=== PATIENT | female | born 1960 | race Caucasian/White ===

== ENCOUNTER 2016-10-07 11:55 | Inpatient (IN) ==
[2016-10-07] MEDS ORDERED: Ipratropium/Albuterol Neb 3 ML IH ONE (12:03)
[2016-10-07] MEDS ORDERED: methylPREDNISolone 125 MG/2 ML VIAL IVP ONE (12:03)
--- NOTE | 2016-10-07 12:07 | Emergency Department Note ---
Disposition Clinical Impression: COPD exacerbation Disposition: Admitted As Inpatient Condition: Fair Referrals: Rachel Velez [employer] [Primary Care Provider] - Forms: ED Satisfaction Letter Time of Disposition: 13:35 SOB HPI - General Chief Complaint: ED Shortness of Breath/Dyspnea Stated Complaint: PEÑA Time Seen by Provider: 10/07/16 12:03 Source: family Mode of arrival: wheelchair Limitations: altered mental status Nursing Notes Reviewed: Yes Vital Signs Reviewed: Yes - History of Present Illness 56-year-old female with a history COPD smokes 2 packs of cigarettes a day comes in with increasing shortness of breath and altered mental status. Family states they were on her way to a doctor's appointment in [place] and stopped here due to the increased respiratory difficulty. Patient has been intubated in the past. On arrival initially patient was minimally responsive but with blood draws IV sticks patient was more awake was placed on BiPAP. Pt Subjective Complaint: shortness of breath Onset (ago): day(s) Context: recent illness Severity: moderate, severe Consistency/Duration: constant Improves with: nothing Worsens with: nothing Known history of: COPD Associated symptoms: Reports: cough, polyuria Treatment prior to arrival: none Cough present: Yes - Related Data Home Medications Medication Instructions Recorded Confirmed Albuterol Sulfate [Albuterol 1 puff IH Q4HR PRN 10/22/15 08/05/16 Inhaler] Alprazolam [Xanax 1 MG Tablet] 1 mg PO QID 10/22/15 08/05/16 Tiotropium [Spiriva] 18 mcg IH DAILY 10/22/15 08/05/16 Carisoprodol [Soma] 350 mg PO 1-2XD PRN 10/29/15 08/05/16 HYDROcodone/Acet 10/325 mg [[place] 1 each PO Q6H PRN 10/29/15 08/05/16 10-325 mg] Meloxicam [Mobic] 15 mg PO DAILY PRN 10/29/15 08/05/16 Montelukast [Singulair] 10 mg PO DAILY 10/29/15 08/05/16 TraZODone 50 mg PO HS PRN 10/29/15 08/05/16 Previous Rx's Medication Instructions Recorded Albuterol Neb [Proventil Neb] 3 ml IH Q4HR #0 11/06/15 Levofloxacin [Levaquin] 500 mg PO DAILY #5 tablet 11/06/15 GuaiFENesin ER [Mucinex] 1,200 mg PO BID #20 tbbp.12hr 08/05/16 Levofloxacin [Levaquin] 500 mg PO DAILY #10 tablet 08/05/16 PredniSONE [Prednisone] 60 mg PO DAILY 5 Days 08/05/16 Allergies Allergy/AdvReac Type Severity Reaction Status Date / Time naproxen AdvReac Nausea Verified 08/05/16 14:23 Constitutional: Denies: fever, chills, weakness, weight change Eyes: Denies: eye pain, eye discharge, vision change ENT ED: Denies: ear pain, throat pain, dental pain, hearing loss, epistaxis, congestion, dysphagia Cardiovascular: Denies: chest pain, palpitations, dyspnea on exertion, edema, syncope Respiratory: Reports: cough, dyspnea, wheezes. Denies: hemoptysis, stridor Gastrointestinal: Denies: abdominal pain, nausea, vomiting, diarrhea, constipation, hematemesis, melena, hematochezia Genitourinary: Denies: dysuria, frequency, hematuria, discharge Musculoskeletal: Denies: back pain, neck pain, arthralgia, myalgia Integumentary: Denies: rash, abrasion, lesions Neurological: Denies: headache, weakness, numbness, paresthesias, confusion, abnormal gait, vertigo Psychiatric: Denies: anxiety, depression, suicidal thoughts, homicidal thoughts , auditory hallucinations, visual hallucinations Endocrine: Denies: fatigue Hematological/Lymphatic: Denies: easy bleeding, easy bruising Allergic/Immunologic: Denies: facial swelling, urticaria Past Medical History - Past Medical History Medical history: Reports: COPD Surgical history: Reports: non-contributory, other (Tonsillectomy, cervical cancer, breast biopsy 2) Psychiatric history: Reports: anxiety, depression - Social History Smoking Status: Current every day smoker Smokeless Tobacco Status: No Alcohol use: Reports: none Drug use: Reports: none Physical Exam - General Limitations: no limitations General appearance: anxious, in distress (Moderate) - Head Head exam: atraumatic, normocephalic, normal inspection - Eye Eye exam: Present: normal appearance, PERRL, EOMI - ENT ENT exam: normal exam, normal oropharynx, mucous membranes moist - Neck Neck exam: Present: normal inspection, full ROM, trachea midline - Chest Chest inspection: Present: normal inspection, symmetric chest wall rise - Respiratory Respiratory exam: Present: normal lung sounds bilaterally - Cardiovascular Cardiovascular exam: Present: regular rate, normal rhythm, normal heart sounds - Abdominal Exam Abdominal exam: Present: soft, Non-Tender. Absent: tenderness, distention, guarding, rebound, rigidity - Extremities Exam Extremities exam: Present: normal inspection, full ROM. Absent: tenderness, pedal edema - Expanded Lower Extremity Exam Neurovascular/Tendon exam: Absent: motor deficit, sensory deficit, tendon deficit Gait: not tested/not observed - Back Exam Back exam: Present: normal inspection, full ROM. Absent: tenderness - Neurological Exam Neurological exam: Present: other (Somnolent but does arouse fairly easily.) - Psychiatric Psychiatric exam: Present: normal affect, normal mood - Skin Skin exam: Present: warm, dry, intact, normal color Course - Reevaluation(s) Reevaluation #1: A 56-year-old female with a history of COPD comes in pretty obtunded with difficulty breathing. Was placed on BiPAP initially and had significant improvement rather quickly. Blood gas shows a normal pH and good oxygenation with a slightly elevated CO2. Patient was able to tolerate the BiPAP with improvement. Time: 13:34 - Consultations Consultation #1: Test with , admit. Dr Woody indicates that he would make a decision on the antibiotics. Time: 13:34 Vital Signs Temperature 98.2 F 10/07/16 11:56 Pulse Rate 112 10/07/16 11:56 Respiratory Rate 36 10/07/16 11:56 Blood Pressure 125/89 10/07/16 11:56 O2 Sat by Pulse Oximetry 100 10/07/16 11:56 Temperature 98.2 F 10/07/16 11:56 Pulse Rate 112 10/07/16 11:56 Respiratory Rate 36 10/07/16 12:10 Blood Pressure 125/89 10/07/16 12:10 O2 Sat by Pulse Oximetry 100 10/07/16 12:10 Shortness of Breath/Dyspnea - Lab Data Lab results reviewed: Yes I reviewed the patient's lab results. Result diagrams: 10/07/16 12:05 10/07/16 12:05 Lab Results 10/07/16 10/07/16 10/07/16 Range/Units 12:05 12:05 12:05 WBC 8.2 (4.3-11.1) K/mcL RBC 4.81 (3.82-4.97) M/mcL Hgb 14.9 (11.5-15.4) g/dL Hct 45.8 H (35.3-44.9) % MCV 95.2 (83.0-100.0) fL MCH 31.0 (28.0-33.3) pg MCHC 32.5 (31.6-35.5) g/dL RDW 14.6 H (11.5-14.5) % Plt Count 357 (140-400) K/mcL MPV 9.4 (9.4-12.4) fL Immature Gran % 0.2 (0-4) % Seg Neutrophils % 65.2 % Lymphocytes % 20.1 % Monocytes % 13.7 % Eosinophils % 0.4 % Basophils % 0.4 % Neutrophils # 5.3 (1.6-8.9) K/mcL Lymphocytes # 1.6 (0.6-4.6) K/mcL Monocytes # 1.1 (0.0-1.3) K/mcL Eosinophils # 0.0 (0.0-0.6) K/mcL Basophils # 0.0 (0.0-0.2) K/mcL ABG pH (7.32-7.45) pH Units ABG pCO2 (35-45) mmHg ABG pO2 (85-104) mmHg ABG HCO3 (21-27) mEQ/L ABG Total CO2 (20-26) mEq/L ABG O2 Saturation (95-98) % ABG Base Excess (-2.0 to 3.0) mEq/L Blood Gas Modality Inspired O2 % Sodium 138 (136-145) mEq/L Potassium 4.1 (3.5-4.5) mEq/L Chloride 98 (98-109) mEq/L Carbon Dioxide 31 H (19-29) mEq/L BUN 11 (7-20) mg/dL Creatinine 0.69 (0.57-1.11) mg/dL Est GFR ( Amer) > 60 (> 60) Est GFR (Non-Af Amer) > 60 (> 60) BUN/Creatinine Ratio 16 (6-26) Glucose 117 H (70-99) mg/dL Calculated Osmolality 286 (280-300) Lactic Acid 1.1 (0.5-2.2) mmol/L Calcium 10.2 (8.6-10.8) mg/dL Troponin I (0-0.03) ng/mL B-Natriuretic Peptide (0-100) pg/mL 10/07/16 10/07/16 10/07/16 Range/Units 12:05 12:05 12:17 WBC (4.3-11.1) K/mcL RBC (3.82-4.97) M/mcL Hgb (11.5-15.4) g/dL Hct (35.3-44.9) % MCV (83.0-100.0) fL MCH (28.0-33.3) pg MCHC (31.6-35.5) g/dL RDW (11.5-14.5) % Plt Count (140-400) K/mcL MPV (9.4-12.4) fL Immature Gran % (0-4) % Seg Neutrophils % % Lymphocytes % % Monocytes % % Eosinophils % % Basophils % % Neutrophils # (1.6-8.9) K/mcL Lymphocytes # (0.6-4.6) K/mcL Monocytes # (0.0-1.3) K/mcL Eosinophils # (0.0-0.6) K/mcL Basophils # (0.0-0.2) K/mcL ABG pH 7.33 (7.32-7.45) pH Units ABG pCO2 60 H (35-45) mmHg ABG pO2 207 H (85-104) mmHg ABG HCO3 31.6 H (21-27) mEQ/L ABG Total CO2 33.4 H (20-26) mEq/L ABG O2 Saturation 100 H (95-98) % ABG Base Excess 3.7 H (-2.0 to 3.0) mEq/L Blood Gas Modality [place] Inspired O2 100 % Sodium (136-145) mEq/L Potassium (3.5-4.5) mEq/L Chloride (98-109) mEq/L Carbon Dioxide (19-29) mEq/L BUN (7-20) mg/dL Creatinine (0.57-1.11) mg/dL Est GFR ( Amer) (> 60) Est GFR (Non-Af Amer) (> 60) BUN/Creatinine Ratio (6-26) Glucose (70-99) mg/dL Calculated Osmolality (280-300) Lactic Acid (0.5-2.2) mmol/L Calcium (8.6-10.8) mg/dL Troponin I 0.00 (0-0.03) ng/mL B-Natriuretic Peptide < 10 (0-100) pg/mL - Radiology Data Radiology results reviewed: Yes I reviewed the patient's radiology results. Chest X-Ray 10/07/16 12:03 IMPRESSION: No acute cardiopulmonary process. Findings consistent with COPD. D/ / 10/07/2016 13:23:08 Beto Seymour MD / [email or web address] Interpreting Provider: Beto Seymour MD - EKG Data EKG attestation: Yes I reviewed and interpreted this EKG. EKG shows normal: Reports: sinus rhythm Rate: Reports: tachycardia Rhythm: Reports: PVC's Interpretation: Reports: no acute changes
[2016-10-07 12:18] LABS: Basophils % 0.4 %; Eosinophils % 0.4 %; Hematocrit 45.8 % (35.3-44.9); Hemoglobin 14.9 g/dL (11.5-15.4); Immature Granulocytes % 0.2 % (0-4); Lymphocytes # 1.6 K/mcL (0.6-4.6); Lymphocytes % 20.1 %; Mean Corpuscular HGB Conc 32.5 g/dL (31.6-35.5); Mean Corpuscular Volume 95.2 fL (83.0-100.0); Mean Platelet Volume 9.4 fL (9.4-12.4); Monocytes # 1.1 K/mcL (0.0-1.3); Monocytes % 13.7 %; Neutrophils # 5.3 K/mcL (1.6-8.9); Platelet Count 357 K/mcL (140-400); Red Blood Count 4.81 M/mcL (3.82-4.97); Red Cell Distribution Width 14.6 % (11.5-14.5); Segmented Neutrophils % 65.2 %
[2016-10-07 12:27] LABS: ABG Base Excess 3.7 mEq/L (-2.0 to 3.0); ABG HCO3 31.6 mEQ/L (21-27); ABG PCO2 60 mmHg (35-45); ABG PH 7.33 pH Units (7.32-7.45); ABG TCO2 33.4 mEq/L (20-26)
[2016-10-07] MEDS ORDERED: *HR* Rocuronium Bromide 50 MG/5 ML VIAL IVC ONE (12:27)
[2016-10-07] MEDS ORDERED: *HR* Etomidate 20 MG/10 ML AMPUL IVP ONE (12:27)
[2016-10-07 12:28] LABS: ABG PO2 207 mmHg (85-104)
[2016-10-07 12:29] LABS: ABG Oxygen Saturation 100 % (95-98); Blood Gas FiO2 100 %
[2016-10-07 12:30] LABS: BUN/Creatinine Ratio 16 (6-26); Blood Urea Nitrogen 11 mg/dL (7-20); Calcium 10.2 mg/dL (8.6-10.8); Carbon Dioxide 31 mEq/L (19-29); Chloride 98 mEq/L (98-109); Glucose 117 mg/dL (70-99); Osmolality,Calculated 286 (280-300); Potassium 4.1 mEq/L (3.5-4.5); Sodium 138 mEq/L (136-145); eGFR For African Americans > 60 (> 60); eGFR For Non-African Americans > 60 (> 60)
[2016-10-07] MEDS ORDERED: Naloxone 0.4 MG/ML INJ IVP PRN (14:31)
[2016-10-07] MEDS ORDERED: traZODone 50 MG TABLET PO PRN (14:35)
--- NOTE | 2016-10-07 14:43 | Internal Med History&Physical ---
Date of Encounter: 10/09/16 Time of Encounter: 14:37 Assessment and Plan (1) COPD exacerbation Current visit: Yes Status: Acute COPD exacerbation: -Admitted as inpatient. -Intranasal oxygen: 2 L/m: To keep saturation above 88% -Blood culture. -IV levofloxacin 750 mg every 24 hours. -IV Solu-Medrol 40 mg every 8 hours. -Inhaled DuoNeb every 4 hours. -DVT prophylaxis -GI prophylaxis -Smoking cessation discussed at length. -We will send respiratory panel (2) Severe protein-calorie malnutrition Current visit: Yes Status: Chronic May need help from dietitian evaluation (3) Tobacco use disorder Current visit: Yes Status: Chronic Not willing to quit smoking (4) Anxiety and depression Current visit: Yes Status: Chronic On Xanax (5) DVT prophylaxis Current visit: Yes Status: Acute Heparin Medical decision making: This patient is a [id number] risk of respiratory failure in spite of being on appropriate treatment. Internal Medicine - H&P: HPI Chief complaint: SOB Admitted From: Emergency Dept Plans for Post Hospital Care: Home History of present illness: PCP: [facility]. Brief past medical History: Severe COPD, Protein william malnutrition, Smoker, HPI: The patient was complaining of persistent cough along with shortness of breath for past 4 days. It was noted that her symptoms got progressively worse in the last 48 hours. Patient is complaining of yellowish-green expectoration and past 24 hours. Patient also claims that she had a spike of fever at home. I examined this patient in the emergency room. Patient's son was at bedside. Patient denies chest pain, dizziness, abdominal pain or diarrhea. Course in the emergency room: When patient arrived in the emergency room she was tachypneic and was gasping for air. Patient received IV steroids along with initial BiPAP treatment. Patient declined intubation. Patient responded well to this treatment. Reason for admission: COPD exacerbation. Family history: Noncontributory Past Med Surg Social Fam HX - Past Medical History Medical history: COPD Psychiatric history: anxiety, depression - Past Surgical History Surgical History: non-contributory, other (Tonsillectomy, cervical cancer, breast biopsy 2) - Social History Smoking Status: Current every day smoker Smokeless Tobacco Status: No Alcohol use: none Drug use: none - Family History Mother Living Status: Age at : 58 Cause of : COPD Hx Family Respiratory Disorders: Yes Father Living Status: Age at : 62 Cause of : complications from surgery Hx Family Cardiac Disorders: Yes (heart valve surgery) Hx Family Respiratory Disorders: Yes Internal Medicine - H&P: Meds Albuterol Sulfate [Albuterol Inhaler] 1 puff IH Q4HR PRN 10/22/15 [History] Alprazolam [Xanax 1 MG Tablet] 1 mg PO QID 10/22/15 [History] Tiotropium [Spiriva] 18 mcg IH DAILY 10/22/15 [History] Carisoprodol [Soma] 350 mg PO 1-2XD PRN 10/29/15 [History] HYDROcodone/Acet 10/325 mg [[place] 10-325 mg] 1 each PO Q6H PRN 10/29/15 [History ] Meloxicam [Mobic] 15 mg PO DAILY PRN 10/29/15 [History] Montelukast [Singulair] 10 mg PO DAILY 10/29/15 [History] TraZODone 50 mg PO HS PRN 10/29/15 [History] Albuterol Neb [Proventil Neb] 3 ml IH Q4HR #0 11/06/15 [Rx] Oxygen 2 l NS CONT 10/07/16 [History] Allergies ibuprofen Adverse Reaction (Verified 10/07/16 14:02) Gastrointestinal Upset naproxen Adverse Reaction (Verified 10/07/16 14:02) Nausea All Systems PM: A 10-system review of systems was performed and is negative for pertinent findings except as documented above in the HPI. - Constitutional Constitutional: no chills, no fever(s), no night sweats - EENT Eyes: no change in vision, no discharge, no pain, no photophobia Ears: no ear discharge, no ear pain, no tinnitus Nose, mouth and throat: no dysphagia, no nasal discharge, no neck pain, no sore throat - Cardiovascular Cardiovascular ROS IM: no chest pain, no diaphoresis, no dyspnea, no lightheadedness, no palpitations, no syncope - Respiratory Respiratory: dyspnea, wheezing, no cough, no excessive phlegm production - Gastrointestinal Gastrointestinal: no abdominal pain, no diarrhea, no hematemesis, no hematochezia, no melena, no nausea, no vomiting - Genitourinary Genitourinary: no change in urinary stream, no dysuria, no flank pain, no hematuria - Musculoskeletal Musculoskeletal ROS IM: no numbness, no tingling - Integumentary Integumentary IM: no rash, no unusual bruising - Neurological Neurological ROS: no confusion, no convulsions, no focal weakness, no numbness, no tingling, no tremor(s) - Hematologic/Lymphatic Hematologic/Lymphatic: no easy bruising - Constitutional Vitals: Temp Pulse Resp BP Pulse Ox 98.2 F 112 36 125/89 100 10/07/16 11:56 10/07/16 11:56 10/07/16 12:10 10/07/16 12:10 10/07/16 12:10 General appearance: Present: cachectic, A&O X 3, pleasant, answers questions appropriately - Head Head exam: Present: atraumatic, normocephalic - Eye Eye exam: Present: PERRL, conjuntiva pink, sclera anicteric Pupils: Present: PERRL - Neck Neck exam general surgery: Present: supple, trachea midline. Absent: lymphadenopathy - Respiratory Respiratory exam: Present: CTAB. Absent: accessory muscle use, rales, rhonchi, wheezes - Cardiovascular Cardiovascular exam: Present: RRR, +S1, +S2. Absent: diastolic murmur, gallop, rubs, systolic murmur - GI/Abdominal GI/Abdominal exam: Present: normal bowel sounds, soft, no peritoneal signs. Absent: distended, tenderness - Extremities Exam Extremities exam: Present: warm, radial pulses palpable and symetrical. Absent : calf tenderness, cyanotic, pedal edema - Neurological Exam Neurological exam: Present: CN II-XII intact, oriented X3, no focal deficits. Absent: pronater drift, facial droop, speech deficit - Skin Skin exam: Present: dry, intact Internal Med - H&P Results - Labs CBC & Chem 7: 10/08/16 03:38 10/08/16 03:38 Labs: Lab discussed with the emergency room physician.
[2016-10-07] MEDS: Ipratropium/Albuterol Neb 3 ML IH PRN ×3 (16:17→23:29)
[2016-10-07] MEDS: ALPRAZolam 1 MG TABLET PO SCH (17:26)
[2016-10-07] MEDS: MethylPREDNISolone 40 MG/ML VIAL IVP SCH (17:36)
[2016-10-07] MEDS: 0.9 % Sodium Chloride 1,000 ML IVC SCH (17:39)
[2016-10-07] MEDS: Levofloxacin 750 MG/150 ML 750 MG/150 ML BAG IVPB SCH (17:42)
[2016-10-07 18:07] LABS: Bilirubin,Urine Negative (Negative); Blood,Urine Negative (Negative); Clarity,Urine Cloudy (Clear); Color,Urine Yellow (Yellow); Glucose,Urine (UA) Normal (Normal); Ketones,Urine 15 mg/dL (Negative); Leukocyte Esterase,Urine Negative (Negative); Nitrite,Urine Negative (Negative); PH,Urine 5.5 pH Units (5.0-8.0); Protein,Urine Negative (Neg-Trace); Specific Gravity,Urine 1.025 (1.010-1.025); Urobilinogen,Urine Normal (Normal)
[2016-10-07 18:09] LABS: Bacteria,Urine None Seen per hpf (None-Few); Hyaline Casts,Urine None Seen per lpf (None-Few); RBC,Urine 0-3 per hpf (0-3); Squamous Epithelial Cell,Urine Many per lpf (None-Few); WBC,Urine 0-3 per hpf (0-3)
[2016-10-07] MEDS: *HR* Morphine 2 MG/ML SYRINGE IVP PRN (22:00)
[2016-10-08] MEDS ORDERED: ALPRAZolam 1 MG TABLET PO STA (00:40)
[2016-10-08] MEDS: MethylPREDNISolone 40 MG/ML VIAL IVP SCH ×3 (01:34→16:34)
[2016-10-08] MEDS: ALPRAZolam 1 MG TABLET PO SCH ×5 (01:36→21:59)
[2016-10-08 03:22] LABS: Adenovirus Not Detected (Not Detect); Coronavirus 229E Not Detected (Not Detect); Coronavirus HKU1 Not Detected (Not Detect); Coronavirus NL63 Not Detected (Not Detect); Human Metapneumovirus Not Detected (Not Detect); Human Rhinovirus/Enterovirus Not Detected (Not Detect); Influenza A Subtype 2009 H1 Not Detected (Not Detect); Influenza A Untypeable Not Detected (Not Detect); Influenza B Not Detected (Not Detect)
[2016-10-08 03:23] LABS: Bordetella Pertussis Not Detected (Not Detect); Chlamydophila pneumoniae Not Detected (Not Detect); Mycoplasma pneumoniae Not Detected (Not Detect); Parainfluenza Virus 1 Not Detected (Not Detect); Parainfluenza Virus 2 Not Detected (Not Detect); Parainfluenza Virus 3 Not Detected (Not Detect); Parainfluenza Virus 4 Not Detected (Not Detect); Respiratory Syncytial Virus Not Detected (Not Detect)
[2016-10-08 03:41] LABS: Coronavirus OC43 ***DETECTED*** (Not Detect)
[2016-10-08] MEDS: Ipratropium/Albuterol Neb 3 ML IH PRN ×2 (04:09→07:47)
[2016-10-08 04:23] LABS: Basophils % 0.2 %; Hemoglobin 13.7 g/dL (11.5-15.4); Immature Granulocytes % 0.3 % (0-4); Lymphocytes # 0.7 K/mcL (0.6-4.6); Lymphocytes % 11.5 %; Mean Corpuscular HGB Conc 32.6 g/dL (31.6-35.5); Mean Corpuscular Hemoglobin 30.8 pg (28.0-33.3); Mean Corpuscular Volume 94.4 fL (83.0-100.0); Mean Platelet Volume 9.5 fL (9.4-12.4); Monocytes # 0.3 K/mcL (0.0-1.3); Monocytes % 4.6 %; Neutrophils # 5.3 K/mcL (1.6-8.9); Platelet Count 322 K/mcL (140-400); Red Blood Count 4.45 M/mcL (3.82-4.97); Red Cell Distribution Width 14.3 % (11.5-14.5); Segmented Neutrophils % 83.4 %
[2016-10-08 04:43] LABS: Alanine Aminotransferase 18 Units/L (0-55); Albumin 3.4 g/dL (3.5-5.0); Albumin/Globulin Ratio 0.8 (1.1-2.2); Alkaline Phosphatase 93 Units/L (38-126); Aspartate Amino Transferase 22 Units/L (5-34); BUN/Creatinine Ratio 21 (6-26); Bilirubin,Total 0.3 mg/dL (0.2-1.2); Blood Urea Nitrogen 14 mg/dL (7-20); Calcium 9.6 mg/dL (8.6-10.8); Carbon Dioxide 24 mEq/L (19-29); Chloride 102 mEq/L (98-109); Chol/HDL Ratio 2.5 (0-4.9); Cholesterol 170 mg/dL (< 200); Globulin 4.1 g/dL (2.4-3.5); Glucose 109 mg/dL (70-99); HDL Cholesterol 67 mg/dL (40-59); LDL Cholesterol,Calculated 91 mg/dL (0-99); Osmolality,Calculated 289 (280-300); Phosphorous 3.8 mg/dL (2.3-4.7); Potassium 4.8 mEq/L (3.5-4.5); Sodium 139 mEq/L (136-145); Total Protein 7.5 g/dL (6.0-8.3); Triglycerides 58 mg/dL (< 150); eGFR For African Americans > 60 (> 60); eGFR For Non-African Americans > 60 (> 60)
[2016-10-08] MEDS: Levofloxacin 750 MG/150 ML 750 MG/150 ML BAG IVPB SCH (08:16)
--- NOTE | 2016-10-08 09:48 | Electrocardiograph Report ---
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
--- NOTE | 2016-10-08 10:51 | Internal Med Progress Note ---
Date of Encounter: 10/08/16 Time of Encounter: 10:49 - Assessment and plan (1) Acute exacerbation of chronic obstructive airways disease Current Visit: Yes Status: Acute Assessment and plan: continue scheduled bronchodilators and IV steroids, Singulair; empiric antibiotic therapy; no e/o infiltrates on chest XRay; continue supplemental O2 as needed, noted to be on home O2; Will consult Pulmonology for further recommendations; Patient refuses intubation but wishes to have CPR and resuscitation; palliative care consult for DPOA and living will paperwork and code status discussion; (2) Acute on chronic respiratory failure with hypoxia Current Visit: Yes Status: Acute Assessment and plan: due to COPD exacerbation; plan as above; (3) GERD (gastroesophageal reflux disease) Current Visit: Yes Status: Chronic Qualifiers: Esophagitis presence: esophagitis presence not specified Qualified Code(s) : K21.9 - Gastro-esophageal reflux disease without esophagitis (4) Severe protein-calorie malnutrition Current Visit: Yes Status: Chronic (5) Tobacco use disorder Current Visit: Yes Status: Chronic (6) Anxiety and depression Current Visit: Yes Status: Chronic Assessment and plan: patient noted to have problems with chronic anxiety disorder and panic attacks and had side-effects from several anxiolytics used as outpatient; continue home dose of Xanax and start PRN IV Ativan for longer lasting effects; needs outpatient Psychiatry f/up; - Subjective Interval history: Feels better but reports some shortness of breath and productive cough with brownish sputum; intermittent left and right sided chest pains from coughing; also has panic attacks; - Constitutional Vitals: Temp Pulse Resp BP Pulse Ox 98.2 F 85 20 112/76 96 10/08/16 03:53 10/08/16 07:00 10/08/16 07:47 10/08/16 07:00 10/08/16 07:47 General appearance: Present: cachectic, A&O X 3, answers questions appropriately - Respiratory Respiratory exam: Present: rhonchi (B/L diffuse rhonchi and end-expiratory wheezing), wheezes. Absent: accessory muscle use, rales - GI/Abdominal GI/Abdominal exam: Present: normal bowel sounds, soft, no peritoneal signs. Absent: distended, tenderness - Extremities Exam Extremities exam: Present: full ROM, warm, radial pulses palpable and symetrical. Absent: calf tenderness, cyanotic, pedal edema - Neurological Exam Neurological exam: Present: CN II-XII intact, oriented X3, no focal deficits. Absent: pronater drift, facial droop, speech deficit - Skin Skin exam: Present: dry, intact Internal Medicine: Result - Labs CBC & Chem 7: 10/08/16 03:38 10/08/16 03:38 Labs: Short CBC 10/08/16 Range/Units 03:38 WBC 6.4 (4.3-11.1) K/mcL Hgb 13.7 (11.5-15.4) g/dL Hct 42.0 (35.3-44.9) % Plt Count 322 (140-400) K/mcL Neutrophils # 5.3 (1.6-8.9) K/mcL BMP 10/08/16 03:38 Sodium 139 Potassium 4.8 H Chloride 102 Carbon Dioxide 24 BUN 14 Creatinine 0.68 Glucose 109 H Calcium 9.6 Cardiac Enzymes 10/07/16 10/07/16 10/08/16 Range/Units 14:46 22:43 03:38 Troponin I 0.00 0.01 0.00 (0-0.03) ng/mL Liver Function 10/08/16 Range/Units 03:38 Total Bilirubin 0.3 (0.2-1.2) mg/dL AST 22 (5-34) Units/L ALT 18 (0-55) Units/L Alkaline Phosphatase 93 (38-126) Units/L Albumin 3.4 L (3.5-5.0) g/dL Urine 10/07/16 Range/Units 18:00 Urine Color Yellow (Yellow) Urine Clarity Cloudy A (Clear) Urine pH 5.5 (5.0-8.0) pH Units Ur Specific [place] 1.025 (1.010-1.025) Urine Protein Negative (Neg-Trace) mg/dL Urine Glucose (UA) Normal (Normal) mg/dL - ABG Interpretation ABG results: ABG ABG pH 7.33 pH Units (7.32-7.45) 10/07/16 12:17 ABG pCO2 60 mmHg (35-45) H 10/07/16 12:17 ABG pO2 207 mmHg (85-104) H 10/07/16 12:17 ABG O2 Saturation 100 % (95-98) H 10/07/16 12:17 Consult Discharge Plan - Plan Referrals: Rachel Velez CNP [Primary Care Provider] - 10/15/16 10:00 am
[2016-10-08] MEDS: Ipratropium/Albuterol Neb 3 ML IH SCH ×4 (11:52→23:32)
[2016-10-08] MEDS ORDERED: Albuterol 2.5 MG/3 ML NEBULIZER IH SCH (12:00)
[2016-10-08] MEDS ORDERED: Albuterol 2.5 MG/3 ML NEBULIZER IH PRN (12:03)
[2016-10-08] MEDS: *HR* Morphine 2 MG/ML SYRINGE IVP PRN (16:32)
--- NOTE | 2016-10-08 16:49 | Pulmonology Consult Note ---
Date of Encounter: 10/08/16 Time of Encounter: 16:20 Assessment and Plan (1) Acute on chronic respiratory failure with hypoxia Current Visit: Yes Status: Acute Wean off FIO2 to keep SPO2 arund 90% and treatment of copd exacerbation (2) COPD exacerbation Current Visit: Yes Status: Acute She is on appropriate treatment with antibiotic and bronchodilators. I will increase her systemic steroid and she need to quit smoking. (3) Tobacco use disorder Current Visit: Yes Status: Chronic Advised her to quit smoking. History of Present Illness Consult date: 10/08/16 Requesting physician: Alissa Ramos Reason for consult: COPD Chief complaint: Dyspnea History of present illness: Pleasant 56-year-old female with severe COPD we will continue to smoke tobacco presented to the hospital having symptoms consistent with COPD exacerbation. Patient has been having more productive cough with brown sputum and no hemoptysis with left-sided chest pain as well as wheezing and more shortness of breath. She was treated as outpatient with antibiotics without success. Then she feeling better now since she is being admitted and treated as inpatient. She is on home oxygen 2 L/m and she had multiple exacerbation. I have tried hard working with her to quit smoking as outpatient, unfortunately due to hair and anxiety it has been very challenging for her to quit smoking. Past Med Surg Social Fam HX - Past Medical History Medical history: COPD Psychiatric history: anxiety, depression - Past Surgical History Surgical History: non-contributory, other (Tonsillectomy, cervical cancer, breast biopsy 2) - Social History Smoking Status: Current every day smoker Packs per day: 1/4 Smokeless Tobacco Status: No Alcohol use: none Drug use: none - Family History Mother Living Status: Age at : 58 Cause of : COPD Hx Family Respiratory Disorders: Yes Father Living Status: Age at : 62 Cause of : complications from surgery Hx Family Cardiac Disorders: Yes (heart valve surgery) Hx Family Respiratory Disorders: Yes Medications and Allergies Albuterol Sulfate [Albuterol Inhaler] 1 puff IH Q4HR PRN 10/22/15 [History] Alprazolam [Xanax 1 MG Tablet] 1 mg PO QID 10/22/15 [History] Tiotropium [Spiriva] 18 mcg IH DAILY 10/22/15 [History] Carisoprodol [Soma] 350 mg PO 1-2XD PRN 10/29/15 [History] HYDROcodone/Acet 10/325 mg [[place] 10-325 mg] 1 each PO Q6H PRN 10/29/15 [History ] Meloxicam [Mobic] 15 mg PO DAILY PRN 10/29/15 [History] Montelukast [Singulair] 10 mg PO DAILY 10/29/15 [History] TraZODone 50 mg PO HS PRN 10/29/15 [History] Albuterol Neb [Proventil Neb] 3 ml IH Q4HR #0 11/06/15 [Rx] Oxygen 2 l NS CONT 10/07/16 [History] Allergies ibuprofen Adverse Reaction (Verified 10/07/16 14:02) Gastrointestinal Upset naproxen Adverse Reaction (Verified 10/07/16 14:02) Nausea All Systems: A 10-system review of systems was performed and is negative for pertinent findings except as documented above in the HPI. Physical Examination Vital Signs: Vital Signs, Last 4 Hours Temp Pulse Resp BP Pulse Ox 10/08/16 15:00 97.5 F L 104 20 101/67 93 L General appearance: no acute distress Eyes: nonicteric ENT: oropharynx moist Mallampati (class): 1 Neck: supple, no lymphadenopathy Effort: mildly labored Inspection: hyperextended Auscultation: bilateral: rhonchi Percussion: bilateral: not dull Cardiovascular: regular rate and rhythm Gastrointestinal: normoactive bowel sounds Extremities: no cyanosis normal mental status, non-focal exam anxious Results - Laboratory Findings CBC and BMP: 10/08/16 03:38 10/08/16 03:38 ABG ABG pH 7.33 pH Units (7.32-7.45) 10/07/16 12:17 ABG pCO2 60 mmHg (35-45) H 10/07/16 12:17 ABG pO2 207 mmHg (85-104) H 10/07/16 12:17 ABG O2 Saturation 100 % (95-98) H 10/07/16 12:17 Abnormal lab findings: Abnormal lab results ABG pCO2 60 mmHg (35-45) H 10/07/16 12:17 ABG pO2 207 mmHg (85-104) H 10/07/16 12:17 ABG HCO3 31.6 mEQ/L (21-27) H 10/07/16 12:17 ABG Total CO2 33.4 mEq/L (20-26) H 10/07/16 12:17 ABG O2 Saturation 100 % (95-98) H 10/07/16 12:17 ABG Base Excess 3.7 mEq/L (-2.0 to 3.0) H 10/07/16 12:17 Potassium 4.8 mEq/L (3.5-4.5) H 10/08/16 03:38 Glucose 109 mg/dL (70-99) H 10/08/16 03:38 Albumin 3.4 g/dL (3.5-5.0) L 10/08/16 03:38 Globulin 4.1 g/dL (2.4-3.5) H 10/08/16 03:38 Albumin/Globulin Ratio 0.8 (1.1-2.2) L 10/08/16 03:38 HDL Cholesterol 67 mg/dL (40-59) H 10/08/16 03:38 Urine Clarity Cloudy (Clear) A 10/07/16 18:00 Urine Ketones 15 mg/dL (Negative) H 10/07/16 18:00 Ur Squamous Epith Cells Many per lpf (None-Few) H 10/07/16 18:00 Coronavirus OC43 (PCR) DETECTED (Not Detect) A 10/08/16 01:59 - Diagnostic Findings Chest x-ray: report reviewed, image reviewed - Clinical Findings Intake & Output: Intake & Output 10/08/16 10/08/16 10/08/16 07:59 15:59 23:59 Intake Total 240 / 240 Output Total 400 / 400 Balance -400 / -400 240 / 240 Weight 40.4 kg Consult Discharge Plan - Plan Referrals: Rachel Velez, SEASONING MIXER [Primary Care Provider] - 10/15/16 10:00 am
[2016-10-08] MEDS: Acetylcysteine 10% 2 ML INHSOL IH SCH ×2 (16:55→19:55)
[2016-10-08] MEDS: *HR* Heparin 5,000 UNIT/ML VIAL SQ SCH (17:25)
[2016-10-08] MEDS: 0.9 % Sodium Chloride 1,000 ML IVC SCH ×2 (19:25→19:34)
[2016-10-09] MEDS ORDERED: methylPREDNISolone 125 MG/2 ML VIAL IVP SCH
[2016-10-09] MEDS: Acetylcysteine 10% 2 ML INHSOL IH SCH ×4 (04:12→20:54)
[2016-10-09] MEDS: Ipratropium/Albuterol Neb 3 ML IH SCH ×5 (04:12→20:53)
[2016-10-09] MEDS: *HR* Heparin 5,000 UNIT/ML VIAL SQ SCH ×3 (06:19→20:34)
[2016-10-09] MEDS: MethylPREDNISolone 40 MG/ML VIAL IVP SCH ×2 (08:03)
[2016-10-09] MEDS: ALPRAZolam 1 MG TABLET PO SCH ×4 (08:36→20:35)
[2016-10-09] MEDS: Levofloxacin 500 MG/100 ML 500 MG/100 ML BAG IVPB SCH (08:38)
[2016-10-09] MEDS: 0.9 % Sodium Chloride 1,000 ML IVC SCH (10:12)
--- NOTE | 2016-10-09 12:43 | Palliative - Consult Note ---
Date of Encounter: 10/09/16 Time of Encounter: 11:00 - Assessment and Plan (1) Dyspnea Current Visit: Yes Status: Acute Assessment and plan: Supplemental oxygen at 2-3 L per nasal cannula. Nebulizers per pulmonology/ hospitalist. Qualifiers: Dyspnea type: shortness of breath Qualified Code(s): R06.02 - Shortness of breath (2) Anxiety and depression Current Visit: Yes Status: Chronic Assessment and plan: Continue with Xanax QID as scheduled. field services director following for discharge needs. Packaging Design Engineer support will be provided. (3) Severe protein-calorie malnutrition Current Visit: Yes Status: Chronic Assessment and plan: Dietitian following. (4) Goals of care, counseling/discussion Current Visit: Yes Status: Acute Assessment and plan: field services director following for discharge needs. Discussed goals of care with Ms. Sharma regarding discharge planning and code status. She wanted more information regarding mechanical ventilation. Discussed patient's prior experience with mechanical ventilation as well as her father's experience with long term acute care registered nurse mechanical ventilation (4 months). During the conversation, Ms. Sharma 's anxiety level began to elevate, so the discussion was put on pause. Will follow up for additional questions/concerns when her daughter can be present in the room. Palliative-CN HPI - Data of Consult Patient: new to practice Consult date: 10/09/16 Requesting Physician: Alissa Ramos MD Primary Care Provider: Rachel Velez CNP - Consult Narrative Palliative Care/Comfort Measures: Palliative care Reason for consult: Goals of care History of present illness: Ms. Sharma is a 56 year old female presenting to [facility] with complaints of difficulty breathing and altered mental status. Symptoms started approximately 4 days prior to admission. While in the emergency department, Ms. Sharma was placed on BiPAP therapy in the ED after declining intubation. She was admitted for further work-up and treatment. A respiratory panel was positive for coronavirus. She is being treated for an acute exacerbation of COPD, acute on chronic respiratory failure. Ms. Sharma also suffers from chronic anxiety. Ms. Sharma has a history of chronic pain due to a work related injury. She follows with Dr. Morales out of [place]. OARRS report reviewed and appropriate. Ms. Sharma is mostly sedentary. Her anxiety contributes to this lifestyle. She expressed concerns with her spirituality as she is no longer able to attend tenriism services due to her difficulty breathing. Ms. Sharma is not able to drive and relies on her family/friends/and support system for care needed outside of the home (phamacy trips, doctors appointments, grocery store) . CC: Alissa Ramos MD Past Med Surg Social Fam HX - Past Medical History Source: patient, old records reviewed Medical history: COPD, other (chronic back pain) Psychiatric history: anxiety, depression - Past Surgical History Surgical History: other (Tonsillectomy, cervical cancer, breast biopsy 2) - Social History Smoking Status: Current every day smoker Packs per day: 1/2 Smokeless Tobacco Status: No Alcohol use: none Drug use: none Current living situation: Home, With Family Activity Level: Mostly sedentary - Family History Mother Living Status: Age at : 58 Cause of : COPD Hx Family Respiratory Disorders: Yes Father Living Status: Age at : 62 Cause of : complications from surgery Hx Family Cardiac Disorders: Yes (heart valve surgery) Hx Family Respiratory Disorders: Yes Medications and Allergies Albuterol Sulfate [Albuterol Inhaler] 1 puff IH Q4HR PRN 10/22/15 [History] Alprazolam [Xanax 1 MG Tablet] 1 mg PO QID 10/22/15 [History] Tiotropium [Spiriva] 18 mcg IH DAILY 10/22/15 [History] Carisoprodol [Soma] 350 mg PO 1-2XD PRN 10/29/15 [History] HYDROcodone/Acet 10/325 mg [[place] 10-325 mg] 1 each PO Q6H PRN 10/29/15 [History ] Meloxicam [Mobic] 15 mg PO DAILY PRN 10/29/15 [History] Montelukast [Singulair] 10 mg PO DAILY 10/29/15 [History] TraZODone 50 mg PO HS PRN 10/29/15 [History] Albuterol Neb [Proventil Neb] 3 ml IH Q4HR #0 11/06/15 [Rx] Oxygen 2 l NS CONT 10/07/16 [History] Allergies ibuprofen Adverse Reaction (Verified 10/07/16 14:02) Gastrointestinal Upset naproxen Adverse Reaction (Verified 10/07/16 14:02) Nausea - Constitutional Constitutional ROS PAL: decreased appetite, fever(s), weight loss - EENT Eyes: no change in vision Ears: no decreased hearing Ears, nose, mouth, throat: no sinus pain, no dry mouth, no dysphagia, no hoarseness, no mouth pain, no sore throat - Cardiovascular Cardiovascular ROS: dyspnea on exertion, no chest pain, no chest pain with activity, no irregular heart rhythm, no pedal edema - Respiratory Respiratory: cough, dyspnea, dyspnea on exertion, wheezing, chest congestion, excessive phlegm production, no hemoptysis - Gastrointestinal Gastrointestinal: no abdominal pain, no constipation, no diarrhea, no nausea, no vomiting - Genitourinary Palliative ROS female: no difficulty voiding - Musculoskeletal Musculoskeletal ROS IM: muscle weakness - Integumentary ROS Integumentary: no sores, no wounds - Neurological Neurological ROS: weakness (global), no confusion, no lack of coordination, no numbness - Psychiatric Psychiatric general PM: anxiety, depression, difficulty concentrating Palliative Care-Exam - Constitutional Vitals: Temp Pulse Resp BP Pulse Ox 98.0 F 94 17 134/81 90 L 10/09/16 11:42 10/09/16 11:42 10/09/16 11:42 10/09/16 11:42 10/09/16 11:42 General appearance: Present: cooperative, mild distress (tearful), thin - Head Head Exam: Present: atraumatic - Eye Eye exam: Present: EOMI Pupils: Present: PERRL - ENT ENT exam: Present: mucous membranes moist - Expanded ENT Exam Teeth exam: Present: edentulous (dentures intact) - Respiratory Respiratory exam: Present: prolonged expiratory phase, rhonchi, wheezes, tachypnea - Cardiovascular Cardiovascular exam: Present: RRR. Absent: bradycardia, tachycardia - GI/Abdominal Exam GI/Abdominal exam: Present: normal bowel sounds, soft. Absent: tenderness - Rectal Rectal exam: Present: deferred - Neurological Exam Neurological exam: Present: alert, oriented X3, strengths equal and symetr throughout - Psychiatric Psychiatric exam: Present: anxious Additional comments: tearful - Skin Skin exam: Present: dry, warm Internal Medicine - CN: Reslt - Labs CBC & Chem 7: 10/08/16 03:38 10/08/16 03:38 - ABG Interpretation ABG results: ABG ABG pH 7.33 pH Units (7.32-7.45) 02/28/17 12:17 ABG pCO2 60 mmHg (35-45) H 10/07/16 12:17 ABG pO2 207 mmHg (85-104) H 10/07/16 12:17 ABG O2 Saturation 100 % (95-98) H 10/07/16 12:17 Consult Discharge Plan - Plan Referrals: Rachel Velez CNP [Primary Care Provider] - 10/15/16 10:00 am Palliative Quality Palliative Quality: Screen for Code Status: Yes, Screen for Goals of Care: Yes, Screen for Pain: Yes, If Pain Regimen Started, Initiate Bowel Regimen: NA, Screen for Nausea/Vomitting: Yes
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
[2016-10-09] MEDS: methylPREDNISolone 125 MG/2 ML VIAL IVP SCH ×2 (15:37→23:18)
[2016-10-09] MEDS: *HR* Morphine 2 MG/ML SYRINGE IVP PRN ×2 (15:38→20:35)
--- NOTE | 2016-10-09 17:01 | Pulmonology Progress Note ---
Date of Encounter: 10/09/16 Time of Encounter: 13:00 Assessment and Plan (1) Acute on chronic respiratory failure with hypoxia Current Visit: Yes Status: Acute patient is feeling better on current treatment. (2) COPD exacerbation Current Visit: Yes Status: Acute Continue current treatment. (3) Tobacco use disorder Current Visit: Yes Status: Chronic Advised patient to quit smoking Subjective Principal diagnosis: COPD exacerbation Interval history: Patient is feeling better now and she still have problems with thick sputum. Objective PUL Vital signs: Last Vital Signs Temp 98.1 F 10/09/16 16:14 Pulse 93 10/09/16 16:14 Resp 12 10/09/16 16:14 BP 107/61 10/09/16 16:14 Pulse Ox 94 L 10/09/16 16:14 General appearance: no acute distress ENT: oropharynx moist Effort: normal Auscultation: bilateral: diminished breath sounds Percussion: bilateral: not dull Cardiovascular: regular rate and rhythm Gastrointestinal: normoactive bowel sounds Extremities: no cyanosis normal mental status, non-focal exam anxious Results - Laboratory Findings CBC and BMP: 10/08/16 03:38 10/08/16 03:38 ABG ABG pH 7.33 pH Units (7.32-7.45) 10/07/16 12:17 ABG pCO2 60 mmHg (35-45) H 10/07/16 12:17 ABG pO2 207 mmHg (85-104) H 10/07/16 12:17 ABG O2 Saturation 100 % (95-98) H 10/07/16 12:17 Abnormal lab findings: Abnormal lab results ABG pCO2 60 mmHg (35-45) H 10/07/16 12:17 ABG pO2 207 mmHg (85-104) H 10/07/16 12:17 ABG HCO3 31.6 mEQ/L (21-27) H 10/07/16 12:17 ABG Total CO2 33.4 mEq/L (20-26) H 10/07/16 12:17 ABG O2 Saturation 100 % (95-98) H 10/07/16 12:17 ABG Base Excess 3.7 mEq/L (-2.0 to 3.0) H 10/07/16 12:17 Potassium 4.8 mEq/L (3.5-4.5) H 10/08/16 03:38 Glucose 109 mg/dL (70-99) H 10/08/16 03:38 POC Glucose 124 (58-89) H 10/08/16 20:19 Albumin 3.4 g/dL (3.5-5.0) L 10/08/16 03:38 Globulin 4.1 g/dL (2.4-3.5) H 10/08/16 03:38 Albumin/Globulin Ratio 0.8 (1.1-2.2) L 10/08/16 03:38 HDL Cholesterol 67 mg/dL (40-59) H 10/08/16 03:38 Urine Clarity Cloudy (Clear) A 10/07/16 18:00 Urine Ketones 15 mg/dL (Negative) H 10/07/16 18:00 Ur Squamous Epith Cells Many per lpf (None-Few) H 10/07/16 18:00 Coronavirus OC43 (PCR) DETECTED (Not Detect) A 10/08/16 01:59 - Clinical Findings Intake & Output: Intake & Output 10/09/16 10/09/16 10/09/16 07:59 15:59 23:59 Intake Total 0 / 0 1720 / 1720 Balance 0 / 0 1720 / 1720 Weight 41.4 kg Consult Discharge Plan - Plan Referrals: Rachel Velez, MATERIALS SUPERVISOR [Primary Care Provider] - 10/15/16 10:00 am
[2016-10-10] MEDS: Ipratropium/Albuterol Neb 3 ML IH SCH ×6 (00:11→19:55)
[2016-10-10] MEDS: *HR* LORazepam 2 MG/ML VIAL IVP PRN (02:26)
[2016-10-10] MEDS: Acetylcysteine 10% 2 ML INHSOL IH SCH (04:50)
[2016-10-10] MEDS: *HR* Heparin 5,000 UNIT/ML VIAL SQ SCH ×2 (06:16→18:54)
[2016-10-10] MEDS: methylPREDNISolone 125 MG/2 ML VIAL IVP SCH ×2 (08:15→16:27)
[2016-10-10] MEDS: Levofloxacin 500 MG/100 ML 500 MG/100 ML BAG IVPB SCH (08:16)
[2016-10-10] MEDS: ALPRAZolam 1 MG TABLET PO SCH ×4 (08:16→21:22)
--- NOTE | 2016-10-10 09:35 | Pulmonology Progress Note ---
Date of Encounter: 10/10/16 Time of Encounter: 08:05 Assessment and Plan (1) Acute on chronic respiratory failure with hypoxia Current Visit: Yes Status: Acute patient is feeling better on current treatment. 3/3 Patient breathing is about the same and suspect she is close to her baseline (2) COPD exacerbation Current Visit: Yes Status: Acute Continue current treatment. 3/3 Stop Mucomyst inhalation cause some COPD patient's current paradoxically react and may worsen dyspnea. Otherwise continue current treatment. (3) Tobacco use disorder Current Visit: Yes Status: Chronic Advised patient to quit smoking Subjective Principal diagnosis: COPD exacerbation Interval history: Patient is feeling better now and she still have problems with thick sputum. 3/3 Patient feels she has paradoxical reaction to Mucomyst and her shortness of breath was worsened Objective PUL Vital signs: Last Vital Signs Temp 97.8 F 10/10/16 00:08 Pulse 81 10/10/16 06:00 Resp 16 10/10/16 06:00 BP 127/89 10/10/16 06:00 Pulse Ox 96 10/10/16 08:55 General appearance: appears uncomfortable Eyes: nonicteric Mallampati (class): 1 Neck: supple Effort: mildly labored Auscultation: bilateral: diminished breath sounds Percussion: bilateral: not dull Cardiovascular: regular rate and rhythm Gastrointestinal: normoactive bowel sounds Extremities: no cyanosis normal mental status, non-focal exam depressed Results - Laboratory Findings CBC and BMP: 10/08/16 03:38 10/08/16 03:38 ABG ABG pH 7.33 pH Units (7.32-7.45) 10/07/16 12: ABG pCO2 60 mmHg (35-45) H 10/07/16 12:17 ABG pO2 207 mmHg (85-104) H 10/07/16 12:17 ABG O2 Saturation 100 % (95-98) H 10/07/16 12:17 Abnormal lab findings: Abnormal lab results ABG pCO2 60 mmHg (35-45) H 10/07/16 12:17 ABG pO2 207 mmHg (85-104) H 10/07/16 12:17 ABG HCO3 31.6 mEQ/L (21-27) H 10/07/16 12:17 ABG Total CO2 33.4 mEq/L (20-26) H 10/07/16 12:17 ABG O2 Saturation 100 % (95-98) H 10/07/16 12:17 ABG Base Excess 3.7 mEq/L (-2.0 to 3.0) H 10/07/16 12:17 Potassium 4.8 mEq/L (3.5-4.5) H 10/08/16 03:38 Glucose 109 mg/dL (70-99) H 10/08/16 03:38 POC Glucose 159 (58-89) H 10/10/16 00:28 Albumin 3.4 g/dL (3.5-5.0) L 10/08/16 03:38 Globulin 4.1 g/dL (2.4-3.5) H 10/08/16 03:38 Albumin/Globulin Ratio 0.8 (1.1-2.2) L 10/08/16 03:38 HDL Cholesterol 67 mg/dL (40-59) H 10/08/16 03:38 Urine Clarity Cloudy (Clear) A 10/07/16 18:00 Urine Ketones 15 mg/dL (Negative) H 10/07/16 18:00 Ur Squamous Epith Cells Many per lpf (None-Few) H 10/07/16 18:00 Coronavirus OC43 (PCR) DETECTED (Not Detect) A 10/08/16 01:59 - Clinical Findings Intake & Output: Intake & Output 10/09/16 10/10/16 10/10/16 23:59 07:59 15:59 Intake Total 540 / 540 200 / 200 Output Total 800 / 800 500 / 500 Balance -260 / -260 200 / 200 -500 / -500 Weight 41.4 kg Consult Discharge Plan - Plan Referrals: Rachel Velez, PROCESS ASSISTANT [Primary Care Provider] - 10/15/16 10:00 am
[2016-10-10] MEDS ORDERED: Carisoprodol 350 MG TABLET PO PRN (11:53)
[2016-10-10] MEDS ORDERED: Temazepam 15 MG CAPSULE PO PRN (11:53)
[2016-10-10] MEDS: *HR* HYDROcodone/Acet 10/325 mg TABLET PO PRN (16:27)
--- NOTE | 2016-10-10 17:21 | Internal Med Progress Note ---
Date of Encounter: 10/10/16 Time of Encounter: 12:30 - Assessment and plan (1) Acute exacerbation of chronic obstructive airways disease Status: Acute Assessment and plan: continues to have persistent anxiety, dyspnea at rest and minimal exertion. Pulmonology on board. Continue IV steroids, bronchodilators, Spiriva and supplemental O2. Will consider BiPAP as needed; palliative care team on board. Continue supportive care. (2) Acute on chronic respiratory failure with hypoxia Status: Acute (3) GERD (gastroesophageal reflux disease) Status: Chronic Qualifiers: Esophagitis presence: esophagitis presence not specified Qualified Code(s) : K21.9 - Gastro-esophageal reflux disease without esophagitis (4) Severe protein-calorie malnutrition Status: Chronic (5) Tobacco use disorder Status: Chronic (6) Anxiety and depression Status: Chronic - Subjective Interval history: Continues to be extremely anxious and short of breath, even with minimal activity. Agreeable to using BiPAP intermittently if needed, after much discussion. Also noted to require high flow oxygen intermittently due to panic attacks and anxiety. Reports some cough but overall feels slightly better. - Constitutional Vitals: Temp Pulse Resp BP Pulse Ox 97.8 F 100 20 121/90 94 L 10/10/16 16:20 10/10/16 15:00 10/10/16 16:11 10/10/16 15:00 10/10/16 16:11 General appearance: Present: cachectic, mild distress, A&O X 3 (very anxious), pleasant, answers questions appropriately - Respiratory Respiratory exam: Present: CTAB, wheezes (Bilateral diffuse expiratory wheezing) . Absent: accessory muscle use, rales, rhonchi - Cardiovascular Cardiovascular exam: Present: RRR, +S1, +S2, tachycardia. Absent: diastolic murmur, gallop, rubs, systolic murmur - GI/Abdominal GI/Abdominal exam: Present: normal bowel sounds, soft, no peritoneal signs. Absent: distended, tenderness - Neurological Exam Neurological exam: Present: CN II-XII intact, oriented X3, no focal deficits. Absent: pronater drift, facial droop, speech deficit Internal Medicine: Result - Labs CBC & Chem 7: 10/11/16 05:30 10/11/16 05:30 - ABG Interpretation ABG results: ABG ABG pH 7.33 pH Units (7.32-7.45) 10/07/16 12:17 ABG pCO2 60 mmHg (35-45) H 10/07/16 12:17 ABG pO2 207 mmHg (85-104) H 10/07/16 12:17 ABG O2 Saturation 100 % (95-98) H 10/07/16 12:17 Consult Discharge Plan - Plan Instructions: Prednisone (By mouth), Omeprazole (By mouth), Malnutrition (DC), Malnutrition (GEN), Chronic Obstructive Pulmonary Disease (DC), Chronic Obstructive Pulmonary Disease (GEN), Dyspnea (GEN) Additional Instructions: F/up with [facility] in 2-3 weeks Referrals: Justyna Richmond MD [Partnered Physician] - (this appointment has been request they will call you at home with appoinment) Rachel Velez CNP [Primary Care Provider] - 10/15/16 10:00 am Prescriptions: Omeprazole 20 mg PO DAILY #30 tablet. PredniSONE 40 mg PO DAILY #14 tablet
[2016-10-11] MEDS: Ipratropium/Albuterol Neb 3 ML IH SCH ×7 (00:13→23:55)
[2016-10-11] MEDS: methylPREDNISolone 125 MG/2 ML VIAL IVP SCH ×2 (00:28→08:18)
[2016-10-11] MEDS: *HR* HYDROcodone/Acet 10/325 mg TABLET PO PRN (04:13)
[2016-10-11 05:59] LABS: Basophils % 0.1 %; Hematocrit 37.2 % (35.3-44.9); Hemoglobin 12.4 g/dL (11.5-15.4); Immature Granulocytes % 0.4 % (0-4); Lymphocytes # 0.3 K/mcL (0.6-4.6); Lymphocytes % 4.9 %; Mean Corpuscular HGB Conc 33.3 g/dL (31.6-35.5); Mean Corpuscular Hemoglobin 31.7 pg (28.0-33.3); Mean Corpuscular Volume 95.1 fL (83.0-100.0); Mean Platelet Volume 10.1 fL (9.4-12.4); Monocytes # 0.2 K/mcL (0.0-1.3); Monocytes % 2.8 %; Neutrophils # 6.3 K/mcL (1.6-8.9); Platelet Count 266 K/mcL (140-400); Red Blood Count 3.91 M/mcL (3.82-4.97); Red Cell Distribution Width 14.6 % (11.5-14.5); Segmented Neutrophils % 91.8 %
[2016-10-11 06:11] LABS: BUN/Creatinine Ratio 31 (6-26); Blood Urea Nitrogen 19 mg/dL (7-20); Calcium 9.2 mg/dL (8.6-10.8); Carbon Dioxide 33 mEq/L (19-29); Chloride 99 mEq/L (98-109); Glucose 121 mg/dL (70-99); Osmolality,Calculated 294 (280-300); Potassium 4.3 mEq/L (3.5-4.5); Sodium 140 mEq/L (136-145); eGFR For African Americans > 60 (> 60); eGFR For Non-African Americans > 60 (> 60)
[2016-10-11] MEDS: *HR* Heparin 5,000 UNIT/ML VIAL SQ SCH ×2 (06:55→17:08)
[2016-10-11] MEDS: ALPRAZolam 1 MG TABLET PO SCH ×4 (08:18→21:35)
[2016-10-11] MEDS: Levofloxacin 500 MG/100 ML 500 MG/100 ML BAG IVPB SCH (08:19)
--- NOTE | 2016-10-11 09:34 | Palliative Progress Note ---
Date of Encounter: 10/11/16 Time of Encounter: 09:20 - Assessment and plan (1) Dyspnea Current Visit: Yes Status: Acute Assessment and plan: Much improved per the patient continue current medications plan per hospitalist team. Qualifiers: Dyspnea type: shortness of breath Qualified Code(s): R06.02 - Shortness of breath (2) Goals of care, counseling/discussion Current Visit: Yes Status: Acute Assessment and plan: Very long discussion with patient she does continue to be a full code but she is actively considering DNR status is Will follow up with her tomorrow. If the patient does go home prior to seeing her tomorrow and the patient will discuss this further with her family. (3) Anxiety and depression Current Visit: Yes Status: Chronic Assessment and plan: The patient states that she is much less anxious now than she was. Continue current medications plan per hospitalist team. (4) Acute exacerbation of chronic obstructive airways disease Current Visit: Yes Status: Acute Assessment and plan: Patient appears to be improving plan per hospitalist team continue present meds. - Time Spent With Patient Total time spent is greater than 50% in coordination of care (as documented) at patient's floor/unit and/or counseling patient: - Subjective Interval history: The patient is feeling better. It is able to carry on a conversation although she does appear somewhat short of breath. 8 steps feels like it wants to come up still feels like she still a lot of phlegm on the left-hand side. - Constitutional Vitals: Abnormal lab results RDW 14.6 % (11.5-14.5) H 10/11/16 05:30 Lymphocytes # 0.3 K/mcL (0.6-4.6) L 10/11/16 05:30 ABG pCO2 60 mmHg (35-45) H 10/07/16 12:17 ABG pO2 207 mmHg (85-104) H 10/07/16 12:17 ABG HCO3 31.6 mEQ/L (21-27) H 10/07/16 12:17 ABG Total CO2 33.4 mEq/L (20-26) H 10/07/16 12:17 ABG O2 Saturation 100 % (95-98) H 10/07/16 12:17 ABG Base Excess 3.7 mEq/L (-2.0 to 3.0) H 10/07/16 12:17 Carbon Dioxide 33 mEq/L (19-29) H 10/11/16 05:30 BUN/Creatinine Ratio 31 (6-26) H 10/11/16 05:30 Glucose 121 mg/dL (70-99) H 10/11/16 05:30 POC Glucose 116 (58-89) H 10/11/16 00:16 Albumin 3.4 g/dL (3.5-5.0) L 10/08/16 03:38 Globulin 4.1 g/dL (2.4-3.5) H 10/08/16 03:38 Albumin/Globulin Ratio 0.8 (1.1-2.2) L 10/08/16 03:38 HDL Cholesterol 67 mg/dL (40-59) H 10/08/16 03:38 Urine Clarity Cloudy (Clear) A 10/07/16 18:00 Urine Ketones 15 mg/dL (Negative) H 10/07/16 18:00 Ur Squamous Epith Cells Many per lpf (None-Few) H 10/07/16 18:00 Coronavirus OC43 (PCR) DETECTED (Not Detect) A 10/08/16 01:59 General appearance: Present: no acute distress - Head Head exam: Present: atraumatic, normal inspection - Eye Eye exam: Present: normal appearance - ENT ENT exam: Present: mucous membranes moist - Respiratory Respiratory exam: Present: decreased breath sounds, prolonged expiratory phase, rhonchi, wheezes - Cardiovascular Cardiovascular exam: Present: RRR - GI/Abdominal GI/Abdominal exam: Present: normal bowel sounds, soft. Absent: tenderness - Extremities Exam Extremities exam: Present: normal inspection. Absent: pedal edema, tenderness - Neurological Exam Neurological exam: Present: alert, oriented X3 - Psychiatric Psychiatric exam: Present: normal affect, normal mood. Absent: agitated, anxious - Skin Skin exam: Present: dry, warm Palliative Quality Palliative Quality: Screen for Code Status: Yes, Screen for Goals of Care: Yes, Screen for Pain: Yes, If Pain Regimen Started, Initiate Bowel Regimen: NA, Screen for Nausea/Vomitting: Yes - Labs CBC & Chem 7: 10/11/16 05:30 10/11/16 05:30 Labs: Laboratory Results - last 24 hr 10/10/16 10/10/16 10/10/16 06:07 11:23 17:11 WBC RBC Hgb Hct MCV MCH MCHC RDW Plt Count MPV Immature Gran % Seg Neutrophils % Lymphocytes % Monocytes % Eosinophils % Basophils % Neutrophils # Lymphocytes # Monocytes # Eosinophils # Basophils # Sodium Potassium Chloride Carbon Dioxide BUN Creatinine Est GFR ( Amer) Est GFR (Non-Af Amer) BUN/Creatinine Ratio Glucose POC Glucose 118 H 132 H 100 H Calculated Osmolality Calcium 10/11/16 10/11/16 10/11/16 00:16 05:30 05:30 WBC 6.9 RBC 3.91 Hgb 12.4 Hct 37.2 MCV 95.1 MCH 31.7 MCHC 33.3 RDW 14.6 H Plt Count 266 MPV 10.1 Immature Gran % 0.4 Seg Neutrophils % 91.8 Lymphocytes % 4.9 Monocytes % 2.8 Eosinophils % 0.0 Basophils % 0.1 Neutrophils # 6.3 Lymphocytes # 0.3 L Monocytes # 0.2 Eosinophils # 0.0 Basophils # 0.0 Sodium 140 Potassium 4.3 Chloride 99 Carbon Dioxide 33 H BUN 19 Creatinine 0.62 Est GFR ( Amer) > 60 Est GFR (Non-Af Amer) > 60 BUN/Creatinine Ratio 31 H Glucose 121 H POC Glucose 116 H Calculated Osmolality 294 Calcium 9.2 - ABG Interpretation ABG results: ABG ABG pH 7.33 pH Units (7.32-7.45) 10/07/16 12:17 ABG pCO2 60 mmHg (35-45) H 10/07/16 12:17 ABG pO2 207 mmHg (85-104) H 10/07/16 12:17 ABG O2 Saturation 100 % (95-98) H 10/07/16 12:17 Consult Discharge Plan - Plan Referrals: Rachel Velez [employer] [Primary Care Provider] - 10/15/16 10:00 am
--- NOTE | 2016-10-11 09:46 | Pulmonology Progress Note ---
Date of Encounter: 10/11/16 Time of Encounter: 08:50 Assessment and Plan (1) Acute on chronic respiratory failure with hypoxia Current Visit: Yes Status: Acute patient is feeling better on current treatment. 3/3 Patient breathing is about the same and suspect she is close to her baseline 3/4 patient is very close to her baseline (2) COPD exacerbation Current Visit: Yes Status: Acute Continue current treatment. 3/3 Stop Mucomyst inhalation cause some COPD patient's current paradoxically react and may worsen dyspnea. Otherwise continue current treatment. 3/4 I agree with palliative care. Unfortunately with her anxiety and socioeconomic situation, it becomes very difficult to treat her condition. Discussed with primary team. Her IV steroid can be change to oral prednisone and then to to wean off. Please call for any questions. (3) Tobacco use disorder Current Visit: Yes Status: Chronic Advised patient to quit smoking Subjective Principal diagnosis: COPD exacerbation Interval history: Patient is feeling better now and she still have problems with thick sputum. 3/3 Patient feels she has paradoxical reaction to Mucomyst and her shortness of breath was worsened 3/4 she denies any discomfort and her dyspnea at baseline. Objective PUL Vital signs: Last Vital Signs Temp 98.3 F 10/11/16 06:44 Pulse 80 10/11/16 07:37 Resp 16 10/11/16 07:48 BP 124/88 10/11/16 07:48 Pulse Ox 96 10/11/16 07:48 General appearance: no acute distress Eyes: nonicteric Neck: supple Effort: normal Auscultation: bilateral: diminished breath sounds Percussion: bilateral: not dull Cardiovascular: regular rate and rhythm Gastrointestinal: normoactive bowel sounds Extremities: no cyanosis normal mental status, non-focal exam mood appropriate Results - Laboratory Findings CBC and BMP: 10/11/16 05:30 10/11/16 05:30 ABG ABG pH 7.33 pH Units (7.32-7.45) 10/07/16 12:17 ABG pCO2 60 mmHg (35-45) H 10/07/16 12: ABG pO2 207 mmHg (85-104) H 10/07/16 12:17 ABG O2 Saturation 100 % (95-98) H 10/07/16 12:17 Abnormal lab findings: Abnormal lab results RDW 14.6 % (11.5-14.5) H 10/11/16 05:30 Lymphocytes # 0.3 K/mcL (0.6-4.6) L 10/11/16 05:30 ABG pCO2 60 mmHg (35-45) H 10/07/16 12:17 ABG pO2 207 mmHg (85-104) H 10/07/16 12:17 ABG HCO3 31.6 mEQ/L (21-27) H 10/07/16 12:17 ABG Total CO2 33.4 mEq/L (20-26) H 10/07/16 12:17 ABG O2 Saturation 100 % (95-98) H 10/07/16 12:17 ABG Base Excess 3.7 mEq/L (-2.0 to 3.0) H 10/07/16 12:17 Carbon Dioxide 33 mEq/L (19-29) H 10/11/16 05:30 BUN/Creatinine Ratio 31 (6-26) H 10/11/16 05:30 Glucose 121 mg/dL (70-99) H 10/11/16 05:30 POC Glucose 116 (58-89) H 10/11/16 00:16 Albumin 3.4 g/dL (3.5-5.0) L 10/08/16 03:38 Globulin 4.1 g/dL (2.4-3.5) H 10/08/16 03:38 Albumin/Globulin Ratio 0.8 (1.1-2.2) L 10/08/16 03:38 HDL Cholesterol 67 mg/dL (40-59) H 10/08/16 03:38 Urine Clarity Cloudy (Clear) A 10/07/16 18:00 Urine Ketones 15 mg/dL (Negative) H 10/07/16 18:00 Ur Squamous Epith Cells Many per lpf (None-Few) H 10/07/16 18:00 Coronavirus OC43 (PCR) DETECTED (Not Detect) A 10/08/16 01:59 - Clinical Findings Intake & Output: Intake & Output 10/10/16 10/11/16 10/11/16 23:59 07:59 15:59 Intake Total 100 / 100 Output Total 150 / 150 300 / 300 Balance -150 / -150 -300 / -300 100 / 100 Weight 44.5 kg Consult Discharge Plan - Plan Referrals: Rachel Velez, POLITICAL SCIENCE CHAIR [Primary Care Provider] - 10/15/16 10:00 am
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
[2016-10-11] MEDS: *HR* Morphine 2 MG/ML SYRINGE IVP PRN (21:35)
[2016-10-12] MEDS: Ipratropium/Albuterol Neb 3 ML IH SCH ×6 (03:50→23:18)
[2016-10-12] MEDS: *HR* Heparin 5,000 UNIT/ML VIAL SQ SCH ×2 (06:18→17:45)
[2016-10-12] MEDS: *HR* HYDROcodone/Acet 10/325 mg TABLET PO PRN ×2 (06:21→20:12)
[2016-10-12] MEDS ORDERED: Nitroglycerin 0.4 MG TAB.SUBL SL ONE (07:09)
--- NOTE | 2016-10-12 08:43 | Palliative Progress Note ---
Date of Encounter: 10/12/16 Time of Encounter: 08:00 - Assessment and plan (1) Dyspnea Current Visit: Yes Status: Acute Assessment and plan: Much improved per the patient continue current medications plan per hospitalist team. Episode of chest discomfort this morning sounds in all 4 like esophageal spasm. Did resolve with nitroglycerin EKG was reported as being normal. Qualifiers: Dyspnea type: shortness of breath Qualified Code(s): R06.02 - Shortness of breath (2) Goals of care, counseling/discussion Current Visit: Yes Status: Acute Assessment and plan: Very long discussion with patient she does continue to be a full code but she is actively considering DNR status is Will follow up with her tomorrow. If the patient does go home prior to seeing her tomorrow and the patient will discuss this further with her family. Very long discussion with family. Patient really does not wish to be intubated , however she is conflicted about being a full code or not. I have told the family and provided them with a DNR form that with regard to CODE STATUS intubation the family can advocate for her but she will need to be "all in or all out on the CODE STATUS. He is resuscitated she will require intubation. When he discuss this further. Given the fact the patient had an anxiety attack status post her bout of chest discomfort this morning I do not feel wakening her to have this discussion is appropriate at this time we will continue to follow up tomorrow. (3) Anxiety and depression Current Visit: Yes Status: Chronic Assessment and plan: The patient states that she is much less anxious now than she was. Continue current medications plan per hospitalist team. (4) Acute exacerbation of chronic obstructive airways disease Current Visit: Yes Status: Acute Assessment and plan: Patient appears to be improving plan per hospitalist team continue present meds. I agree with pulmonary that this patient is an extremely poor subacute for admission. I think that she should be DNR CCA DNI. I have advocated this with the family as well as the patient. Will discuss further. Jada agrees completely with a DO NOT INTUBATE part, they are not sure about the resuscitation aspect. I have told them however if the patient's heart does stop she will be placed on a ventilator. - Time Spent With Patient Total time spent is greater than 50% in coordination of care (as documented) at patient's floor/unit and/or counseling patient: - Subjective Interval history: The patient had an episode of chest discomfort this morning that felt like pressure in her chest and was making it difficult for her to breathe. After getting medications this has calmed down she is currently sleeping and breathing easily. - Constitutional Vitals: Abnormal lab results RDW 14.6 % (11.5-14.5) H 10/11/16 05:30 Lymphocytes # 0.3 K/mcL (0.6-4.6) L 10/11/16 05:30 ABG pCO2 60 mmHg (35-45) H 10/07/16 12:17 ABG pO2 207 mmHg (85-104) H 10/07/16 12:17 ABG HCO3 31.6 mEQ/L (21-27) H 10/07/16 12:17 ABG Total CO2 33.4 mEq/L (20-26) H 10/07/16 12:17 ABG O2 Saturation 100 % (95-98) H 10/07/16 12:17 ABG Base Excess 3.7 mEq/L (-2.0 to 3.0) H 10/07/16 12:17 Carbon Dioxide 33 mEq/L (19-29) H 10/11/16 05:30 BUN/Creatinine Ratio 31 (6-26) H 10/11/16 05:30 Glucose 121 mg/dL (70-99) H 10/11/16 05:30 POC Glucose 115 (58-89) H 10/12/16 05:23 Albumin 3.4 g/dL (3.5-5.0) L 10/08/16 03:38 Globulin 4.1 g/dL (2.4-3.5) H 10/08/16 03:38 Albumin/Globulin Ratio 0.8 (1.1-2.2) L 10/08/16 03:38 HDL Cholesterol 67 mg/dL (40-59) H 10/08/16 03:38 Urine Clarity Cloudy (Clear) A 10/07/16 18:00 Urine Ketones 15 mg/dL (Negative) H 10/07/16 18:00 Ur Squamous Epith Cells Many per lpf (None-Few) H 10/07/16 18:00 Coronavirus OC43 (PCR) DETECTED (Not Detect) A 10/08/16 01:59 General appearance: Present: no acute distress - Head Head exam: Present: atraumatic, normal inspection - Eye Eye exam: Present: normal appearance - Respiratory Respiratory exam: Present: decreased breath sounds, prolonged expiratory phase, wheezes (But generally somewhat clearer than yesterday. With fewer wheezes) - Cardiovascular Cardiovascular exam: Present: RRR - GI/Abdominal GI/Abdominal exam: Present: normal bowel sounds, soft. Absent: tenderness - Extremities Exam Extremities exam: Present: normal inspection. Absent: pedal edema, tenderness - Neurological Exam Neurological exam: Present: altered (Sleeping currently. I did not awaken her. History comes from family that was present.) - Skin Skin exam: Present: dry, warm Palliative Quality Palliative Quality: Screen for Code Status: Yes, Screen for Goals of Care: Yes, Screen for Pain: Yes, If Pain Regimen Started, Initiate Bowel Regimen: NA, Screen for Nausea/Vomitting: Yes - Labs CBC & Chem 7: 10/11/16 05:30 10/11/16 05:30 Labs: Laboratory Results - last 24 hr 10/11/16 10/11/16 10/11/16 06:46 11:13 18:05 POC Glucose 120 H 167 H 101 H 10/11/16 10/12/16 23:18 05:23 POC Glucose 104 H 115 H - ABG Interpretation ABG results: ABG ABG pH 7.33 pH Units (7.32-7.45) 10/07/16 12:17 ABG pCO2 60 mmHg (35-45) H 10/07/16 12:17 ABG pO2 207 mmHg (85-104) H 10/07/16 12:17 ABG O2 Saturation 100 % (95-98) H 10/07/16 12:17 Consult Discharge Plan - Plan Referrals: Rachel Velez CNP [Primary Care Provider] - 10/15/16 10:00 am
[2016-10-12] MEDS: ALPRAZolam 1 MG TABLET PO SCH ×4 (08:48→20:12)
[2016-10-12] MEDS: predniSONE 20 MG TABLET PO SCH (08:49)
--- NOTE | 2016-10-12 10:35 | Pulmonology Progress Note ---
Date of Encounter: 10/12/16 Time of Encounter: 09:40 Assessment and Plan (1) Acute on chronic respiratory failure with hypoxia Current Visit: Yes Status: Resolved patient is feeling better on current treatment. 3/3 Patient breathing is about the same and suspect she is close to her baseline 3/4 patient is very close to her baseline 3/5 patient is doing better today and documented bedside thinking patient doing better and she is responding to the current treatment (2) COPD exacerbation Current Visit: Yes Status: Acute Continue current treatment. 3/3 Stop Mucomyst inhalation cause some COPD patient's current paradoxically react and may worsen dyspnea. Otherwise continue current treatment. 3/4 I agree with palliative care. Unfortunately with her anxiety and socioeconomic situation, it becomes very difficult to treat her condition. Discussed with primary team. Her IV steroid can be change to oral prednisone and then to to wean off. Please call for any questions. 3/5 no additional recommendations. Continue bronchodilators (3) Tobacco use disorder Current Visit: Yes Status: Chronic Advised patient to quit smoking Subjective Principal diagnosis: COPD exacerbation Interval history: Patient is feeling better now and she still have problems with thick sputum. 3/3 Patient feels she has paradoxical reaction to Mucomyst and her shortness of breath was worsened 3/4 she denies any discomfort and her dyspnea at baseline. 3/5 patient is feeling her breathing is slowly getting better Objective PUL Vital signs: Last Vital Signs Temp 98.2 F 10/12/16 07:32 Pulse 91 10/12/16 07:32 Resp 19 10/12/16 10:20 BP 119/88 10/12/16 07:32 Pulse Ox 98 10/12/16 10:20 General appearance: no acute distress ENT: oropharynx moist Neck: supple, no lymphadenopathy Effort: normal Auscultation: left: clear, bilateral: diminished breath sounds Percussion: bilateral: not dull Cardiovascular: regular rate and rhythm Gastrointestinal: normoactive bowel sounds Extremities: no cyanosis normal mental status, non-focal exam mood appropriate Results - Laboratory Findings CBC and BMP: 10/11/16 05:30 10/11/16 05:30 ABG ABG pH 7.33 pH Units (7.32-7.45) 10/07/16 12:17 ABG pCO2 60 mmHg (35-45) H 10/07/16 12: ABG pO2 207 mmHg (85-104) H 10/07/16 12:17 ABG O2 Saturation 100 % (95-98) H 10/07/16 12:17 Abnormal lab findings: Abnormal lab results RDW 14.6 % (11.5-14.5) H 10/11/16 05:30 Lymphocytes # 0.3 K/mcL (0.6-4.6) L 10/11/16 05:30 ABG pCO2 60 mmHg (35-45) H 10/07/16 12:17 ABG pO2 207 mmHg (85-104) H 10/07/16 12:17 ABG HCO3 31.6 mEQ/L (21-27) H 10/07/16 12:17 ABG Total CO2 33.4 mEq/L (20-26) H 10/07/16 12:17 ABG O2 Saturation 100 % (95-98) H 10/07/16 12:17 ABG Base Excess 3.7 mEq/L (-2.0 to 3.0) H 10/07/16 12:17 Carbon Dioxide 33 mEq/L (19-29) H 10/11/16 05:30 BUN/Creatinine Ratio 31 (6-26) H 10/11/16 05:30 Glucose 121 mg/dL (70-99) H 10/11/16 05:30 POC Glucose 115 (58-89) H 10/12/16 05:23 Albumin 3.4 g/dL (3.5-5.0) L 10/08/16 03:38 Globulin 4.1 g/dL (2.4-3.5) H 10/08/16 03:38 Albumin/Globulin Ratio 0.8 (1.1-2.2) L 10/08/16 03:38 HDL Cholesterol 67 mg/dL (40-59) H 10/08/16 03:38 Urine Clarity Cloudy (Clear) A 10/07/16 18:00 Urine Ketones 15 mg/dL (Negative) H 10/07/16 18:00 Ur Squamous Epith Cells Many per lpf (None-Few) H 10/07/16 18:00 Coronavirus OC43 (PCR) DETECTED (Not Detect) A 10/08/16 01:59 - Clinical Findings Intake & Output: Intake & Output 10/11/16 10/12/16 10/12/16 23:59 07:59 15:59 Intake Total 500 / 500 240 / 240 Output Total 150 / 150 Balance 350 / 350 240 / 240 Weight 46.7 kg Consult Discharge Plan - Plan Referrals: Rachel Velez CNP [Primary Care Provider] - 10/15/16 10:00 am
[2016-10-13] MEDS: *HR* LORazepam 2 MG/ML VIAL IVP PRN (03:47)
[2016-10-13] MEDS: *HR* HYDROcodone/Acet 10/325 mg TABLET PO PRN (03:49)
[2016-10-13] MEDS: Ipratropium/Albuterol Neb 3 ML IH SCH ×5 (04:17→19:48)
[2016-10-13] MEDS: *HR* Heparin 5,000 UNIT/ML VIAL SQ SCH (05:13)
--- NOTE | 2016-10-13 07:57 | Pulmonology Progress Note ---
Date of Encounter: 10/13/16 Time of Encounter: 07:57 Assessment and Plan (1) Acute exacerbation of chronic obstructive airways disease Current Visit: Yes Status: Acute cont enteral steroids taper over two weeks at day of discharge cont BDs per home regimen smoking cessation (2) Goals of care, counseling/discussion Current Visit: Yes Status: Acute End stage COPD complicated by anxiety palliative care consulted. DNR/DNI appropirate code status per respiratory standpoint (3) Tobacco use disorder Current Visit: Yes Status: Chronic counselled on cessation (4) Acute on chronic respiratory failure with hypoxia Current Visit: Yes Status: Resolved wean Fio2 to base line 2L to keep Spo2 >88-92% (5) URI (upper respiratory infection) Current Visit: No Status: Acute s/t Coronavirus. Would stop abx Qualifiers: URI type: unspecified viral URI Qualified Code(s): J06.9 - Acute upper respiratory infection, unspecified; B97.89 - Other viral agents as the cause of diseases classified elsewhere Subjective Principal diagnosis: COPD exacerbation Interval history: weaned Fio2 to 3L. Patient still very anxious Seen by palliative care overall fairly poor insight into illness severity/ prognosis. Objective PUL Vital signs: Last Vital Signs Temp 97.9 F 10/13/16 05:47 Pulse 87 10/13/16 05:47 Resp 17 10/13/16 05:47 BP 118/76 10/13/16 05:47 Pulse Ox 96 10/13/16 05:47 General appearance: no acute distress Eyes: nonicteric Neck: no lymphadenopathy Effort: mildly labored Auscultation: bilateral: diminished breath sounds, wheezes (prolonged expiratory phase with faint wheeze ) Cardiovascular: regular rate and rhythm Extremities: no edema normal mental status anxious Results - Laboratory Findings CBC and BMP: 10/11/16 05:30 10/11/16 05:30 ABG ABG pH 7.33 pH Units (7.32-7.45) 10/07/16 12:17 ABG pCO2 60 mmHg (35-45) H 10/07/16 12:17 ABG pO2 207 mmHg (85-104) H 10/07/16 12:17 ABG O2 Saturation 100 % (95-98) H 10/07/16 12:17 Abnormal lab findings: Abnormal lab results RDW 14.6 % (11.5-14.5) H 10/11/16 05:30 Lymphocytes # 0.3 K/mcL (0.6-4.6) L 10/11/16 05:30 ABG pCO2 60 mmHg (35-45) H 10/07/16 12:17 ABG pO2 207 mmHg (85-104) H 10/07/16 12:17 ABG HCO3 31.6 mEQ/L (21-27) H 10/07/16 12:17 ABG Total CO2 33.4 mEq/L (20-26) H 10/07/16 12:17 ABG O2 Saturation 100 % (95-98) H 10/07/16 12:17 ABG Base Excess 3.7 mEq/L (-2.0 to 3.0) H 10/07/16 12:17 Carbon Dioxide 33 mEq/L (19-29) H 10/11/16 05:30 BUN/Creatinine Ratio 31 (6-26) H 10/11/16 05:30 Glucose 121 mg/dL (70-99) H 10/11/16 05:30 POC Glucose 127 (58-89) H 10/12/16 23:38 Albumin 3.4 g/dL (3.5-5.0) L 10/08/16 03:38 Globulin 4.1 g/dL (2.4-3.5) H 10/08/16 03:38 Albumin/Globulin Ratio 0.8 (1.1-2.2) L 10/08/16 03:38 HDL Cholesterol 67 mg/dL (40-59) H 10/08/16 03:38 Urine Clarity Cloudy (Clear) A 10/07/16 18:00 Urine Ketones 15 mg/dL (Negative) H 10/07/16 18:00 Ur Squamous Epith Cells Many per lpf (None-Few) H 10/07/16 18:00 Coronavirus OC43 (PCR) DETECTED (Not Detect) A 10/08/16 01:59 - Clinical Findings Intake & Output: Intake & Output 10/12/16 10/12/16 10/13/16 15:59 23:59 07:59 Intake Total 240 / 240 200 / 200 Output Total 275 / 275 550 / 550 Balance -35 / -35 -350 / -350 Weight 46 kg Consult Discharge Plan - Plan Referrals: Rachel Velez, [employer] [Primary Care Provider] - 10/15/16 10:00 am
[2016-10-13] MEDS: ALPRAZolam 1 MG TABLET PO SCH ×3 (08:41→17:12)
[2016-10-13] MEDS: predniSONE 20 MG TABLET PO SCH (08:41)
--- NOTE | 2016-10-13 09:37 | Palliative Progress Note ---
Date of Encounter: 10/13/16 Time of Encounter: 08:35 - Assessment and plan (1) Dyspnea Current Visit: Yes Status: Acute Assessment and plan: Getting breathing treatment currently. Patient does admit overall she feels somewhat better Qualifiers: Dyspnea type: shortness of breath Qualified Code(s): R06.02 - Shortness of breath (2) Goals of care, counseling/discussion Current Visit: Yes Status: Acute Assessment and plan: Very long discussion with patient she does continue to be a full code but she is actively considering DNR status is Will follow up with her tomorrow. If the patient does go home prior to seeing her tomorrow and the patient will discuss this further with her family. Very long discussion with family. Patient really does not wish to be intubated , however she is conflicted about being a full code or not. I have told the family and provided them with a DNR form that with regard to CODE STATUS intubation the family can advocate for her but she will need to be "all in or all out on the CODE STATUS. He is resuscitated she will require intubation. When he discuss this further. Given the fact the patient had an anxiety attack status post her bout of chest discomfort this morning I do not feel wakening her to have this discussion is appropriate at this time we will continue to follow up tomorrow. The patient requests I return a bit later to discuss this further. We will do so. (3) Anxiety and depression Current Visit: Yes Status: Chronic Assessment and plan: The patient states that she is much less anxious now than she was. Continue current medications plan per hospitalist team. (4) Acute exacerbation of chronic obstructive airways disease Current Visit: Yes Status: Acute Assessment and plan: Patient appears to be improving plan per hospitalist team continue present meds. I agree with pulmonary that this patient is an extremely poor subacute for admission. I think that she should be DNR CCA DNI. I have advocated this with the family as well as the patient. Will discuss further. Jada agrees completely with a DO NOT INTUBATE part, they are not sure about the resuscitation aspect. I have told them however if the patient's heart does stop she will be placed on a ventilator. Overall the patient feels like she is probably improving. Discussed CODE STATUS with her further today. - Time Spent With Patient Total time spent is greater than 50% in coordination of care (as documented) at patient's floor/unit and/or counseling patient: - Subjective Interval history: The patient is getting breathing treatment at this time. No specific complaint of except feeling the need for the breathing treatment. He has no questions at this time . - Constitutional Vitals: Abnormal lab results RDW 14.6 % (11.5-14.5) H 10/11/16 05:30 Lymphocytes # 0.3 K/mcL (0.6-4.6) L 10/11/16 05:30 ABG pCO2 60 mmHg (35-45) H 10/07/16 12:17 ABG pO2 207 mmHg (85-104) H 10/07/16 12:17 ABG HCO3 31.6 mEQ/L (21-27) H 10/07/16 12:17 ABG Total CO2 33.4 mEq/L (20-26) H 10/07/16 12:17 ABG O2 Saturation 100 % (95-98) H 10/07/16 12:17 ABG Base Excess 3.7 mEq/L (-2.0 to 3.0) H 10/07/16 12:17 Carbon Dioxide 33 mEq/L (19-29) H 10/11/16 05:30 BUN/Creatinine Ratio 31 (6-26) H 10/11/16 05:30 Glucose 121 mg/dL (70-99) H 10/11/16 05:30 POC Glucose 127 (58-89) H 10/12/16 23:38 Albumin 3.4 g/dL (3.5-5.0) L 10/08/16 03:38 Globulin 4.1 g/dL (2.4-3.5) H 10/08/16 03:38 Albumin/Globulin Ratio 0.8 (1.1-2.2) L 10/08/16 03:38 HDL Cholesterol 67 mg/dL (40-59) H 10/08/16 03:38 Urine Clarity Cloudy (Clear) A 10/07/16 18:00 Urine Ketones 15 mg/dL (Negative) H 10/07/16 18:00 Ur Squamous Epith Cells Many per lpf (None-Few) H 10/07/16 18:00 Coronavirus OC43 (PCR) DETECTED (Not Detect) A 10/08/16 01:59 General appearance: Present: no acute distress - Head Head exam: Present: atraumatic, normal inspection - Eye Eye exam: Present: normal appearance - ENT ENT exam: Present: mucous membranes moist - Respiratory Respiratory exam: Present: decreased breath sounds, prolonged expiratory phase, wheezes - Cardiovascular Cardiovascular exam: Present: RRR - GI/Abdominal GI/Abdominal exam: Present: normal bowel sounds, soft. Absent: tenderness - Extremities Exam Extremities exam: Present: normal inspection. Absent: pedal edema, tenderness - Neurological Exam Neurological exam: Present: alert, oriented X3 - Psychiatric Psychiatric exam: Present: normal affect, normal mood. Absent: agitated, anxious - Skin Skin exam: Present: dry, warm Palliative Quality Palliative Quality: Screen for Code Status: Yes, Screen for Goals of Care: Yes, Screen for Pain: Yes, If Pain Regimen Started, Initiate Bowel Regimen: NA, Screen for Nausea/Vomitting: Yes - Labs CBC & Chem 7: 10/11/16 05:30 10/11/16 05:30 Labs: Laboratory Results - last 24 hr 10/12/16 10/12/16 11:53 23:38 POC Glucose 135 H 127 H - ABG Interpretation ABG results: ABG ABG pH 7.33 pH Units (7.32-7.45) 10/07/16 12:17 ABG pCO2 60 mmHg (35-45) H 10/07/16 12:17 ABG pO2 207 mmHg (85-104) H 10/07/16 12:17 ABG O2 Saturation 100 % (95-98) H 10/07/16 12:17 Consult Discharge Plan - Plan Referrals: Rachel Velez CNP [Primary Care Provider] - 10/15/16 10:00 am
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
[2016-10-13 16:05] VITALS: BP 107/76
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
--- NOTE | 2016-10-13 17:37 | Physician Discharge Referral ---
Home Health/Hosp Referral Info Transfer to: Home Health Attending Provider: Alissa Ramos Provider in Charge Post Discharge: PCP - Diagnosis (1) Acute exacerbation of chronic obstructive airways disease Priority: Primary Status: Acute (2) Acute on chronic respiratory failure with hypoxia Priority: Primary Status: Resolved (3) GERD (gastroesophageal reflux disease) Priority: Secondary Status: Chronic (4) Severe protein-calorie malnutrition Priority: Secondary Status: Chronic (5) Tobacco use disorder Priority: Secondary Status: Chronic (6) Anxiety and depression Priority: Secondary Status: Chronic - Respiratory Orders Oxygen / L per min (3L/min) Smoking Cessation: Smoking cessation has been advised. For more information, call the [place] Tobacco Quit Line at 7-875-TOBI-NOW. - Diet/Nutrition Diet/Nutrition Orders: Cardiac - Activity Activity Orders: Ambulate - Services Needed Following services are medically necessary services: Nursing, Physical Therapy, Occupational Therapy - Transfer Medications Prescriptions: Omeprazole 20 mg PO DAILY #30 tablet. PredniSONE 40 mg PO DAILY #14 tablet Home Medications: Albuterol Sulfate [Albuterol Inhaler] 1 puff IH Q4HR PRN 10/22/15 [History] Tiotropium [Spiriva] 18 mcg IH DAILY 10/22/15 [History] Carisoprodol [Soma] 350 mg PO 1-2XD PRN 10/29/15 [History] Meloxicam [Mobic] 15 mg PO DAILY PRN 10/29/15 [History] Montelukast [Singulair] 10 mg PO DAILY 10/29/15 [History] TraZODone 50 mg PO HS PRN 10/29/15 [History] Albuterol Neb [Proventil Neb] 3 ml IH Q4HR #0 11/06/15 [Rx] Alprazolam [Xanax 1 MG Tablet] 1 mg PO QID #20 10/13/16 [Rx] HYDROcodone/Acet 10/325 mg [[place] 10-325 mg] 1 each PO Q6H PRN #20 10/13/16 [Rx ] Omeprazole 20 mg PO DAILY #30 tablet. 10/13/16 [Rx] Oxygen 3 l NS CONT #0 10/13/16 [Rx] PredniSONE 40 mg PO DAILY #14 tablet 10/13/16 [Rx] Allergies/Adverse Reactions: Allergies ibuprofen Adverse Reaction (Verified 10/07/16 14:02) Gastrointestinal Upset naproxen Adverse Reaction (Verified 10/07/16 14:02) Nausea Certification: Further, I certify that my clinical findings support that this patient is homebound (i.e. absences from home require considerable and taxing effort and are for medical reasons or adventist services or infrequently or short duration when for other reasons) because: Homebound Reason: Patient requires assistance of a person or device to safely leave home, Leaving home requires considerable and taxing effort due to condition, Severity of cardiac or pulmonary status limits activity tolerance Attestation: My signature below is to certify that this patient is under my care and that I, or nurse practitioner, or a physician's commercial escrow assistant working with me, has a face-to -face encounter with this patient.
== END 2016-10-13 19:10 | disposition home health service (06) | DRG 140 ==
LOC: 2NENU 11:55 → EMEROO 11:55 → 2NENU 14:59
PROVIDERS: ADMIT Internal Medicine; ATTEND Internal Medicine

== ENCOUNTER 2016-12-10 14:47 | Inpatient (IN) ==
[2016-12-10] MEDS ORDERED: methylPREDNISolone 125 MG/2 ML VIAL IVP ONE (14:54)
[2016-12-10] MEDS ORDERED: Ipratropium/Albuterol Neb 3 ML IH ONE (14:54)
[2016-12-10] MEDS ORDERED: Ipratropium/Albuterol Neb 3 ML ONE (14:56)
--- NOTE | 2016-12-10 14:57 | Emergency Department Note ---
Disposition Clinical Impression: Acute exacerbation of chronic obstructive airways disease Left lower lobe pneumonia Qualifiers: Pneumonia type: due to unspecified organism Qualified Code(s): J18.1 - Lobar pneumonia, unspecified organism Disposition: Admitted As Inpatient Condition: Fair Referrals: Rachel Velez CNP [Primary Care Provider] - Forms: ED Satisfaction Letter Time of Disposition: 15:41 SOB HPI - General Chief Complaint: ED Shortness of Breath/Dyspnea Stated Complaint: PEÑA Time Seen by Provider: 12/10/16 14:54 Source: patient Mode of arrival: wheelchair Limitations: no limitations Nursing Notes Reviewed: Yes Vital Signs Reviewed: Yes - History of Present Illness 56-year-old COPD or comes with increasing shortness of breath. Patient is oxygen dependent and is wheezing diffusely on arrival. 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 illness Severity: moderate, severe Consistency/Duration: constant Improves with: nothing Worsens with: exertion Known history of: COPD Associated symptoms: Reports: wheezing Treatment prior to arrival: none Cough present: Yes Cough Description: Involuntary Cough Frequency: Intermittent - Related Data Home Medications Medication Instructions Recorded Confirmed Albuterol Sulfate [Albuterol 1 puff IH Q4HR PRN 10/22/15 12/10/16 Inhaler] Tiotropium [Spiriva] 18 mcg IH DAILY 10/22/15 12/10/16 Carisoprodol [Soma] 350 mg PO 1-2XD PRN 10/29/15 12/10/16 Meloxicam [Mobic] 15 mg PO DAILY PRN 10/29/15 12/10/16 Montelukast [Singulair] 10 mg PO DAILY 10/29/15 12/10/16 TraZODone 50 mg PO HS PRN 10/29/15 12/10/16 Budesonide Neb [Pulmicort Neb] 2 ml IH Q4H 12/10/16 12/10/16 Fluticasone Propionate [Flovent 220 mcg IH DAILY 12/10/16 12/10/16 Hfa] Lactose-Reduced Food [Boost] 237 ml PO TID 12/10/16 12/10/16 Previous Rx's Medication Instructions Recorded Albuterol Neb [Proventil Neb] 3 ml IH Q4HR #0 11/06/15 Alprazolam [Xanax 1 MG Tablet] 1 mg PO QID #20 10/13/16 HYDROcodone/Acet 10/325 mg [[place] 1 each PO Q6H PRN #20 10/13/16 10-325 mg] Omeprazole 20 mg PO DAILY #30 tablet. 10/13/16 Oxygen 3 l NS CONT #0 10/13/16 Allergies Allergy/AdvReac Type Severity Reaction Status Date / Time ketorolac [From Toradol] Allergy Hallucinati Verified 12/10/16 16:29 ng ibuprofen AdvReac Gastrointestinal Verified 12/10/16 16:29 Upset naproxen AdvReac Nausea Verified 12/10/16 16:29 All systems ED: reviewed and negative except as stated. Constitutional: Denies: fever, chills, weakness, weight change Eyes: Denies: eye pain, eye discharge, vision change ENT ED: Denies: ear pain, throat pain, dental pain, hearing loss, epistaxis, congestion, dysphagia Cardiovascular: Denies: chest pain, palpitations, dyspnea on exertion, edema, syncope Respiratory: Reports: cough, dyspnea, wheezes. Denies: hemoptysis, stridor Gastrointestinal: Denies: abdominal pain, nausea, vomiting, diarrhea, constipation, hematemesis, melena, hematochezia Genitourinary: Denies: dysuria, frequency, hematuria, discharge Musculoskeletal: Denies: back pain, neck pain, arthralgia, myalgia Integumentary: Denies: rash, abrasion, lesions Neurological: Denies: headache, weakness, numbness, paresthesias, confusion, abnormal gait, vertigo Psychiatric: Denies: anxiety, depression, suicidal thoughts, homicidal thoughts , auditory hallucinations, visual hallucinations Endocrine: Denies: fatigue Hematological/Lymphatic: Denies: easy bleeding, easy bruising Allergic/Immunologic: Denies: facial swelling, urticaria Past Medical History - Past Medical History Medical history: Reports: COPD, other (chronic back pain) Surgical history: Reports: other (Tonsillectomy, cervical cancer, breast biopsy 2) Psychiatric history: Reports: anxiety, depression - Social History Smoking Status: Current every day smoker Smokeless Tobacco Status: No Alcohol use: Reports: none Drug use: Reports: none Physical Exam - General Limitations: no limitations General appearance: alert, in distress (Moderate) - Head Head exam: atraumatic, normocephalic, normal inspection - Eye Eye exam: Present: normal appearance, PERRL, EOMI - ENT ENT exam: normal exam, normal oropharynx, mucous membranes moist - Neck Neck exam: Present: normal inspection, full ROM, trachea midline - Chest Chest inspection: Present: normal inspection, symmetric chest wall rise - Respiratory Respiratory exam: Present: wheezes, accessory muscle use, prolonged expiratory phase - Cardiovascular Cardiovascular exam: Present: regular rate, normal rhythm, normal heart sounds - Abdominal Exam Abdominal exam: Present: soft, Non-Tender. Absent: tenderness, distention, guarding, rebound, rigidity - Extremities Exam Extremities exam: Present: normal inspection, full ROM. Absent: tenderness, pedal edema - Expanded Lower Extremity Exam Neurovascular/Tendon exam: Absent: motor deficit, sensory deficit, tendon deficit Gait: not tested/not observed - Back Exam Back exam: Present: normal inspection, full ROM. Absent: tenderness - Neurological Exam Neurological exam: Present: alert, oriented X3 - Psychiatric Psychiatric exam: Present: normal affect, normal mood - Skin Skin exam: Present: warm, dry, intact, normal color Course - Reevaluation(s) Reevaluation #1: 56-year-old COPD or comes in with increasing shortness of breath and cough. On arrival patient has diffuse wheezes. Workup included chest x-ray which appears to show a left lower lobe pneumonia patient was given breathing treatments, steroids, antibiotics and will require admission. Time: 16:05 - Consultations Consultation #1: Discussed with Dr. Wiggins, it. Time: 16:36 Vital Signs Temperature 98.6 F 12/10/16 14:53 Pulse Rate 115 12/10/16 14:53 Respiratory Rate 28 12/10/16 14:53 Blood Pressure 101/77 12/10/16 14:53 O2 Sat by Pulse Oximetry 83 12/10/16 14:53 Temperature 98.6 F 12/10/16 14:53 Pulse Rate 104 12/10/16 16:15 Respiratory Rate 22 12/10/16 16:15 Blood Pressure 106/69 12/10/16 16:15 O2 Sat by Pulse Oximetry 92 12/10/16 16:15 Oxygen Delivery Oxygen Delivery Nasal Cannula Shortness of Breath/Dyspnea - Lab Data Lab results reviewed: Yes I reviewed the patient's lab results. Result diagrams: 12/10/16 15:15 12/10/16 15:15 Lab Results 12/10/16 12/10/16 12/10/16 Range/Units 15:05 15:15 15:15 WBC 17.5 H (4.3-11.1) K/mcL RBC 4.09 (3.82-4.97) M/mcL Hgb 12.5 (11.5-15.4) g/dL Hct 39.0 (35.3-44.9) % MCV 95.4 (83.0-100.0) fL MCH 30.6 (28.0-33.3) pg MCHC 32.1 (31.6-35.5) g/dL RDW 14.5 (11.5-14.5) % Plt Count 391 (140-400) K/mcL MPV 9.7 (9.4-12.4) fL Immature Gran % 0.5 (0-4) % Seg Neutrophils % 80.8 % Lymphocytes % 10.5 % Monocytes % 7.8 % Eosinophils % 0.2 % Basophils % 0.2 % Neutrophils # 14.1 H (1.6-8.9) K/mcL Lymphocytes # 1.8 (0.6-4.6) K/mcL Monocytes # 1.4 H (0.0-1.3) K/mcL Eosinophils # 0.0 (0.0-0.6) K/mcL Basophils # 0.0 (0.0-0.2) K/mcL ABG pH 7.34 (7.32-7.45) pH Units ABG pCO2 64 H (35-45) mmHg ABG pO2 110 H (85-104) mmHg ABG HCO3 34.5 H (21-27) mEQ/L ABG Total CO2 36.5 H (20-26) mEq/L ABG O2 Saturation 98 (95-98) % ABG Base Excess 6.7 H (-2.0 to 3.0) mEq/L Blood Gas Modality AEROSOL MASK Inspired O2 60 % Sodium 140 (136-145) mEq/L Potassium 3.9 (3.5-4.5) mEq/L Chloride 100 (98-109) mEq/L Carbon Dioxide 30 H (19-29) mEq/L BUN 6 L (7-20) mg/dL Creatinine 0.60 (0.57-1.11) mg/dL Est GFR ( Amer) > 60 (> 60) Est GFR (Non-Af Amer) > 60 (> 60) BUN/Creatinine Ratio 10 (6-26) Glucose 124 H (70-99) mg/dL Calculated Osmolality 289 (280-300) Lactic Acid (0.5-2.2) mmol/L Calcium 9.7 (8.6-10.8) mg/dL Troponin I (0-0.03) ng/mL B-Natriuretic Peptide (0-100) pg/mL 12/10/16 12/10/16 12/10/16 Range/Units 15:15 15:15 15:15 WBC (4.3-11.1) K/mcL RBC (3.82-4.97) M/mcL Hgb (11.5-15.4) g/dL Hct (35.3-44.9) % MCV (83.0-100.0) fL MCH (28.0-33.3) pg MCHC (31.6-35.5) g/dL RDW (11.5-14.5) % Plt Count (140-400) K/mcL MPV (9.4-12.4) fL Immature Gran % (0-4) % Seg Neutrophils % % Lymphocytes % % Monocytes % % Eosinophils % % Basophils % % Neutrophils # (1.6-8.9) K/mcL Lymphocytes # (0.6-4.6) K/mcL Monocytes # (0.0-1.3) K/mcL Eosinophils # (0.0-0.6) K/mcL Basophils # (0.0-0.2) K/mcL ABG pH (7.32-7.45) pH Units ABG pCO2 (35-45) mmHg ABG pO2 (85-104) mmHg ABG HCO3 (21-27) mEQ/L ABG Total CO2 (20-26) mEq/L ABG O2 Saturation (95-98) % ABG Base Excess (-2.0 to 3.0) mEq/L Blood Gas Modality Inspired O2 % Sodium (136-145) mEq/L Potassium (3.5-4.5) mEq/L Chloride (98-109) mEq/L Carbon Dioxide (19-29) mEq/L BUN (7-20) mg/dL Creatinine (0.57-1.11) mg/dL Est GFR ( Amer) (> 60) Est GFR (Non-Af Amer) (> 60) BUN/Creatinine Ratio (6-26) Glucose (70-99) mg/dL Calculated Osmolality (280-300) Lactic Acid 1.1 (0.5-2.2) mmol/L Calcium (8.6-10.8) mg/dL Troponin I 0.00 (0-0.03) ng/mL B-Natriuretic Peptide 19 (0-100) pg/mL - Radiology Data Radiology results reviewed: Yes I reviewed the patient's radiology results. Chest X-Ray 12/10/16 14:54 IMPRESSION: Possible developing left lower lobe pneumonia D/ / 12/10/2016 15:23:40 Dylan Riggs MD / [facility] Interpreting Provider: Dylan Riggs MD - EKG Data EKG attestation: Yes I reviewed and interpreted this EKG. EKG shows normal: Reports: sinus rhythm Rate: Reports: tachycardia Rhythm: Reports: NSR When compared to previous EKG there are: no significant changes (10/29/2015) Interpretation: Reports: no acute changes
[2016-12-10 15:12] LABS: ABG Base Excess 6.7 mEq/L (-2.0 to 3.0); ABG HCO3 34.5 mEQ/L (21-27); ABG Oxygen Saturation 98 % (95-98); ABG PCO2 64 mmHg (35-45); ABG PH 7.34 pH Units (7.32-7.45); ABG PO2 110 mmHg (85-104); ABG TCO2 36.5 mEq/L (20-26); Blood Gas FiO2 60 %
[2016-12-10 15:26] LABS: Basophils % 0.2 %; Eosinophils % 0.2 %; Hemoglobin 12.5 g/dL (11.5-15.4); Immature Granulocytes % 0.5 % (0-4); Lymphocytes # 1.8 K/mcL (0.6-4.6); Lymphocytes % 10.5 %; Mean Corpuscular HGB Conc 32.1 g/dL (31.6-35.5); Mean Corpuscular Hemoglobin 30.6 pg (28.0-33.3); Mean Corpuscular Volume 95.4 fL (83.0-100.0); Mean Platelet Volume 9.7 fL (9.4-12.4); Monocytes # 1.4 K/mcL (0.0-1.3); Monocytes % 7.8 %; Neutrophils # 14.1 K/mcL (1.6-8.9); Platelet Count 391 K/mcL (140-400); Red Blood Count 4.09 M/mcL (3.82-4.97); Red Cell Distribution Width 14.5 % (11.5-14.5); Segmented Neutrophils % 80.8 %
[2016-12-10 15:38] LABS: BUN/Creatinine Ratio 10 (6-26); Blood Urea Nitrogen 6 mg/dL (7-20); Calcium 9.7 mg/dL (8.6-10.8); Carbon Dioxide 30 mEq/L (19-29); Chloride 100 mEq/L (98-109); Glucose 124 mg/dL (70-99); Osmolality,Calculated 289 (280-300); Potassium 3.9 mEq/L (3.5-4.5); Sodium 140 mEq/L (136-145); eGFR For African Americans > 60 (> 60); eGFR For Non-African Americans > 60 (> 60)
[2016-12-10] MEDS ORDERED: Azithromycin 500 MG in D5% in Water 250 ML IVPB ONE (15:38)
[2016-12-10] MEDS ORDERED: 0.9 % Sodium Chloride 1,000 ML IVC ONE (16:05)
[2016-12-10] MEDS ORDERED: 0.9 % Sodium Chloride 250 ML IVC ONE (16:06)
[2016-12-10] MEDS ORDERED: Acetaminophen 325 MG TABLET PO PRN (18:48)
[2016-12-10] MEDS ORDERED: Ondansetron 4 MG/2 ML VIAL IVP PRN (18:48)
[2016-12-10] MEDS ORDERED: *HR* Morphine 2 MG/ML SYRINGE IVP PRN (18:48)
[2016-12-10] MEDS ORDERED: Naloxone 0.4 MG/ML INJ IVP PRN (18:48)
[2016-12-10] MEDS ORDERED: Albuterol 2.5 MG/3 ML NEBULIZER IH PRN (18:55)
--- NOTE | 2016-12-10 19:23 | Event Note ---
Date of Encounter: 12/10/16 Time of Encounter: 19:23 Patient Coreyi examined with nurse practitioner. Agree with that assessment and plan.
[2016-12-10] MEDS ORDERED: Ipratropium/Albuterol Neb 3 ML IH SCH ×2 (19:30→23:00)
[2016-12-10] MEDS ORDERED: traZODone 50 MG TABLET PO PRN (19:32)
--- NOTE | 2016-12-10 19:48 | Internal Med History&Physical ---
Date of Encounter: 12/10/16 Time of Encounter: 19:42 Assessment and Plan (1) Acute exacerbation of chronic obstructive airways disease Current visit: Yes Status: Acute 1 patient has been expressing increasing shortness of breath with hypoxia. She was scattered wheezes throughout lung ruelas. We will continue with oxygen titrated to maintain the SPO2 greater than 92% 2 continue bronchodilators 3 IV steroids to taper 4 encourage patient to stop smoking (2) Left lower lobe pneumonia Current visit: Yes Status: Acute 1 patient has been experiencing increasing shortness of breath hypoxia fever elevated white count chest x-ray suggestive of pneumonia. Blood cultures have been obtained will obtain sputum culture 2 patient's had a recent hospitalization we will cover for HCAP placed on Zosyn 3 oxygen as needed to maintain SPO 2 g 92% 4 bronchodilators Qualifiers: Pneumonia type: due to unspecified organism Qualified Code(s): J18.1 - Lobar pneumonia, unspecified organism (3) Acute on chronic respiratory failure with hypoxia Current visit: Yes Status: Acute 1 upon presentation in the hospital patient's oxygen saturation was 83% improvement with oxygen bronchodilators. We will continue the oxygen titrating maintain SPO2 greater than 92% 2 continue with bronchodilators (4) Anxiety and depression Current visit: No Status: Chronic 1 she has history of anxiety/depression we will continue with home medications (5) Severe protein-calorie malnutrition Current visit: No Status: Chronic 1 we will consult dietary for supplementation (6) Tobacco use disorder Current visit: No Status: Chronic 1 encouraged patient to stop smoking her long discussion concerning the benefits of smoking cessation patient states that she is trying however she is not interested in any nicotine patches at this time (7) DVT prophylaxis Current visit: No Status: Acute 1 heparin subcutaneous Internal Medicine - H&P: HPI Chief complaint: SOB Admitted From: Emergency Dept Plans for Post Hospital Care: Home History of present illness: Ms. Sharma is a 56 year old female past medical history of COPD oxygen dependent anxiety chronic back pain. Patient has been experiencing increasing shortness of breath since Thursday. She states she has been unable to perform her ADLs has required increased oxygen supplementation. She will breath has not been relieved with the use of bronchodilators or oxygen. She also has been experiencing a productive cough with brown sputum and left-sided rib pain during coughing which seems to be chronic. She does admit to having fevers at 102 over the past 3 days she had increased fatigue and anorexia. She continues to smoke half a pack a day however has not been able to smoke due to shortness of breath. She presented to the ER with above complaints. Upon presentation patient's oxygen saturation was 83% she was tachycardic. According to ER records lab work did reveal WBC is 17.5 ABG with pH 7.34 PCO's 264 PO2 110 bicarbonate 34.5-98 base excess 6.7. Chemistry was unremarkable lactate was 1.1 troponin was 0. Chest x-ray with possible left lower lobe infiltrate. Blood cultures were obtained patient was given azithromycin and Rocephin IV as well as Solu-Medrol and breathing treatments. She was admitted for further workup and evaluation. Presently patient does not appear to be restricted distress she denies any chest pain. Upon auscultation patient's lungs with scattered wheezes throughout heart sounds are regular with S1-S2 no rubs gallops murmurs clicks noted. She is on 4 L nasal cannula at this time. Patient was admitted to this facility last month with COPD exacerbation and was discharged home with home health. We did discuss CODE STATUS patient requesting to continue to be full code. We also had a long discussion concerning smoking cessation offered patient a nicotine patch which patient declined at this time. I reviewed this case with Dr. Wiggins who agrees with plan Past Med Surg Social Fam HX - Past Medical History Medical history: COPD, other Psychiatric history: anxiety, depression - Past Surgical History Surgical History: other - Social History Smoking Status: Current every day smoker Smokeless Tobacco Status: No Alcohol use: none Drug use: none - Family History Mother Living Status: Hx Family Respiratory Disorders: Yes Father Living Status: Hx Family Cardiac Disorders: Yes (heart valve surgery) Hx Family Respiratory Disorders: Yes Internal Medicine - H&P: Meds Albuterol Sulfate [Albuterol Inhaler] 1 puff IH Q4HR PRN 10/22/15 [History] Tiotropium [Spiriva] 18 mcg IH DAILY 10/22/15 [History] Carisoprodol [Soma] 350 mg PO 1-2XD PRN 10/29/15 [History] Meloxicam [Mobic] 15 mg PO DAILY PRN 10/29/15 [History] Montelukast [Singulair] 10 mg PO DAILY 10/29/15 [History] TraZODone 50 mg PO HS PRN 10/29/15 [History] Albuterol Neb [Proventil Neb] 3 ml IH Q4HR #0 11/06/15 [Rx] Alprazolam [Xanax 1 MG Tablet] 1 mg PO QID #20 10/13/16 [Rx] HYDROcodone/Acet 10/325 mg [[place] 10-325 mg] 1 each PO Q6H PRN #20 10/13/16 [Rx ] Omeprazole 20 mg PO DAILY #30 tablet. 10/13/16 [Rx] Oxygen 3 l NS CONT #0 10/13/16 [Rx] Budesonide Neb [Pulmicort Neb] 2 ml IH Q4H 12/10/16 [History] Fluticasone Propionate [Flovent Hfa] 220 mcg IH DAILY 12/10/16 [History] Lactose-Reduced Food [Boost] 237 ml PO TID 12/10/16 [History] Allergies ketorolac [From Toradol] Allergy (Verified 12/10/16 16:29) Hallucinating ibuprofen Adverse Reaction (Verified 12/10/16 16:29) Gastrointestinal Upset naproxen Adverse Reaction (Verified 12/10/16 16:29) Nausea All Systems PM: A 10-system review of systems was performed and is negative for pertinent findings except as documented above in the HPI. - Constitutional Constitutional: anorexia, fatigue - Cardiovascular Cardiovascular ROS IM: dyspnea, dyspnea on exertion - Respiratory Respiratory: cough, dyspnea on exertion, wheezing, pain with cough - Gastrointestinal Gastrointestinal: no abdominal pain, no diarrhea, no hematemesis, no hematochezia, no melena, no nausea, no vomiting - Genitourinary Genitourinary: no change in urinary stream, no dysuria, no flank pain, no hematuria - Musculoskeletal Musculoskeletal ROS IM: no numbness, no tingling - Integumentary Integumentary IM: no rash, no unusual bruising - Neurological Neurological ROS: no confusion, no convulsions, no focal weakness, no numbness, no tingling, no tremor(s) - Constitutional Vitals: Temp Pulse Resp BP Pulse Ox 98.5 F 105 19 101/66 92 12/10/16 17:38 12/10/16 17:38 12/10/16 17:38 12/10/16 17:38 05/03/17 17:38 General appearance: Present: A&O X 3, underweight, answers questions appropriately - Head Head exam: Present: atraumatic, normocephalic - Eye Eye exam: Present: PERRL, conjuntiva pink, sclera anicteric Pupils: Present: PERRL - Neck Neck exam general surgery: Present: supple, trachea midline. Absent: lymphadenopathy - Respiratory Respiratory exam: Present: wheezes. Absent: accessory muscle use, rales, rhonchi - Cardiovascular Cardiovascular exam: Present: RRR, +S1, +S2. Absent: diastolic murmur, gallop, rubs, systolic murmur - GI/Abdominal GI/Abdominal exam: Present: normal bowel sounds, soft, no peritoneal signs. Absent: distended, tenderness - Extremities Exam Extremities exam: Present: warm, radial pulses palpable and symetrical. Absent : calf tenderness, cyanotic, pedal edema - Neurological Exam Neurological exam: Present: CN II-XII intact, oriented X3, no focal deficits. Absent: pronater drift, facial droop, speech deficit - Skin Skin exam: Present: dry, intact Internal Med - H&P Results - Labs CBC & Chem 7: 12/10/16 15:15 12/10/16 15:15 - EKG Data EKG shows normal: sinus rhythm Rate: tachycardia - EKG Data Prior EKG available for review: yes When compared to previous EKG: there is no significant change - Diagnostic Studies Chest x-ray Additional comments: Chest X-Ray 12/10/16 14:54 IMPRESSION: Possible developing left lower lobe pneumonia D/ / 12/10/2016 15:23:40 Dylan Riggs MD / [facility] Interpreting Provider: Dylan Riggs MD
[2016-12-10] MEDS: Budesonide Neb 0.5 MG/2 ML IH SCH (20:05)
[2016-12-10] MEDS: ALPRAZolam 1 MG TABLET PO SCH (21:39)
[2016-12-10] MEDS: Piperacillin/Tazobactam 3.375 GM in D5% in Water (Mini-Bag+) 100 ML IVPB SCH (21:39)
[2016-12-10] MEDS: *HR* HYDROcodone/Acet 5/325 mg TABLET PO PRN (21:39)
[2016-12-10] MEDS: Ipratropium/Albuterol Neb 3 ML IH SCH (23:18)
[2016-12-11] MEDS ORDERED: MethylPREDNISolone 40 MG/ML VIAL IVP SCH
[2016-12-11] MEDS: methylPREDNISolone 125 MG/2 ML VIAL IVP SCH ×5 (00:11→23:14)
[2016-12-11] MEDS: *HR* Morphine 2 MG/ML SYRINGE IVP PRN ×2 (01:00→20:11)
[2016-12-11] MEDS: Piperacillin/Tazobactam 3.375 GM in D5% in Water (Mini-Bag+) 100 ML IVPB SCH ×4 (02:29→23:14)
[2016-12-11 03:22] LABS: Basophils % 0.1 %; Hematocrit 33.5 % (35.3-44.9); Immature Granulocytes % 0.6 % (0-4); Lymphocytes # 0.5 K/mcL (0.6-4.6); Lymphocytes % 4.7 %; Mean Corpuscular HGB Conc 31.9 g/dL (31.6-35.5); Mean Corpuscular Hemoglobin 30.3 pg (28.0-33.3); Mean Corpuscular Volume 94.9 fL (83.0-100.0); Mean Platelet Volume 9.9 fL (9.4-12.4); Monocytes # 0.2 K/mcL (0.0-1.3); Monocytes % 1.8 %; Neutrophils # 8.9 K/mcL (1.6-8.9); Platelet Count 350 K/mcL (140-400); Red Blood Count 3.53 M/mcL (3.82-4.97); Red Cell Distribution Width 14.3 % (11.5-14.5); Segmented Neutrophils % 92.8 %
[2016-12-11 03:33] LABS: Hemoglobin 10.7 g/dL (11.5-15.4)
[2016-12-11 03:39] LABS: BUN/Creatinine Ratio 14 (6-26); Blood Urea Nitrogen 8 mg/dL (7-20); Calcium 9.7 mg/dL (8.6-10.8); Carbon Dioxide 35 mEq/L (19-29); Chloride 100 mEq/L (98-109); Glucose 139 mg/dL (70-99); Osmolality,Calculated 293 (280-300); Potassium 4.6 mEq/L (3.5-4.5); Sodium 141 mEq/L (136-145); eGFR For African Americans > 60 (> 60); eGFR For Non-African Americans > 60 (> 60)
[2016-12-11] MEDS: Ipratropium/Albuterol Neb 3 ML IH SCH ×5 (04:09→20:59)
[2016-12-11] MEDS: *HR* HYDROcodone/Acet 5/325 mg TABLET PO PRN ×2 (04:36→23:13)
[2016-12-11] MEDS: *HR* Heparin 5,000 UNIT/ML VIAL SQ SCH ×2 (04:37→17:11)
[2016-12-11] MEDS ORDERED: *HR* Enoxaparin 40 MG/0.4 ML SYRINGE SQ SCH ×2 (06:00)
[2016-12-11] MEDS: Budesonide Neb 0.5 MG/2 ML IH SCH ×2 (07:52→07:53)
[2016-12-11] MEDS: Tiotropium 18 MCG inhalation IH SCH (07:57)
[2016-12-11] MEDS: ALPRAZolam 1 MG TABLET PO SCH ×4 (08:30→20:10)
[2016-12-11] MEDS ORDERED: Azithromycin 500 MG in D5% in Water 250 ML IVPB SCH (09:00)
[2016-12-11] MEDS: Fluticasone Propionate Nasal 50 MCG/SPRAY BOTTLE NS SCH (09:53)
--- NOTE | 2016-12-11 09:56 | Internal Med Progress Note ---
Date of Encounter: 12/11/16 Time of Encounter: 09:20 - Assessment and plan (1) COPD exacerbation Current Visit: Yes Status: Acute Assessment and plan: Continues to have some dyspnea and severe cough. Continue IV steroids, scheduled bronchodilators and supplemental oxygen. Continue other home medications including inhaled corticosteroids. Send nasal swab for influenza antigen, viral serology. Patient admits to beginning to smoke in the last few days to weeks. Continue supportive care. Patient is known to our service with frequent hospitalizations with similar complaints, often with prolonged stay. (2) Pneumonia Current Visit: Yes Status: Acute Assessment and plan: Chest x-ray suggestive of left lower lobe pneumonia. Continue IV antibiotics and supportive care. Follow-up blood cultures. Qualifiers: Pneumonia type: due to unspecified organism Laterality: left Lung location: lower lobe of lung Qualified Code(s): J18.1 - Lobar pneumonia, unspecified organism (3) Anxiety and depression Current Visit: Yes Status: Chronic (4) Tobacco use disorder Current Visit: Yes Status: Chronic Assessment and plan: Smoking cessation counseling done, patient does understand the risks of smoking given her underlying severe COPD. Continue nicotine transdermal patch. (5) Severe protein-calorie malnutrition Current Visit: Yes Status: Chronic - Subjective Interval history: Reports shortness of breath and hacking cough; no fever/chills; left lower chest and rib pain, worse with movements; - Constitutional Vitals: Temp Pulse Resp BP Pulse Ox 98.1 F 90 18 106/56 90 12/11/16 07:31 12/11/16 07:31 12/11/16 07:52 12/11/16 07:31 12/11/16 08:00 General appearance: Present: cachectic, A&O X 3, answers questions appropriately - Respiratory Respiratory exam: Present: rhonchi (coarse breath sounds B/L with diffuse rhonchi). Absent: accessory muscle use, rales, wheezes - Cardiovascular Cardiovascular exam: Present: RRR, +S1, +S2. Absent: diastolic murmur, gallop, rubs, systolic murmur - GI/Abdominal GI/Abdominal exam: Present: normal bowel sounds, soft, no peritoneal signs. Absent: distended, tenderness - Extremities Exam Extremities exam: Present: full ROM, warm, radial pulses palpable and symetrical. Absent: calf tenderness, cyanotic, pedal edema Internal Medicine: Result - Labs CBC & Chem 7: 12/11/16 03:00 12/11/16 03:00 Labs: Short CBC 12/11/16 Range/Units 03:00 WBC 9.6 (4.3-11.1) K/mcL Hgb 10.7 L D (11.5-15.4) g/dL Hct 33.5 L (35.3-44.9) % Plt Count 350 (140-400) K/mcL Neutrophils # 8.9 (1.6-8.9) K/mcL BMP 12/11/16 03:00 Sodium 141 Potassium 4.6 H Chloride 100 Carbon Dioxide 35 H BUN 8 Creatinine 0.57 Glucose 139 H Calcium 9.7 - ABG Interpretation ABG results: ABG ABG pH 7.34 pH Units (7.32-7.45) 12/10/16 15:05 ABG pCO2 64 mmHg (35-45) H 12/10/16 15:05 ABG pO2 110 mmHg (85-104) H 12/10/16 15:05 ABG O2 Saturation 98 % (95-98) 12/10/16 15:05 Consult Discharge Plan - Plan Referrals: Rachel Velez, J[employer] TECHNICAL ARCHITECT [Primary Care Provider] - 12/22/16 1:00 pm (Please follow up as schedule...)
[2016-12-11 10:14] LABS: Adenovirus Not Detected (Not Detect); Bordetella Pertussis Not Detected (Not Detect); Chlamydophila pneumoniae Not Detected (Not Detect); Coronavirus 229E Not Detected (Not Detect); Coronavirus HKU1 Not Detected (Not Detect); Coronavirus NL63 Not Detected (Not Detect); Coronavirus OC43 Not Detected (Not Detect); Human Metapneumovirus Not Detected (Not Detect); Human Rhinovirus/Enterovirus ***DETECTED*** (Not Detect); Influenza A Subtype 2009 H1 Not Detected (Not Detect); Influenza A Untypeable Not Detected (Not Detect); Influenza B Not Detected (Not Detect); Mycoplasma pneumoniae Not Detected (Not Detect); Parainfluenza Virus 1 Not Detected (Not Detect); Parainfluenza Virus 2 Not Detected (Not Detect); Parainfluenza Virus 3 Not Detected (Not Detect); Parainfluenza Virus 4 Not Detected (Not Detect); Respiratory Syncytial Virus Not Detected (Not Detect)
--- NOTE | 2016-12-11 10:32 | Electrocardiograph Report ---
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
[2016-12-11] MEDS: Budesonide Neb 0.25 MG/2 ML IH SCH (20:59)
[2016-12-12] MEDS: Ipratropium/Albuterol Neb 3 ML IH SCH ×7 (00:14→23:49)
[2016-12-12] MEDS: *HR* Morphine 2 MG/ML SYRINGE IVP PRN ×2 (05:31→21:57)
[2016-12-12] MEDS: methylPREDNISolone 125 MG/2 ML VIAL IVP SCH ×3 (05:31→17:32)
[2016-12-12] MEDS: *HR* Heparin 5,000 UNIT/ML VIAL SQ SCH ×2 (06:00→17:32)
[2016-12-12] MEDS: Budesonide Neb 0.25 MG/2 ML IH SCH ×2 (07:33→21:27)
[2016-12-12] MEDS: Tiotropium 18 MCG inhalation IH SCH (07:36)
[2016-12-12] MEDS: Piperacillin/Tazobactam 3.375 GM in D5% in Water (Mini-Bag+) 100 ML IVPB SCH (08:51)
[2016-12-12] MEDS: Fluticasone Propionate Nasal 50 MCG/SPRAY BOTTLE NS SCH (08:51)
[2016-12-12] MEDS: ALPRAZolam 1 MG TABLET PO SCH ×4 (08:52→21:57)
--- NOTE | 2016-12-12 10:03 | Internal Med Progress Note ---
Date of Encounter: 12/12/16 Time of Encounter: 10:02 - Assessment and plan (1) COPD exacerbation Current Visit: Yes Status: Acute Assessment and plan: Improving. Continue IV steroids, scheduled bronchodilators and supplemental oxygen. Continues to require 4-4.5 L/m oxygen. Start when necessary benzonatate for cough. Continue other home medications including inhaled corticosteroids. Viral serology positive for entero/rhinovirus. Blood cultures remain negative so far. Continue supportive care. Patient is known to our service with frequent hospitalizations with similar complaints, often with prolonged stay. Physical therapy evaluation noted, recommend placement in extended care facility. Patient has not been agreeable to this in the past. member services coordinator consult. (2) Pneumonia Current Visit: Yes Status: Acute Assessment and plan: Chest x-ray suggestive of left lower lobe pneumonia. We will change antibiotics to IV doxycycline and supportive care. Blood cultures remained negative so far. Qualifiers: Pneumonia type: due to unspecified organism Laterality: left Lung location: lower lobe of lung Qualified Code(s): J18.1 - Lobar pneumonia, unspecified organism (3) Anxiety and depression Current Visit: Yes Status: Chronic (4) Tobacco use disorder Current Visit: Yes Status: Chronic Assessment and plan: Continue nicotine transdermal patch. (5) Severe protein-calorie malnutrition Current Visit: Yes Status: Chronic - Subjective Interval history: Reports left-sided rib pain, now also involving left abdomen, and cough; no fever/chills; refused PT evaluation yesterday as she was sleepy, agreeable today ; - Constitutional Vitals: Temp Pulse Resp BP Pulse Ox 96.8 F L 65 16 115/70 99 12/12/16 07:39 12/12/16 07:39 12/12/16 07:39 12/12/16 07:39 12/12/16 07:39 General appearance: Present: cachectic, A&O X 3, answers questions appropriately - Respiratory Respiratory exam: Present: CTAB (improving rhonchi B/L). Absent: accessory muscle use, rales, rhonchi, wheezes - Cardiovascular Cardiovascular exam: Present: RRR, +S1, +S2. Absent: diastolic murmur, gallop, rubs, systolic murmur - GI/Abdominal GI/Abdominal exam: Present: normal bowel sounds, soft, no peritoneal signs. Absent: distended, tenderness - Extremities Exam Extremities exam: Present: full ROM, warm, radial pulses palpable and symetrical. Absent: calf tenderness, cyanotic, pedal edema Internal Medicine: Result - Labs CBC & Chem 7: 12/11/16 03:00 12/11/16 03:00 - ABG Interpretation ABG results: ABG ABG pH 7.34 pH Units (7.32-7.45) 12/10/16 15:05 ABG pCO2 64 mmHg (35-45) H 12/10/16 15:05 ABG pO2 110 mmHg (85-104) H 12/10/16 15:05 ABG O2 Saturation 98 % (95-98) 12/10/16 15:05 Consult Discharge Plan - Plan Referrals: Rachel Velez FIELD REPRESENTATIVE/HEALTH EDUCATION [Primary Care Provider] - 12/22/16 1:00 pm (Please follow up as schedule...)
[2016-12-12] MEDS ORDERED: Benzonatate 100 MG CAPSULE PO PRN (10:10)
[2016-12-12] MEDS: Sennosides/Docusate Sodium TABLET PO SCH ×2 (11:48→21:57)
[2016-12-12] MEDS: *HR* HYDROcodone/Acet 5/325 mg TABLET PO PRN (13:23)
[2016-12-12] MEDS: Doxycycline 100 MG in 0.9 % Sodium Chloride Mini Bag 100 ML IVPB SCH (17:32)
[2016-12-13] MEDS: methylPREDNISolone 125 MG/2 ML VIAL IVP SCH ×4 (00:08→18:23)
[2016-12-13] MEDS: *HR* HYDROcodone/Acet 5/325 mg TABLET PO PRN ×3 (02:53→16:06)
[2016-12-13] MEDS: Ipratropium/Albuterol Neb 3 ML IH SCH ×5 (03:49→19:43)
[2016-12-13] MEDS: Doxycycline 100 MG in 0.9 % Sodium Chloride Mini Bag 100 ML IVPB SCH ×2 (06:00→18:56)
[2016-12-13] MEDS: *HR* Morphine 2 MG/ML SYRINGE IVP PRN ×2 (06:02→22:28)
[2016-12-13] MEDS: *HR* Heparin 5,000 UNIT/ML VIAL SQ SCH ×2 (06:14→16:08)
--- NOTE | 2016-12-13 08:36 | Internal Med Progress Note ---
Date of Encounter: 12/13/16 Time of Encounter: 08:35 - Assessment and plan (1) Thrush, oral Current Visit: Yes Status: Acute Assessment and plan: Likely secondary to use of steroids. Start nystatin swish and swallow and monitor. (2) COPD exacerbation Current Visit: Yes Status: Acute Assessment and plan: Improving. Continue IV steroids, taper down as tolerated. Continue scheduled bronchodilators and supplemental oxygen. Continues to require 4 L/m oxygen. Continue when necessary benzonatate for cough. Continue other home medications including inhaled corticosteroids. Viral serology positive for entero/ rhinovirus. Blood cultures remain negative so far. Continue supportive care. Patient continues to report left-sided chest and rib pain. Left rib x-ray done and reviewed, no evidence of rib fracture, persistent left basal opacity. Start incentive spirometry, pain control with when necessary Percocet. Physical therapy evaluation noted, recommend placement in extended care facility. Discussed this with patient, who declines placement at this time. (3) Pneumonia Current Visit: Yes Status: Acute Assessment and plan: Chest x-ray suggestive of left lower lobe pneumonia. Continue IV doxycycline and supportive care. Blood cultures remained negative so far. Qualifiers: Pneumonia type: due to unspecified organism Laterality: left Lung location: lower lobe of lung Qualified Code(s): J18.1 - Lobar pneumonia, unspecified organism (4) Anxiety and depression Current Visit: Yes Status: Chronic (5) Tobacco use disorder Current Visit: Yes Status: Chronic Assessment and plan: Continue nicotine transdermal patch. (6) Severe protein-calorie malnutrition Current Visit: Yes Status: Chronic - Subjective Interval history: Improving overall but continues to report severe left-sided rib pain, radiating to her sternum; continues to have hacking cough, but slightly better; reports whitish spots in her mouth, concerning for thrush; - Constitutional Vitals: Temp Pulse Resp BP Pulse Ox 97.9 F 78 16 132/73 96 12/13/16 07:42 12/13/16 07:42 12/13/16 07:42 12/13/16 07:42 12/13/16 07:42 General appearance: Present: cachectic, A&O X 3, answers questions appropriately - ENT ENT exam: Present: normal oropharynx (whitish spots on erythematous base, over B /L buccal mucosa) - Respiratory Respiratory exam: Present: CTAB (coarse breath sounds B/L, improved rhonchi). Absent: accessory muscle use, rales, rhonchi, wheezes - Cardiovascular Cardiovascular exam: Present: RRR, +S1, +S2. Absent: diastolic murmur, gallop, rubs, systolic murmur - GI/Abdominal GI/Abdominal exam: Present: normal bowel sounds, soft, no peritoneal signs. Absent: distended, tenderness - Extremities Exam Extremities exam: Present: full ROM, warm, radial pulses palpable and symetrical. Absent: calf tenderness, cyanotic, pedal edema Internal Medicine: Result - Labs CBC & Chem 7: 12/11/16 03:00 12/11/16 03:00 - ABG Interpretation ABG results: ABG ABG pH 7.34 pH Units (7.32-7.45) 12/10/16 15:05 ABG pCO2 64 mmHg (35-45) H 12/10/16 15:05 ABG pO2 110 mmHg (85-104) H 12/10/16 15:05 ABG O2 Saturation 98 % (95-98) 12/10/16 15:05 Consult Discharge Plan - Plan Referrals: Rachel Velez, [facility] [employer] [facility] [Primary Care Provider] - 12/22/16 1:00 pm (Please follow up as schedule...)
[2016-12-13] MEDS: Budesonide Neb 0.25 MG/2 ML IH SCH ×2 (08:37→19:41)
[2016-12-13] MEDS: Tiotropium 18 MCG inhalation IH SCH (08:37)
[2016-12-13] MEDS: Sennosides/Docusate Sodium TABLET PO SCH ×2 (10:01→22:28)
[2016-12-13] MEDS: Nystatin SUSP 5 ML UD.LIQ PO SCH ×4 (10:01→22:28)
[2016-12-13] MEDS: ALPRAZolam 1 MG TABLET PO SCH ×4 (10:02→22:28)
[2016-12-13] MEDS: Fluticasone Propionate Nasal 50 MCG/SPRAY BOTTLE NS SCH (10:07)
[2016-12-14] MEDS: Ipratropium/Albuterol Neb 3 ML IH SCH ×7 (00:20→23:18)
[2016-12-14] MEDS: methylPREDNISolone 125 MG/2 ML VIAL IVP SCH ×2 (00:49→05:26)
[2016-12-14] MEDS: Doxycycline 100 MG in 0.9 % Sodium Chloride Mini Bag 100 ML IVPB SCH ×2 (05:25→17:16)
[2016-12-14] MEDS: *HR* Heparin 5,000 UNIT/ML VIAL SQ SCH ×2 (05:26→17:59)
[2016-12-14] MEDS: Budesonide Neb 0.25 MG/2 ML IH SCH ×2 (07:50→19:36)
[2016-12-14] MEDS: Tiotropium 18 MCG inhalation IH SCH (07:53)
[2016-12-14] MEDS: Sennosides/Docusate Sodium TABLET PO SCH ×2 (08:02→20:54)
[2016-12-14] MEDS: Nystatin SUSP 5 ML UD.LIQ PO SCH ×4 (08:03→20:53)
[2016-12-14] MEDS: Fluticasone Propionate Nasal 50 MCG/SPRAY BOTTLE NS SCH (08:03)
[2016-12-14] MEDS: ALPRAZolam 1 MG TABLET PO SCH ×4 (08:03→20:54)
[2016-12-14] MEDS: *HR* HYDROcodone/Acet 5/325 mg TABLET PO PRN ×3 (08:20→18:39)
--- NOTE | 2016-12-14 09:16 | Internal Med Progress Note ---
Date of Encounter: 12/14/16 Time of Encounter: 09:12 - Assessment and plan (1) Thrush, oral Current Visit: Yes Status: Acute Assessment and plan: Likely secondary to use of steroids. Improving. Continue nystatin swish and swallow and monitor. (2) COPD exacerbation Current Visit: Yes Status: Acute Assessment and plan: Improving. Continue IV steroids, taper down as tolerated. Continue scheduled bronchodilators and supplemental oxygen. Continues to require 3.5 L/m oxygen. Continue when necessary benzonatate for cough. Continue other home medications including inhaled corticosteroids. Hold Spiriva and Flonase nasal spray; Viral serology positive for entero/rhinovirus. Blood cultures remain negative so far. Continue supportive care. Patient continues to report left-sided chest and rib pain. Left rib x-ray done and reviewed, no evidence of rib fracture, persistent left basal opacity. Start incentive spirometry, pain control with when necessary Percocet. Physical therapy evaluation noted, recommend placement in extended care facility. Discussed this with patient, who declines placement at this time. (3) Pneumonia Current Visit: Yes Status: Acute Assessment and plan: Chest x-ray suggestive of left lower lobe pneumonia. Continue IV doxycycline and supportive care. Blood cultures remained negative so far. Qualifiers: Pneumonia type: due to unspecified organism Laterality: left Lung location: lower lobe of lung Qualified Code(s): J18.1 - Lobar pneumonia, unspecified organism (4) Anxiety and depression Current Visit: Yes Status: Chronic (5) Tobacco use disorder Current Visit: Yes Status: Chronic (6) Severe protein-calorie malnutrition Current Visit: Yes Status: Chronic - Subjective Interval history: Improves each day; breathing better; continues to have cough, dry and hacking; asks repetitive questions about her medications; - Constitutional Vitals: Temp Pulse Resp BP Pulse Ox 98.4 F 69 24 131/79 95 12/14/16 07:25 12/14/16 07:25 12/14/16 07:50 12/14/16 07:25 12/14/16 08:07 General appearance: Present: cachectic, A&O X 3, answers questions appropriately - Respiratory Respiratory exam: Present: CTAB (improving breath sounds B/L). Absent: accessory muscle use, rales, rhonchi, wheezes - Cardiovascular Cardiovascular exam: Present: RRR, +S1, +S2. Absent: diastolic murmur, gallop, rubs, systolic murmur - GI/Abdominal GI/Abdominal exam: Present: normal bowel sounds, soft, no peritoneal signs. Absent: distended, tenderness - Extremities Exam Extremities exam: Present: full ROM, warm, radial pulses palpable and symetrical. Absent: calf tenderness, cyanotic, pedal edema Internal Medicine: Result - Labs CBC & Chem 7: 12/11/16 03:00 12/11/16 03:00 - ABG Interpretation ABG results: ABG ABG pH 7.34 pH Units (7.32-7.45) 12/10/16 15:05 ABG pCO2 64 mmHg (35-45) H 12/10/16 15:05 ABG pO2 110 mmHg (85-104) H 12/10/16 15:05 ABG O2 Saturation 98 % (95-98) 12/10/16 15:05 - Impressions Impressions Ribs w/Chest X-Ray 12/13/16 08:34 IMPRESSION: 1. Persistent left lower lobe airspace consolidation suggesting a left lower lobe pneumonia. Follow-up imaging is recommended to ensure resolution. 2. No acute left rib fracture evident. D/ / 12/13/2016 09:56:23 Paras Giron MD / haydee Interpreting Provider: Paras Giron MD Consult Discharge Plan - Plan Referrals: Rachel Velez APPLICATIONS CONSULTANT [Primary Care Provider] - 12/22/16 1:00 pm (Please follow up as schedule...)
[2016-12-14] MEDS ORDERED: methylPREDNISolone 125 MG/2 ML VIAL IVP SCH (09:30)
[2016-12-14] MEDS: MethylPREDNISolone 40 MG/ML VIAL IVP SCH ×2 (12:22→17:20)
[2016-12-14] MEDS: Benzonatate 100 MG CAPSULE PO SCH ×2 (17:16→20:54)
[2016-12-14] MEDS: *HR* Morphine 2 MG/ML SYRINGE IVP PRN (20:53)
[2016-12-15] MEDS: MethylPREDNISolone 40 MG/ML VIAL IVP SCH (01:22)
[2016-12-15] MEDS: Ipratropium/Albuterol Neb 3 ML IH SCH ×4 (04:08→16:07)
[2016-12-15] MEDS: *HR* Heparin 5,000 UNIT/ML VIAL SQ SCH ×2 (06:06→18:16)
[2016-12-15] MEDS: Doxycycline 100 MG in 0.9 % Sodium Chloride Mini Bag 100 ML IVPB SCH (06:06)
[2016-12-15] MEDS ORDERED: MethylPREDNISolone 40 MG/ML VIAL IVP SCH (07:45)
[2016-12-15] MEDS: ALPRAZolam 1 MG TABLET PO SCH ×3 (08:47→16:07)
[2016-12-15] MEDS: Nystatin SUSP 5 ML UD.LIQ PO SCH ×3 (08:47→16:06)
[2016-12-15] MEDS: Benzonatate 100 MG CAPSULE PO SCH ×2 (08:47→16:07)
[2016-12-15] MEDS: Sennosides/Docusate Sodium TABLET PO SCH (08:47)
[2016-12-15] MEDS: Budesonide Neb 0.25 MG/2 ML IH SCH (10:17)
--- NOTE | 2016-12-15 14:32 | Discharge Summary ---
Date of Encounter: 12/15/16 Time of Encounter: 08:30 - Discharge Diagnosis (1) Thrush, oral Priority: Primary Status: Resolved (2) COPD exacerbation Priority: Primary Status: Acute (3) Pneumonia Priority: Primary Status: Acute Qualifiers: Pneumonia type: due to unspecified organism Laterality: left Lung location: lower lobe of lung Qualified Code(s): J18.1 - Lobar pneumonia, unspecified organism (4) Anxiety and depression Priority: Secondary Status: Chronic (5) Tobacco use disorder Priority: Secondary Status: Chronic (6) Severe protein-calorie malnutrition Priority: Secondary Status: Chronic - Discharge Medications Prescriptions: HYDROcodone/Acet 5/325 mg [Edon 5-325 mg] 1 tab PO Q4HR PRN #20 tablet PRN Reason: Pain Benzonatate [Tessalon] 100 mg PO TID PRN #30 capsule PRN Reason: Cough Doxycycline 100 mg PO BID #20 capsule PredniSONE 40 mg PO DAILY 16 Days Home Medications: Albuterol Sulfate [Albuterol Inhaler] 1 puff IH Q4HR PRN 10/22/15 [History] Tiotropium [Spiriva] 18 mcg IH DAILY 10/22/15 [History] Carisoprodol [Soma] 350 mg PO 1-2XD PRN 10/29/15 [History] Meloxicam [Mobic] 15 mg PO DAILY PRN 10/29/15 [History] Montelukast [Singulair] 10 mg PO DAILY 10/29/15 [History] TraZODone 50 mg PO HS PRN 10/29/15 [History] Albuterol Neb [Proventil Neb] 3 ml IH Q4HR #0 11/06/15 [Rx] Alprazolam [Xanax 1 MG Tablet] 1 mg PO QID #20 10/13/16 [Rx] Omeprazole 20 mg PO DAILY #30 tablet. 10/13/16 [Rx] Budesonide Neb [Pulmicort Neb] 2 ml IH Q4H 12/10/16 [History] Fluticasone Propionate [Flovent Hfa] 220 mcg IH DAILY 12/10/16 [History] Lactose-Reduced Food [Boost] 237 ml PO TID 12/10/16 [History] Benzonatate [Tessalon] 100 mg PO TID PRN #30 capsule 12/15/16 [Rx] Doxycycline 100 mg PO BID #20 capsule 12/15/16 [Rx] HYDROcodone/Acet 5/325 mg [Edon 5-325 mg] 1 tab PO Q4HR PRN #20 tablet [Rx] Oxygen 4 l NS CONT #0 12/15/16 [Rx] PredniSONE 40 mg PO DAILY 16 Days 12/15/16 [Rx] Allergies/Adverse Reactions: Allergies ketorolac [From Toradol] Allergy (Verified 12/10/16 16:29) Hallucinating ibuprofen Adverse Reaction (Verified 12/10/16 16:29) Gastrointestinal Upset naproxen Adverse Reaction (Verified 12/10/16 16:29) Nausea Date of admission: 12/10/16 21:52 Primary care physician: Rachel Velez CNP Consults: 12/11/16 13:34 Consult to Occupational Therapy [CONS] Routine Comment: Evaluate, develop and implement POC Reason for Consult: per pt request Consult to Physical Therapy [CONS] Routine Comment: Evaluate, develop and implement POC Reason for Consult: pt states she has been dizzy at home and falling against the gillis 12/12/16 13:35 Consult to Pageant Director [CONS] Routine Reason for SW Consult: per therapy needs ecf Discharging clinician: Alissa Ramos Anticipated date of discharge: 12/15/16 - Patient Status Disposition: Home Health Service Condition: Fair Functional capacity at discharge: uses cane/walker Overall status at discharge: patient is progressing back to baseline - Discharge Instructions Instructions: Benzonatate (By mouth), Doxycycline (By mouth), Hydrocodone/ Acetaminophen (By mouth), Prednisone (By mouth), Chronic Obstructive Pulmonary Disease (DC), Pneumonia (DC) Follow Up With: Rachel Velez CNP [Primary Care Provider] - 12/22/16 1:00 pm (Please follow up as schedule...) - Diet and Activity Activity: as per physical therapy, wear oxygen at all times (4L/min) Diet: low fat, low cholesterol, low salt diet Hospital course: Ms. Sharma is a 56 year old female with history of severe COPD was admitted with worsening cough and shortness of breath. Patient is well-known to our service due to multiple previous hospitalizations for similar complaints. Patient is noted to be noncompliant with smoking cessation and admits to recently going back to smoking as she has people smoking at home all the time. She was started on IV steroids, scheduled bronchodilators, supplemental oxygen and continued on her other home medications including inhaled corticosteroids. She gradually improved on this regimen. Chest x-ray also showed possible left lower lobe pneumonia and she was started on IV antibiotics. Blood cultures remained negative. Cough and shortness of breath slowly improved but patient has persistent left-sided rib pain, radiating to her sternum, which is likely related to underlying pneumonia and musculoskeletal pain due to hacking cough. Rib x-ray was done which showed no rib fractures. Patient developed some oral thrush likely due to the use of steroids, which improved with nystatin swish and swallow. Physical therapy evaluation was done and recommended placement in extended care facility for continued rehabilitation, however patient declined it after multiple discussions. Patient has baseline anxiety and depression and poor social situation. social services designee was consulted and patient is currently medically stable for discharge. Home oxygen evaluation was completed and she is currently noted to be requiring 4 L/m oxygen via nasal cannula, continuously and she would benefit from portable home oxygen, noted to be ambulatory at home. Time spent discussing smoking cessation with patient: 3 to 10 minutes - Time Spent with Patient Total time spent providing and/or coordinating discharge services: Greater than 30 minutes (50 min) - Constitutional Vitals: Temp Pulse Resp BP Pulse Ox 98.6 F 86 17 132/82 96 12/15/16 11:30 12/15/16 11:30 12/15/16 11:30 12/15/16 11:30 12/15/16 14:18 General appearance: Present: cachectic, A&O X 3 (memory problems as she asks the same set of questions each day), answers questions appropriately - Respiratory Respiratory exam: Present: decreased breath sounds (improved air entry B/L), CTAB. Absent: accessory muscle use, rales, rhonchi, wheezes - Cardiovascular Cardiovascular exam: Present: RRR, +S1, +S2. Absent: diastolic murmur, gallop, rubs, systolic murmur
--- NOTE | 2016-12-15 14:34 | Physician Discharge Referral ---
Home Health/Hosp Referral Info Transfer to: Home Health Attending Provider: Alissa Ramos Provider in Charge Post Discharge: PCP - Diagnosis (1) Thrush, oral Priority: Primary Status: Resolved (2) COPD exacerbation Priority: Primary Status: Acute (3) Pneumonia Priority: Primary Status: Acute (4) Anxiety and depression Priority: Secondary Status: Chronic (5) Tobacco use disorder Priority: Secondary Status: Chronic (6) Severe protein-calorie malnutrition Priority: Secondary Status: Chronic - Respiratory Orders Oxygen / L per min (4L/min via [place]) Smoking Cessation: Smoking cessation has been advised. For more information, call the [place] Tobacco Quit Line at 4-474-WXTN-NOW. - Diet/Nutrition Diet/Nutrition Orders: Cardiac - Activity Activity Orders: Ambulate - Services Needed Following services are medically necessary services: Nursing, Physical Therapy, Occupational Therapy - Transfer Medications Prescriptions: HYDROcodone/Acet 5/325 mg [Malone 5-325 mg] 1 tab PO Q4HR PRN #20 tablet PRN Reason: Pain Benzonatate [Tessalon] 100 mg PO TID PRN #30 capsule PRN Reason: Cough Doxycycline 100 mg PO BID #20 capsule PredniSONE 40 mg PO DAILY 16 Days Home Medications: Albuterol Sulfate [Albuterol Inhaler] 1 puff IH Q4HR PRN 10/22/15 [History] Tiotropium [Spiriva] 18 mcg IH DAILY 10/22/15 [History] Carisoprodol [Soma] 350 mg PO 1-2XD PRN 10/29/15 [History] Meloxicam [Mobic] 15 mg PO DAILY PRN 10/29/15 [History] Montelukast [Singulair] 10 mg PO DAILY 10/29/15 [History] TraZODone 50 mg PO HS PRN 10/29/15 [History] Albuterol Neb [Proventil Neb] 3 ml IH Q4HR #0 11/06/15 [Rx] Alprazolam [Xanax 1 MG Tablet] 1 mg PO QID #20 10/13/16 [Rx] Omeprazole 20 mg PO DAILY #30 tablet. 10/13/16 [Rx] Budesonide Neb [Pulmicort Neb] 2 ml IH Q4H 12/10/16 [History] Fluticasone Propionate [Flovent Hfa] 220 mcg IH DAILY 12/10/16 [History] Lactose-Reduced Food [Boost] 237 ml PO TID 12/10/16 [History] Benzonatate [Tessalon] 100 mg PO TID PRN #30 capsule 12/15/16 [Rx] Doxycycline 100 mg PO BID #20 capsule 12/15/16 [Rx] HYDROcodone/Acet 5/325 mg [Malone 5-325 mg] 1 tab PO Q4HR PRN #20 tablet [Rx] Oxygen 4 l NS CONT #0 12/15/16 [Rx] PredniSONE 40 mg PO DAILY 16 Days 12/15/16 [Rx] Allergies/Adverse Reactions: Allergies ketorolac [From Toradol] Allergy (Verified 12/10/16 16:29) Hallucinating ibuprofen Adverse Reaction (Verified 12/10/16 16:29) Gastrointestinal Upset naproxen Adverse Reaction (Verified 12/10/16 16:29) Nausea Certification: Further, I certify that my clinical findings support that this patient is homebound (i.e. absences from home require considerable and taxing effort and are for medical reasons or orthodox services or infrequently or short duration when for other reasons) because: Homebound Reason: Patient requires assistance of a person or device to safely leave home, Severity of cardiac or pulmonary status limits activity tolerance Attestation: My signature below is to certify that this patient is under my care and that I, or nurse practitioner, or a physician's laboratory chemical assistant working with me, has a face-to -face encounter with this patient.
[2016-12-15 15:18] VITALS: BP 108/70
== END 2016-12-15 18:21 | disposition home health service (06) | DRG 140 ==
LOC: 2ANU 14:47 → EMEROO 14:47 → 2ANU 17:18 → SUATTDRO 21:52
PROVIDERS: ADMIT Hospitalist; ATTEND Internal Medicine

== ENCOUNTER 2017-11-27 15:48 | Inpatient (IN) ==
[2017-11-27] MEDS ORDERED: methylPREDNISolone 125 MG/2 ML VIAL IVP ONE (15:58)
[2017-11-27] MEDS ORDERED: Ipratropium/Albuterol Neb 3 ML ONE (16:00)
[2017-11-27] MEDS ORDERED: 0.9 % Sodium Chloride 1,000 ML IVC ONE (16:04)
[2017-11-27] MEDS: Ipratropium/Albuterol Neb 3 ML IH ONE ×2 (16:06→16:54)
--- NOTE | 2017-11-27 16:07 | Emergency Department Note ---
Disposition Clinical Impression: COPD exacerbation Disposition: Admitted As Inpatient Condition: Good Forms: ED Satisfaction Letter Time of Disposition: 18:47 Altered Mental Status HPI - General Chief Complaint: ED Altered Mental Status Stated Complaint: AMS Time Seen by Provider: 11/27/17 15:58 Source: patient Nursing Notes Reviewed: Yes Vital Signs Reviewed: Yes - History of Present Illness HPI Narrative: Patient has an altered level of consciousness. Family states that this is been going on and off since 3 AM this morning. Recent discharge from [place] for left family states was ARDS. States that she slumped over in the car on the way here. Report increasing respiratory distress. - Related Data Home Medications Medication Instructions Recorded Confirmed Albuterol Sulfate [Albuterol 1 puff IH Q4HR PRN 10/22/15 11/22/17 Inhaler] Tiotropium [Spiriva] 18 mcg IH DAILY 10/22/15 11/22/17 Carisoprodol [Soma] 350 mg PO 1-2XD PRN 10/29/15 11/22/17 Meloxicam [Mobic] 15 mg PO DAILY PRN 10/29/15 11/22/17 Montelukast [Singulair] 10 mg PO DAILY 10/29/15 11/22/17 traZODone [TraZODone] 50 mg PO HS PRN 10/29/15 11/22/17 Budesonide Neb [Pulmicort Neb] 2 ml IH Q4H 12/10/16 11/22/17 Fluticasone Propionate [Flovent 220 mcg IH DAILY 12/10/16 11/22/17 Hfa] Lactose-Reduced Food [Boost] 237 ml PO TID 12/10/16 11/22/17 Previous Rx's Medication Instructions Recorded Albuterol Neb [Proventil Neb] 3 ml IH Q4HR #0 11/06/15 ALPRAZolam [Xanax 1 MG Tablet] 1 mg PO QID #20 10/13/16 Omeprazole 20 mg PO DAILY #30 tablet. 10/13/16 HYDROcodone/Acet 5/325 mg [[place] 1 tab PO Q4HR PRN #20 tablet 12/15/16 5-325 mg] Oxygen 4 l NS CONT #0 12/15/16 Allergies Allergy/AdvReac Type Severity Reaction Status Date / Time ketorolac [From Toradol] Allergy Hallucinati Verified 11/22/17 12:49 ng ibuprofen AdvReac Gastrointestinal Verified 11/22/17 12:49 Upset naproxen AdvReac Nausea Verified 11/22/17 12:49 Limitations: ROS unobtainable due to patients medical condition Past Medical History - Past Medical History Attestation: Yes The following information was validated with the patient. Source: patient Medical history: Reports: cancer, COPD, other Surgical history: Reports: other Psychiatric history: Reports: anxiety, depression - Social History Smoking Status: Current every day smoker Smokeless Tobacco Status: No Alcohol use: Reports: rarely Drug use: Reports: none Physical Exam - General Limitations: altered mental status General appearance: in distress (Respiratory) - Head Head exam: atraumatic, normocephalic, normal inspection - Eye Eye exam: Present: normal appearance, PERRL (Approximately 4 mm bilaterally), EOMI. Absent: scleral icterus - ENT ENT exam: normal exam, normal oropharynx, mucous membranes moist - Neck Neck exam: Present: normal inspection, full ROM, trachea midline - Chest Chest inspection: Present: normal inspection, symmetric chest wall rise. Absent : tenderness - Respiratory Respiratory exam: Present: respiratory distress, other (Rhonchorous throughout) - Cardiovascular Cardiovascular exam: Present: tachycardia - Abdominal Exam Abdominal exam: Present: soft. Absent: distention, rigidity - Extremities Exam Extremities exam: Present: normal inspection, full ROM, normal capillary refill. Absent: tenderness, pedal edema - Back Exam Back exam: Present: normal inspection - Skin Skin exam: Present: warm, dry, intact Course Course Narrative: Female patient brought in by family for altered mental status and respiratory distress. Family by the patient's condition has been like this is 3:30 this morning. Patient is hard to arouse. Unable to understand her verbal response. She is tachypneic and tachycardic. We will start patient on IV fluids get a chest x-ray and get basic lab workup on patient inclusive of a lactate. We will get a head CT as well. Her lung sounds are rhonchorous throughout. - Reevaluation(s) Reevaluation #1: Patient reassessed. She is mentating appropriately at this time. She is requesting [place] for her headache. I do not feel this is reasonable we will provide her with Tylenol. She states she takes this at home for her headaches generally. This is possibly one of the reasons for her altered mental status initially. She did have a positive response to the Narcan. Her chest x-ray showed no signs of consolidation. She does have flattened diaphragms bilaterally. We will admit patient for a COPD exacerbation and resolving altered mental status. Her head CT was normal. The UA is pending the hospitalist has been made aware of this. Time: 17:18 - Consultations Consultation #1: Dr King accepted Pt in stable condition. Time: 17:20 Vital Signs Temperature 98.2 F 11/27/17 15:56 Pulse Rate 103 11/27/17 15:56 Respiratory Rate 8 11/27/17 15:56 Blood Pressure 127/86 11/27/17 15:56 O2 Sat by Pulse Oximetry 96 11/27/17 15:56 Temperature 98.2 F 11/27/17 15:56 Pulse Rate 87 11/27/17 17:53 Respiratory Rate 14 11/27/17 17:53 Blood Pressure 145/72 11/27/17 17:53 O2 Sat by Pulse Oximetry 98 11/27/17 17:53 Oxygen Delivery Oxygen Delivery Nasal Cannula Altered Mental Status - Medical Records Medical records reviewed: Yes I reviewed the patient's medical records. - Lab Data Lab results reviewed: Yes I reviewed the patient's lab results. Result diagrams: 11/27/17 16:00 11/27/17 15:59 Lab Results 11/27/17 11/27/17 11/27/17 Range/Units 15:59 16:00 16:00 WBC 15.3 H (4.3-11.1) K/mcL RBC 5.25 H (3.82-4.97) M/mcL Hgb 16.0 H D (11.5-15.4) g/dL Hct 50.4 H (35.3-44.9) % MCV 96.0 (83.0-100.0) fL MCH 30.5 (28.0-33.3) pg MCHC 31.7 (31.6-35.5) g/dL RDW 15.3 H (11.5-14.5) % Plt Count 298 (140-400) K/mcL MPV 9.9 (9.4-12.4) fL Immature Gran % 0.3 (0-4) % Seg Neutrophils % 81.6 % Lymphocytes % 9.3 % Monocytes % 8.3 % Eosinophils % 0.3 % Basophils % 0.2 % Neutrophils # 12.5 H (1.6-8.9) K/mcL Lymphocytes # 1.4 (0.6-4.6) K/mcL Monocytes # 1.3 (0.0-1.3) K/mcL Eosinophils # 0.1 (0.0-0.6) K/mcL Basophils # 0.0 (0.0-0.2) K/mcL Sodium 139 (136-145) mEq/L Potassium 5.1 (3.5-5.1) mEq/L Chloride 100 (98-107) mEq/L Carbon Dioxide 31 H (23-29) mEq/L BUN 10 (6-20) mg/dL Creatinine 0.46 L (0.60-1.20) mg/dL Est GFR ( Amer) > 60 (> 60) Est GFR (Non-Af Amer) > 60 (> 60) BUN/Creatinine Ratio 22 (6-26) Glucose 110 H (70-105) mg/dL Calculated Osmolality 288 (280-300) Lactic Acid 0.6 (0.5-2.2) mmol/L Calcium 10.0 (8.6-10.3) mg/dL Phosphorus 4.0 (2.7-4.5) mg/dL Magnesium 2.1 (1.6-2.6) mg/dL Total Bilirubin 0.3 (0.3-1.0) mg/dL Direct Bilirubin 0.1 (0.0-0.2) mg/dL Indirect Bilirubin 0.2 (0.0-1.2) mg/dL AST 15 (13-39) Units/L ALT 15 (7-52) Units/L Alkaline Phosphatase 103 (34-104) Units/L Ammonia (16-53) mcmol/L Creatine Kinase 36 (30-223) Units/L Troponin I 0.03 (< 0.04) ng/mL B-Natriuretic Peptide (Less than 100) pg/mL Serum Total Protein 6.9 (6.4-8.9) g/dL Albumin 4.3 (3.5-5.7) g/dL Globulin 2.6 (2.4-3.5) g/dL Albumin/Globulin Ratio 1.7 (1.1-2.2) Lipase 18 (11-82) Units/L Urine Color (Yellow) Urine Clarity (Clear) Urine pH (5.0-8.0) pH Units Ur Specific [place] (1.010-1.025) Urine Protein (Neg-Trace) mg/dL Urine Glucose (UA) (Normal) mg/dL Urine Ketones (Negative) mg/dL Urine Blood (Negative) Urine Nitrite (Negative) Urine Bilirubin (Negative) Urine Urobilinogen (Normal) mg/dL Ur Leukocyte Esterase (Negative) Urine Microscopic RBC (0-3) per hpf Urine Microscopic WBC (0-3) per hpf Ur Squamous Epith Cells (None-Few) per lpf Urine Bacteria (None-Few) per hpf Hyaline Casts (None-Few) per lpf Ur Culture Indicated? (NO) Urine Opiates Screen (Bxqxom=632) ng/mL Ur Barbiturates Screen (Zbrmei=441) ng/mL Ur Phencyclidine Scrn (Cutoff=25) ng/mL Ur Amphetamines Screen (Hfkghk=3929) ng/mL U Benzodiazepines Scrn (Axpzpo=860) ng/mL Urine Cocaine Screen (Cutoff= 300) ng/mL U Marijuana (THC) Screen (Cutoff = 50) ng/mL Ethyl Alcohol < 10 (Less than 10) mg/dL Specimen Rejected 11/27/17 11/27/17 11/27/17 Range/Units 16:00 16:27 16:37 WBC (4.3-11.1) K/mcL RBC (3.82-4.97) M/mcL Hgb (11.5-15.4) g/dL Hct (35.3-44.9) % MCV (83.0-100.0) fL MCH (28.0-33.3) pg MCHC (31.6-35.5) g/dL RDW (11.5-14.5) % Plt Count (140-400) K/mcL MPV (9.4-12.4) fL Immature Gran % (0-4) % Seg Neutrophils % % Lymphocytes % % Monocytes % % Eosinophils % % Basophils % % Neutrophils # (1.6-8.9) K/mcL Lymphocytes # (0.6-4.6) K/mcL Monocytes # (0.0-1.3) K/mcL Eosinophils # (0.0-0.6) K/mcL Basophils # (0.0-0.2) K/mcL Sodium (136-145) mEq/L Potassium (3.5-5.1) mEq/L Chloride (98-107) mEq/L Carbon Dioxide (23-29) mEq/L BUN (6-20) mg/dL Creatinine (0.60-1.20) mg/dL Est GFR ( Amer) (> 60) Est GFR (Non-Af Amer) (> 60) BUN/Creatinine Ratio (6-26) Glucose (70-105) mg/dL Calculated Osmolality (280-300) Lactic Acid (0.5-2.2) mmol/L Calcium (8.6-10.3) mg/dL Phosphorus (2.7-4.5) mg/dL Magnesium (1.6-2.6) mg/dL Total Bilirubin (0.3-1.0) mg/dL Direct Bilirubin (0.0-0.2) mg/dL Indirect Bilirubin (0.0-1.2) mg/dL AST (13-39) Units/L ALT (7-52) Units/L Alkaline Phosphatase (34-104) Units/L Ammonia 37 (16-53) mcmol/L Creatine Kinase (30-223) Units/L Troponin I (< 0.04) ng/mL B-Natriuretic Peptide 65 (Less than 100) pg/mL Serum Total Protein (6.4-8.9) g/dL Albumin (3.5-5.7) g/dL Globulin (2.4-3.5) g/dL Albumin/Globulin Ratio (1.1-2.2) Lipase (11-82) Units/L Urine Color (Yellow) Urine Clarity (Clear) Urine pH (5.0-8.0) pH Units Ur Specific [place] (1.010-1.025) Urine Protein (Neg-Trace) mg/dL Urine Glucose (UA) (Normal) mg/dL Urine Ketones (Negative) mg/dL Urine Blood (Negative) Urine Nitrite (Negative) Urine Bilirubin (Negative) Urine Urobilinogen (Normal) mg/dL Ur Leukocyte Esterase (Negative) Urine Microscopic RBC (0-3) per hpf Urine Microscopic WBC (0-3) per hpf Ur Squamous Epith Cells (None-Few) per lpf Urine Bacteria (None-Few) per hpf Hyaline Casts (None-Few) per lpf Ur Culture Indicated? (NO) Urine Opiates Screen (Nplelr=406) ng/mL Ur Barbiturates Screen (Ojorji=667) ng/mL Ur Phencyclidine Scrn (Cutoff=25) ng/mL Ur Amphetamines Screen (Jdeqsj=5477) ng/mL U Benzodiazepines Scrn (Ijtvsx=317) ng/mL Urine Cocaine Screen (Cutoff= 300) ng/mL U Marijuana (THC) Screen (Cutoff = 50) ng/mL Ethyl Alcohol (Less than 10) mg/dL Specimen Rejected Hemolyzed 11/27/17 11/27/17 Range/Units 17:22 17:22 WBC (4.3-11.1) K/mcL RBC (3.82-4.97) M/mcL Hgb (11.5-15.4) g/dL Hct (35.3-44.9) % MCV (83.0-100.0) fL MCH (28.0-33.3) pg MCHC (31.6-35.5) g/dL RDW (11.5-14.5) % Plt Count (140-400) K/mcL MPV (9.4-12.4) fL Immature Gran % (0-4) % Seg Neutrophils % % Lymphocytes % % Monocytes % % Eosinophils % % Basophils % % Neutrophils # (1.6-8.9) K/mcL Lymphocytes # (0.6-4.6) K/mcL Monocytes # (0.0-1.3) K/mcL Eosinophils # (0.0-0.6) K/mcL Basophils # (0.0-0.2) K/mcL Sodium (136-145) mEq/L Potassium (3.5-5.1) mEq/L Chloride (98-107) mEq/L Carbon Dioxide (23-29) mEq/L BUN (6-20) mg/dL Creatinine (0.60-1.20) mg/dL Est GFR ( Amer) (> 60) Est GFR (Non-Af Amer) (> 60) BUN/Creatinine Ratio (6-26) Glucose (70-105) mg/dL Calculated Osmolality (280-300) Lactic Acid (0.5-2.2) mmol/L Calcium (8.6-10.3) mg/dL Phosphorus (2.7-4.5) mg/dL Magnesium (1.6-2.6) mg/dL Total Bilirubin (0.3-1.0) mg/dL Direct Bilirubin (0.0-0.2) mg/dL Indirect Bilirubin (0.0-1.2) mg/dL AST (13-39) Units/L ALT (7-52) Units/L Alkaline Phosphatase (34-104) Units/L Ammonia (16-53) mcmol/L Creatine Kinase (30-223) Units/L Troponin I (< 0.04) ng/mL B-Natriuretic Peptide (Less than 100) pg/mL Serum Total Protein (6.4-8.9) g/dL Albumin (3.5-5.7) g/dL Globulin (2.4-3.5) g/dL Albumin/Globulin Ratio (1.1-2.2) Lipase (11-82) Units/L Urine Color Yellow (Yellow) Urine Clarity Clear (Clear) Urine pH 6.0 (5.0-8.0) pH Units Ur Specific [place] 1.028 H (1.010-1.025) Urine Protein Trace (Neg-Trace) mg/dL Urine Glucose (UA) Normal (Normal) mg/dL Urine Ketones Trace H (Negative) mg/dL Urine Blood Negative (Negative) Urine Nitrite Negative (Negative) Urine Bilirubin Negative (Negative) Urine Urobilinogen Normal (Normal) mg/dL Ur Leukocyte Esterase Negative (Negative) Urine Microscopic RBC 0-3 (0-3) per hpf Urine Microscopic WBC 0-3 (0-3) per hpf Ur Squamous Epith Cells Many H (None-Few) per lpf Urine Bacteria None Seen (None-Few) per hpf Hyaline Casts None Seen (None-Few) per lpf Ur Culture Indicated? NO (NO) Urine Opiates Screen Positive H (Zhbvup=466) ng/mL Ur Barbiturates Screen Negative (Patmci=711) ng/mL Ur Phencyclidine Scrn Negative (Cutoff=25) ng/mL Ur Amphetamines Screen Negative (Ojpipk=6897) ng/mL U Benzodiazepines Scrn Positive H (Ypcdlc=925) ng/mL Urine Cocaine Screen Negative (Cutoff= 300) ng/mL U Marijuana (THC) Screen Positive H (Cutoff = 50) ng/mL Ethyl Alcohol (Less than 10) mg/dL Specimen Rejected - Radiology Data Radiology results reviewed: Yes I reviewed the patient's radiology results. Chest X-Ray 11/27/17 15:59 IMPRESSION: No acute process. D/ / Dylan Riggs MD / Dylan iRggs MD Interpreting Provider: Dylan Riggs MD Head CT 11/27/17 16:11 IMPRESSION: Stable negative CT brain with no acute intracranial abnormality. D/ / Diane Branch MD / Diane Branch MD Interpreting Provider: Diane Branch MD - EKG Data EKG attestation: Yes I reviewed and interpreted this EKG. EKG results narrative: Sinus tach at a rate of 104. NE interval is 132. QRS duration is 84. QT is 329. QTC is 390. No signs of acute ischemia. No significant change from previous EKG dated 11/22/2017. TPA Checklist - LKW: 3-4.5 hrs Add. Warnings/Precautions Patient/family understanding: The patient/family members have been counseled and understood the risk, benefit , and alternatives of treatment.
--- NOTE | 2017-11-27 16:11 | Emergency Department Note ---
Disposition Clinical Impression: COPD exacerbation Disposition: Still a Patient Forms: ED Satisfaction Letter General Adult HPI - General Chief complaint: ED Altered Mental Status Stated complaint: AMS Time Seen by Provider: 11/27/17 15:58 Source: patient - History of Present Illness Pain Scale: 4 - Related Data Home Medications Medication Instructions Recorded Confirmed Albuterol Sulfate [Albuterol 1 puff IH Q4HR PRN 10/22/15 11/22/17 Inhaler] Tiotropium [Spiriva] 18 mcg IH DAILY 10/22/15 11/22/17 Carisoprodol [Soma] 350 mg PO 1-2XD PRN 10/29/15 11/22/17 Meloxicam [Mobic] 15 mg PO DAILY PRN 10/29/15 11/22/17 Montelukast [Singulair] 10 mg PO DAILY 10/29/15 11/22/17 traZODone [TraZODone] 50 mg PO HS PRN 10/29/15 11/22/17 Budesonide Neb [Pulmicort Neb] 2 ml IH Q4H 12/10/16 11/22/17 Fluticasone Propionate [Flovent 220 mcg IH DAILY 12/10/16 11/22/17 Hfa] Lactose-Reduced Food [Boost] 237 ml PO TID 12/10/16 11/22/17 Previous Rx's Medication Instructions Recorded Albuterol Neb [Proventil Neb] 3 ml IH Q4HR #0 11/06/15 ALPRAZolam [Xanax 1 MG Tablet] 1 mg PO QID #20 10/13/16 Omeprazole 20 mg PO DAILY #30 tablet. 10/13/16 Benzonatate [Tessalon] 100 mg PO TID PRN #30 capsule 12/15/16 HYDROcodone/Acet 5/325 mg [[place] 1 tab PO Q4HR PRN #20 tablet 12/15/16 5-325 mg] Oxygen 4 l NS CONT #0 12/15/16 Guaifenesin/Dm/Pseudoephedrine 1 each PO BID #20 tablet 08/04/17 [Capmist Dm Tablet] Ondansetron HCl [Zofran] 4 mg PO TID #15 tablet 08/04/17 levoFLOXacin [Levaquin] 500 mg PO DAILY #10 tablet 08/04/17 Lactobacillus [Culturelle] 1 each PO BID #6 cap.ediliaink 11/24/17 levoFLOXacin [Levaquin] 500 mg PO DAILY #3 tablet 11/24/17 predniSONE [PredniSONE] 10 mg PO BIDWM #6 tablet 11/24/17 Allergies Allergy/AdvReac Type Severity Reaction Status Date / Time ketorolac [From Toradol] Allergy Hallucinati Verified 11/22/17 12:49 ng ibuprofen AdvReac Gastrointestinal Verified 11/22/17 12:49 Upset naproxen AdvReac Nausea Verified 11/22/17 12:49 Past Medical History - Past Medical History Medical history: Reports: cancer, COPD, other Surgical history: Reports: other Psychiatric history: Reports: anxiety, depression - Social History Smoking Status: Current every day smoker Smokeless Tobacco Status: No Alcohol use: Reports: rarely Drug use: Reports: none Physical Exam - General General appearance: alert, in no apparent distress Course - Reevaluation(s) Reevaluation #1: Attestation note I examined this patient and my medical decision-making was reviewed with the emergency medicine resident. I agree with the documented findings, disposition and treatment plan as described except to the extent set forth below. Patient seen with emergency medicine resident Dr. Beth Stanley, Please see a copy of his note for details of the H&P, ED evaluation, management and disposition. I have independently evaluated the patient and confirmed appropriate portions of the history and physical exam. Briefly: 57-year-old female brought in by family for altered mental status since 3 AM was discharged from [facility] on Thursday with COPD exacerbation patient has a 48-jooo-cryu tobacco history now down to 7 cigarettes per day was treated for COPD flare and started on Levaquin IV and then oral patient is been somnolent and increased work of breathing since 3 AM. Patient is cachectic white male rhonchorous breath sounds bilaterally with bilateral expiratory wheezing. Patient was placed on high flow nasal cannula satting male in the mid 90s getting triple DuoNeb chest x-ray EKG and labs. Admission anticipated. Provided 40 minutes of critical care service for this patient. Disposition pending Time: 16:10 Vital Signs Temperature 98.2 F 11/27/17 15:56 Pulse Rate 103 11/27/17 15:56 Respiratory Rate 8 11/27/17 15:56 Blood Pressure 127/86 11/27/17 15:56 O2 Sat by Pulse Oximetry 96 11/27/17 15:56 Temperature 98.2 F 11/27/17 15:56 Pulse Rate 103 11/27/17 15:56 Respiratory Rate 12 11/27/17 16:07 Blood Pressure 127/86 11/27/17 15:56 O2 Sat by Pulse Oximetry 97 11/27/17 16:07 Oxygen Delivery Oxygen Delivery Nasal Cannula
[2017-11-27] MEDS ORDERED: Naloxone 0.4 MG/ML INJ IVP ONE (16:12)
[2017-11-27 16:16] LABS: Basophils % 0.2 %; Eosinophils # 0.1 K/mcL (0.0-0.6); Eosinophils % 0.3 %; Hematocrit 50.4 % (35.3-44.9); Immature Granulocytes % 0.3 % (0-4); Lymphocytes # 1.4 K/mcL (0.6-4.6); Lymphocytes % 9.3 %; Mean Corpuscular HGB Conc 31.7 g/dL (31.6-35.5); Mean Corpuscular Hemoglobin 30.5 pg (28.0-33.3); Mean Platelet Volume 9.9 fL (9.4-12.4); Monocytes # 1.3 K/mcL (0.0-1.3); Monocytes % 8.3 %; Neutrophils # 12.5 K/mcL (1.6-8.9); Platelet Count 298 K/mcL (140-400); Red Blood Count 5.25 M/mcL (3.82-4.97); Red Cell Distribution Width 15.3 % (11.5-14.5); Segmented Neutrophils % 81.6 %
[2017-11-27 17:04] LABS: Alanine Aminotransferase 15 Units/L (7-52); Albumin 4.3 g/dL (3.5-5.7); Albumin/Globulin Ratio 1.7 (1.1-2.2); Alkaline Phosphatase 103 Units/L (34-104); Aspartate Amino Transferase 15 Units/L (13-39); BUN/Creatinine Ratio 22 (6-26); Bilirubin,Direct 0.1 mg/dL (0.0-0.2); Bilirubin,Indirect 0.2 mg/dL (0.0-1.2); Bilirubin,Total 0.3 mg/dL (0.3-1.0); Blood Urea Nitrogen 10 mg/dL (6-20); Carbon Dioxide 31 mEq/L (23-29); Chloride 100 mEq/L (98-107); Creatine Kinase 36 Units/L (30-223); Ethanol < 10 mg/dL (Less than 10); Globulin 2.6 g/dL (2.4-3.5); Glucose 110 mg/dL (70-105); Lipase 18 Units/L (11-82); Magnesium 2.1 mg/dL (1.6-2.6); Osmolality,Calculated 288 (280-300); Potassium 5.1 mEq/L (3.5-5.1); Sodium 139 mEq/L (136-145); Total Protein 6.9 g/dL (6.4-8.9); Troponin I 0.03 ng/mL (< 0.04); eGFR For African Americans > 60 (> 60); eGFR For Non-African Americans > 60 (> 60)
[2017-11-27] MEDS ORDERED: Azithromycin 500 MG in D5% in Water 250 ML IVPB ONE (17:14)
[2017-11-27] MEDS ORDERED: Acetaminophen 325 MG TABLET PO ONE (17:22)
[2017-11-27 17:39] LABS: Bilirubin,Urine Negative (Negative); Blood,Urine Negative (Negative); Clarity,Urine Clear (Clear); Color,Urine Yellow (Yellow); Glucose,Urine (UA) Normal (Normal); Ketones,Urine Trace mg/dL (Negative); Leukocyte Esterase,Urine Negative (Negative); Nitrite,Urine Negative (Negative); Protein,Urine Trace mg/dL (Neg-Trace); Specific Gravity,Urine 1.028 (1.010-1.025); Urobilinogen,Urine Normal (Normal)
[2017-11-27 17:41] LABS: Bacteria,Urine None Seen per hpf (None-Few); Hyaline Casts,Urine None Seen per lpf (None-Few); RBC,Urine 0-3 per hpf (0-3); Squamous Epithelial Cell,Urine Many per lpf (None-Few); WBC,Urine 0-3 per hpf (0-3)
[2017-11-27 17:48] LABS: Amphetamine Screen,Urine Negative ng/mL (Cutoff=1000); Barbiturate Screen,Urine Negative ng/mL (Cutoff=200); Benzodiazepines Screen,Urine Positive ng/mL (Cutoff=200); Cannabinoid Screen,Urine Positive ng/mL (Cutoff = 50); Cocaine Screen,Urine Negative ng/mL (Cutoff= 300); Opiate Screen,Urine Positive ng/mL (Cutoff=300); Phencyclidine Screen,Urine Negative ng/mL (Cutoff=25)
--- NOTE | 2017-11-27 20:56 | Internal Med History&Physical ---
Date of Encounter: 11/27/17 Time of Encounter: 20:52 Assessment and Plan (1) Smoking Current visit: Yes Status: Chronic Chronic (2) Change in mental status Current visit: Yes Status: Acute Patient urine drug screen positive for opiates benzo marijuana is a likely contribution to have mental status changes she became more awake after being given Narcan we will also check a stat ABG to make sure she is not retaining CO2 Qualifiers: Altered mental status type: disorientation Qualified Code(s): R41.0 - Disorientation, unspecified (3) COPD exacerbation Current visit: Yes Status: Acute Acute on chronic COPD exacerbation chest x-ray does not show pneumonia was started on DuoNeb and steroids (4) Tobacco use disorder Current visit: No Status: Chronic (5) Anxiety and depression Current visit: No Status: Chronic Chronic resume home medication (6) GERD (gastroesophageal reflux disease) Current visit: No Status: Chronic Chronic resume home medication Qualifiers: Esophagitis presence: esophagitis presence not specified Qualified Code(s) : K21.9 - Gastro-esophageal reflux disease without esophagitis Internal Medicine - H&P: HPI Chief complaint: sob and mental status changes Admitted From: Emergency Dept Plans for Post Hospital Care: Home History of present illness: Ms. Sharma is a 57 year old female Patient with history of COPD, smoking, malnutrition, anxiety and depression. Patient recently discharged on Thursday following admission at [facility] for COPD exacerbation but continued to have shortness of breath and decided to come to the emergency room here on her way here patient has slumped over and became more confused . apparently she has taken some norco for headache she was given Narcan in the emergency room patient become more awake. Chest x-ray does not show pneumonia CT of the head was unremarkable urine tox screen was positive for opiates, benzos and marijuana. Patient when I saw patient patient is actively wheezing both inspiration and expiration still she will be admitted for COPD exacerbation I requested the ER physician to obtain a stat ABG to make sure she is not retaining CO2 Past Med Surg Social Fam HX - Past Medical History Medical history: cancer, COPD, other Psychiatric history: anxiety, depression - Past Surgical History Surgical History: other - Social History Smoking Status: Current every day smoker Smokeless Tobacco Status: No Alcohol use: rarely Drug use: none - Family History Mother Living Status: Hx Family Respiratory Disorders: Yes Father Living Status: Hx Family Cardiac Disorders: Yes (heart valve surgery) Hx Family Respiratory Disorders: Yes Internal Medicine - H&P: Meds Albuterol Sulfate [Albuterol Inhaler] 1 puff IH Q4HR PRN 10/22/15 [History] Tiotropium [Spiriva] 18 mcg IH DAILY 10/22/15 [History] Carisoprodol [Soma] 350 mg PO 1-2XD PRN 10/29/15 [History] Meloxicam [Mobic] 15 mg PO DAILY PRN 10/29/15 [History] Montelukast [Singulair] 10 mg PO DAILY 10/29/15 [History] traZODone [TraZODone] 50 mg PO HS PRN 10/29/15 [History] Albuterol Neb [Proventil Neb] 3 ml IH Q4HR #0 11/06/15 [Rx] ALPRAZolam [Xanax 1 MG Tablet] 1 mg PO QID #20 10/13/16 [Rx] Omeprazole 20 mg PO DAILY #30 tablet. 10/13/16 [Rx] Budesonide Neb [Pulmicort Neb] 2 ml IH Q4H 12/10/16 [History] Fluticasone Propionate [Flovent Hfa] 220 mcg IH DAILY 12/10/16 [History] Lactose-Reduced Food [Boost] 237 ml PO TID 12/10/16 [History] HYDROcodone/Acet 5/325 mg [[place] 5-325 mg] 1 tab PO Q4HR PRN #20 tablet [Rx] Oxygen 4 l NS CONT #0 12/15/16 [Rx] 3 Allergy/AdvReac Type Severity Reaction Status Date / Time ketorolac [From Toradol] Allergy Hallucinati Verified 11/22/17 12:49 ng ibuprofen AdvReac Gastrointestinal Verified 11/22/17 12:49 Upset naproxen AdvReac Nausea Verified 11/22/17 12:49 All Systems PM: A 10-system review of systems was performed and is negative for pertinent findings except as documented above in the HPI. - Constitutional Constitutional: fatigue, weakness - EENT Eyes: no change in vision, no discharge, no pain, no photophobia Ears: no ear discharge, no ear pain, no tinnitus Nose, mouth and throat: no dysphagia, no nasal discharge, no neck pain, no sore throat - Cardiovascular Cardiovascular ROS IM: dyspnea, dyspnea on exertion - Respiratory Respiratory: cough, dyspnea on exertion, wheezing - Gastrointestinal Gastrointestinal: no abdominal pain, no diarrhea, no hematemesis, no hematochezia, no melena, no nausea, no vomiting - Genitourinary Genitourinary: no change in urinary stream, no dysuria, no flank pain, no hematuria - Constitutional Vitals: Temp Pulse Resp BP Pulse Ox 98.2 F 83 18 97/70 95 11/27/17 15:56 11/27/17 19:31 11/27/17 19:31 11/27/17 19:31 11/27/17 19:31 General appearance: Present: mild distress - Head Head exam: Present: atraumatic, normocephalic - Neck Neck exam general surgery: Present: supple, trachea midline. Absent: lymphadenopathy - Respiratory Respiratory exam: Present: decreased breath sounds, prolonged expiratory phase, rhonchi, wheezes - Cardiovascular Cardiovascular exam: Present: RRR, +S1, +S2. Absent: diastolic murmur, gallop, rubs, systolic murmur - GI/Abdominal GI/Abdominal exam: Present: normal bowel sounds, soft, no peritoneal signs. Absent: distended, tenderness - Extremities Exam Extremities exam: Present: warm, radial pulses palpable and symmetrical. Absent : calf tenderness, cyanotic, pedal edema Internal Med - H&P Results - Labs CBC & Chem 7: 11/27/17 16:00 11/27/17 15:59
[2017-11-27] MEDS ORDERED: Naloxone 0.4 MG/ML INJ IVP PRN (21:00)
[2017-11-27] MEDS ORDERED: traZODone 50 MG TABLET PO PRN (21:02)
[2017-11-27] MEDS ORDERED: Ipratropium/Albuterol Neb 3 ML IH PRN (21:03)
[2017-11-27 23:03] LABS: ABG Base Excess 10 mEq/L (-2 to 3); ABG HCO3 39 mEq/L (21-27); ABG Oxygen Saturation 89 % (95-98); ABG PCO2 72 mmHg (35-45); ABG PH 7.34 pH Units (7.32-7.45); ABG PO2 63 mmHg (85-104); ABG TCO2 41 mEq/L (20-26)
[2017-11-27] MEDS: methylPREDNISolone 125 MG/2 ML VIAL IVP SCH (23:06)
[2017-11-27] MEDS: 0.9 % Sodium Chloride 1,000 ML IVC SCH (23:06)
[2017-11-27] MEDS: Budesonide Neb 0.5 MG/2 ML IH SCH (23:16)
[2017-11-27] MEDS: Ipratropium/Albuterol Neb 3 ML IH SCH (23:16)
[2017-11-27] MEDS ORDERED: ALPRAZolam 0.5 MG TABLET PO ONE (23:54)
[2017-11-28] MEDS: Acetaminophen 325 MG TABLET PO PRN ×2 (03:58→10:12)
[2017-11-28 04:12] LABS: Hematocrit 40.3 % (35.3-44.9); Mean Corpuscular HGB Conc 31.8 g/dL (31.6-35.5); Mean Corpuscular Hemoglobin 30.5 pg (28.0-33.3); Mean Platelet Volume 10.3 fL (9.4-12.4); Platelet Count 280 K/mcL (140-400)
[2017-11-28] MEDS: Ipratropium/Albuterol Neb 3 ML IH SCH ×6 (04:21→23:29)
[2017-11-28] MEDS: Budesonide Neb 0.5 MG/2 ML IH SCH ×3 (04:21→11:30)
[2017-11-28 04:29] LABS: Alanine Aminotransferase 13 Units/L (7-52); Albumin 3.5 g/dL (3.5-5.7); Albumin/Globulin Ratio 1.4 (1.1-2.2); Alkaline Phosphatase 81 Units/L (34-104); Aspartate Amino Transferase 12 Units/L (13-39); BUN/Creatinine Ratio 33 (6-26); Bilirubin,Total 0.2 mg/dL (0.3-1.0); Blood Urea Nitrogen 13 mg/dL (6-20); Calcium 9.2 mg/dL (8.6-10.3); Carbon Dioxide 35 mEq/L (23-29); Chloride 102 mEq/L (98-107); Globulin 2.5 g/dL (2.4-3.5); Glucose 148 mg/dL (70-105); Hemoglobin 12.8 g/dL (11.5-15.4); Osmolality,Calculated 295 (280-300); Potassium 4.6 mEq/L (3.5-5.1); Sodium 141 mEq/L (136-145); eGFR For African Americans > 60 (> 60); eGFR For Non-African Americans > 60 (> 60)
[2017-11-28] MEDS: *HR* Enoxaparin 40 MG/0.4 ML SYRINGE SQ SCH (06:43)
[2017-11-28] MEDS ORDERED: NON-FORMULARY MEDICATION 1 EACH EACH (Lactose-Reduced Food [Boost] 237 ML) PO SCH (09:00)
[2017-11-28] MEDS ORDERED: Beclomethasone 80mcg MDI IH SCH (09:00)
[2017-11-28] MEDS ORDERED: Carisoprodol 350 MG TABLET PO PRN (10:06)
[2017-11-28] MEDS: methylPREDNISolone 125 MG/2 ML VIAL IVP SCH ×3 (10:13→23:25)
[2017-11-28] MEDS: ALPRAZolam 1 MG TABLET PO SCH ×3 (12:35→21:26)
[2017-11-28] MEDS: 0.9 % Sodium Chloride 1,000 ML IVC SCH (12:35)
--- NOTE | 2017-11-28 14:44 | Internal Med Progress Note ---
Date of Encounter: 11/28/17 Time of Encounter: 14:15 - Assessment and plan (1) COPD exacerbation Current Visit: Yes Status: Acute Assessment and plan: #1 continue Solu-Medrol, bronchodilators #2 resume home inhalers and discharge #3 noted no clear indication for antibiotics at this time (2) Smoking Current Visit: Yes Status: Chronic Assessment and plan: Spent 15 minutes talking the patient and counseled to quit smoking. She currently smokes seven cigarettes per day. (3) Acute on chronic respiratory failure with hypoxia Current Visit: No Status: Acute Assessment and plan: Supplementary oxygen as needed . Presently on 3 L/m 24 hours a day. (4) Anxiety and depression Current Visit: No Status: Chronic (5) Severe protein-calorie malnutrition Current Visit: No Status: Chronic - Time Spent With Patient Total time spent is greater than 50% in coordination of care (as documented) at patient's floor/unit and/or counseling patient: 25 - 35 minutes - Subjective Interval history: Reports no significant improvement in dyspnea. Still endorses chronic cough. No events overnight. Requesting xanax and pain killers. - Constitutional Vitals: Temp Pulse Resp BP Pulse Ox 98.5 F 76 17 121/71 97 11/28/17 10:33 11/28/17 10:33 11/28/17 10:33 11/28/17 10:33 11/28/17 10:33 General appearance: Present: mild distress, A&O X 3 Exam: Physical exam Gen: Comfortable, laying in bed, in no visible distress, cachectic HEENT: Normocephalic, atraumatic. No conjunctival icterus. Moist oral mucosa. Neck: Supple Lungs: Diminished auscultation, no wheezing bilaterally Heart: Normal S1-S2, no murmurs rubs or gallops Abdomen: Normoactive bowel sounds, no guarding rigidity or tenderness Extremities: No edema clubbing or cyanosis Neuro: Alert oriented 3, no focal deficits Skin: No skin lesions Internal Medicine: Result - Labs CBC & Chem 7: 11/28/17 03:18 11/28/17 03:18 Labs: Short CBC 11/28/17 Range/Units 03:18 WBC 7.9 (4.3-11.1) K/mcL Hgb 12.8 D (11.5-15.4) g/dL Hct 40.3 (35.3-44.9) % Plt Count 280 (140-400) K/mcL BMP 11/28/17 03:18 Sodium 141 Potassium 4.6 Chloride 102 Carbon Dioxide 35 H BUN 13 Creatinine 0.40 L Glucose 148 H Calcium 9.2 Liver Function 11/28/17 Range/Units 03:18 Total Bilirubin 0.2 L (0.3-1.0) mg/dL AST 12 L (13-39) Units/L ALT 13 (7-52) Units/L Alkaline Phosphatase 81 (34-104) Units/L Albumin 3.5 (3.5-5.7) g/dL - ABG Interpretation ABG results: ABG ABG pH 7.34 pH Units (7.32-7.45) 11/27/17 22:54 ABG pCO2 72 mmHg (35-45) H* 11/27/17 22:54 ABG pO2 63 mmHg (85-104) L 11/27/17 22:54 ABG O2 Saturation 89 % (95-98) L 11/27/17 22:54 Consult Discharge Plan - Plan Referrals: NONE,PCP [Primary Care Provider] -
[2017-11-28] MEDS: traMADol 50 MG TABLET PO PRN (17:22)
[2017-11-29] MEDS: Ipratropium/Albuterol Neb 3 ML IH SCH ×6 (04:25→23:59)
[2017-11-29 05:37] LABS: ABG Base Excess 11 mEq/L (-2 to 3); ABG HCO3 40 mEq/L (21-27); ABG Oxygen Saturation 84 % (95-98); ABG PCO2 70 mmHg (35-45); ABG PH 7.36 pH Units (7.32-7.45); ABG PO2 54 mmHg (85-104); ABG TCO2 42 mEq/L (20-26)
--- NOTE | 2017-11-29 05:40 | Event Note ---
<ElderUlysses - Last Filed: 11/29/17 05:40> Date of Encounter: 11/29/17 Time of Encounter: 05:34 Summoned to the patient's room via rapid response at approximately 05:20. In brief she is a 57-year-old female with an underlying history of COPD who was admitted for acute exacerbation. It appears that at the time of her admission she required Narcan for depressed mental status. There also reports that she has asked for opiate medications numerous times during her hospitalization. RN reports family visited her today. She was noted to be more somnolent and apneic this morning and received Narcan with improvement of her mental status and respiratory status. Rapid response was called secondary to the patient being apneic. At the time of arrival the patient is alert maintaining her airway with mild respiratory distress. She perseverates on the name Neal. She is able to follow commands and moves all extremities without focal deficits however she is not oriented. Reported she was previously alert and oriented 3. Pupils appear to be roughly 6 mm, equal and reactive. She is complaining of neck pain and holding her left neck with her hand. There was concern that perhaps the visitors yesterday evening may have brought her in illicit or opiate substance. Initially 88% with expiratory wheeze and tachypnea. Improved with increased nasal cannula supplementation. Plan: Obtain EKG and troponin given the patient's acute hypoxia and neck pain. We will also obtain a chest x-ray given her respiratory distress which has already improved as well as her hypoxia. Last we will obtain an ABG to evaluate for worsening respiratory failure in the setting of her underlying COPD. she has no focal deficits that would raise concern and warrant advanced imaging at this time. <Johan Alexandra - Last Filed: 11/29/17 06:08> Date of Encounter: 11/29/17 Agree with plan and details as documented above, I was present at the bedside throughout CXR reviewed-no infiltrates, no pneumothorax ABG reviewed: hypoxia and hypercapnea, PH is WNL BiPAP ordered, continue close monitoring Troponin is pending
[2017-11-29] MEDS: *HR* Enoxaparin 40 MG/0.4 ML SYRINGE SQ SCH (06:57)
[2017-11-29] MEDS: traMADol 50 MG TABLET PO PRN (08:38)
[2017-11-29] MEDS: ALPRAZolam 1 MG TABLET PO SCH ×4 (08:38→21:25)
[2017-11-29] MEDS: methylPREDNISolone 125 MG/2 ML VIAL IVP SCH ×2 (08:39→16:51)
--- NOTE | 2017-11-29 12:05 | Internal Med Progress Note ---
Date of Encounter: 11/29/17 Time of Encounter: 12:00 - Assessment and plan (1) COPD exacerbation Current Visit: Yes Status: Acute Assessment and plan: Continue IV steroids, scheduled and when necessary duoneb. She will need at least 2 more days of intravenous steroids for the inflammation to settle down. We will resume maintenance inhalers prior to discharge. (2) Smoking Current Visit: Yes Status: Chronic Assessment and plan: Spent 15 minutes talking the patient and counseled to quit smoking. She currently smokes seven cigarettes per day. (3) Acute on chronic respiratory failure with hypoxia Current Visit: No Status: Acute Assessment and plan: Supplementary oxygen as needed . Presently on 3 L/m 24 hours a day. (4) Anxiety and depression Current Visit: No Status: Chronic Assessment and plan: Requesting Xanax which is ordered. We discussed in detail the risk of respiratory failure. We will reassess clinically based on how she does. No narcotics at this time. (5) Severe protein-calorie malnutrition Current Visit: No Status: Chronic - Time Spent With Patient Total time spent is greater than 50% in coordination of care (as documented) at patient's floor/unit and/or counseling patient: 25 - 35 minutes - Subjective Interval history: Noted event overnight where she was found to be hypoxemic less responsive that was attributed to narcotics. Narcan was given. ABG showed hypercapnia hypoxemia. Today she requests Xanax which is scheduled already. She also requests Vicodin which I refused to resume due to high risk of respiratory failure. - Constitutional Vitals: Temp Pulse Resp BP Pulse Ox 98.2 F 88 18 125/76 96 11/29/17 11:27 11/29/17 11:27 11/29/17 11:32 11/29/17 11:27 11/29/17 11:32 General appearance: Present: mild distress, A&O X 3 Exam: Physical exam Gen: Comfortable, laying in bed, in no visible distress, cachectic HEENT: Normocephalic, atraumatic. No conjunctival icterus. Moist oral mucosa. Neck: Supple Lungs: wheezing despite breathing treatment, diminished breath sounds Heart: Normal S1-S2, no murmurs rubs or gallops Abdomen: Normoactive bowel sounds, no guarding rigidity or tenderness Extremities: No edema clubbing or cyanosis Neuro: Alert oriented 3, no focal deficits Skin: No skin lesions Internal Medicine: Result - Labs CBC & Chem 7: 11/28/17 03:18 11/28/17 03:18 Labs: Cardiac Enzymes 11/29/17 Range/Units 05:45 Troponin I < 0.03 (< 0.04) ng/mL - ABG Interpretation ABG results: ABG ABG pH 7.36 pH Units (7.32-7.45) 11/29/17 05:33 ABG pCO2 70 mmHg (35-45) H* 11/29/17 05:33 ABG pO2 54 mmHg (85-104) L 11/29/17 05:33 ABG O2 Saturation 84 % (95-98) L 11/29/17 05:33 - Impressions Impressions Chest X-Ray 11/29/17 05:33 IMPRESSION: 1. Increased atelectasis/scarring in the left lung base. 2. Emphysema. D/ / 11/29/2017 10:03:21 Martin Clay MD / camilla Interpreting Provider: Martin Clay MD Consult Discharge Plan - Plan Referrals: NONE,PCP [Primary Care Provider] -
[2017-11-29 13:17] LABS: Basophils % 0.1 %; Hematocrit 40.8 % (35.3-44.9); Hemoglobin 12.9 g/dL (11.5-15.4); Immature Granulocytes % 0.3 % (0-4); Lymphocytes # 0.4 K/mcL (0.6-4.6); Lymphocytes % 3.4 %; Mean Corpuscular HGB Conc 31.6 g/dL (31.6-35.5); Mean Corpuscular Hemoglobin 30.4 pg (28.0-33.3); Mean Corpuscular Volume 96.2 fL (83.0-100.0); Monocytes # 0.4 K/mcL (0.0-1.3); Neutrophils # 11.9 K/mcL (1.6-8.9); Platelet Count 307 K/mcL (140-400); Red Blood Count 4.24 M/mcL (3.82-4.97); Red Cell Distribution Width 15.2 % (11.5-14.5); Segmented Neutrophils % 93.2 %
[2017-11-29 13:33] LABS: BUN/Creatinine Ratio 35 (6-26); Blood Urea Nitrogen 17 mg/dL (6-20); Carbon Dioxide 38 mEq/L (23-29); Chloride 98 mEq/L (98-107); Glucose 155 mg/dL (70-105); Osmolality,Calculated 293 (280-300); Potassium 4.5 mEq/L (3.5-5.1); Sodium 139 mEq/L (136-145); eGFR For African Americans > 60 (> 60); eGFR For Non-African Americans > 60 (> 60)
[2017-11-29] MEDS: Acetaminophen 325 MG TABLET PO PRN (21:24)
[2017-11-30] MEDS: methylPREDNISolone 125 MG/2 ML VIAL IVP SCH ×5 (00:47→22:08)
[2017-11-30] MEDS: Ipratropium/Albuterol Neb 3 ML IH SCH ×6 (04:20→22:57)
[2017-11-30 05:09] LABS: Basophils % 0.1 %; Hematocrit 37.4 % (35.3-44.9); Hemoglobin 11.7 g/dL (11.5-15.4); Immature Granulocytes % 0.5 % (0-4); Lymphocytes # 0.5 K/mcL (0.6-4.6); Lymphocytes % 5.3 %; Mean Corpuscular HGB Conc 31.3 g/dL (31.6-35.5); Mean Corpuscular Hemoglobin 30.2 pg (28.0-33.3); Mean Corpuscular Volume 96.4 fL (83.0-100.0); Mean Platelet Volume 10.1 fL (9.4-12.4); Monocytes # 0.2 K/mcL (0.0-1.3); Monocytes % 2.8 %; Neutrophils # 7.9 K/mcL (1.6-8.9); Platelet Count 297 K/mcL (140-400); Red Blood Count 3.88 M/mcL (3.82-4.97); Red Cell Distribution Width 15.1 % (11.5-14.5); Segmented Neutrophils % 91.3 %
[2017-11-30] MEDS: *HR* Enoxaparin 40 MG/0.4 ML SYRINGE SQ SCH (05:24)
[2017-11-30 05:30] LABS: BUN/Creatinine Ratio 46 (6-26); Blood Urea Nitrogen 19 mg/dL (6-20); Calcium 9.9 mg/dL (8.6-10.3); Carbon Dioxide 39 mEq/L (23-29); Chloride 97 mEq/L (98-107); Glucose 127 mg/dL (70-105); Osmolality,Calculated 296 (280-300); Potassium 4.6 mEq/L (3.5-5.1); Sodium 141 mEq/L (136-145); eGFR For African Americans > 60 (> 60); eGFR For Non-African Americans > 60 (> 60)
[2017-11-30] MEDS: ALPRAZolam 1 MG TABLET PO SCH ×4 (07:54→21:17)
--- NOTE | 2017-11-30 10:16 | Palliative - Consult Note ---
<Deep Montiel - Last Filed: 11/30/17 10:05> Date of Encounter: 11/30/17 Time of Encounter: 09:50 - Assessment and Plan (1) COPD exacerbation Current Visit: Yes Status: Acute Assessment and plan: Patient receiving IV steroids and prn duoneb. Patient expresses frustrations that she is not receiving her maintenance inhalers while inpatient, it appear with IM notes that plan is to restart prior to discharge. Management per primary team. (2) Tobacco use disorder Current Visit: No Status: Chronic Assessment and plan: Patient admits to currently smoking approx 7 cigarettes daily, notes initially was smoking 3ppd. Patient counseled on smoking cessation. (3) Acute on chronic respiratory failure with hypoxia Current Visit: No Status: Acute Assessment and plan: Supplemental oxygen as needed. Currently on 4L via nasal cannula. Management per primary team. (4) Severe protein-calorie malnutrition Current Visit: No Status: Chronic Assessment and plan: Patient uses supplemental shakes at home (5) Anxiety and depression Current Visit: No Status: Chronic Assessment and plan: Patient receiving scheduled xanax for anxiety. No medications specific for depression. Home norco held is conjunction with bendzodiazepine use and multiple episodes of apnea (responding to narcan). (6) Goals of care, counseling/discussion Current Visit: Yes Status: Acute Assessment and plan: I had an indepth discussion with Mr. Sharma about her wishes and goals of care. She is adamant that she wishes to remain full code (agreeable to compressions and intubation if warranted). She understands that she has serious health comorbidities and wishes to fully pursue treatment. Next of kin is her son, Parveen, whom lives with patient and helps care for Ms. Sharma. Their home phone number is [phone]. Patient has not been able to reach her son via phone this morning. She states they have not discussed her goals or care but she "hopes he knows I want to live". Ms. Sharma did express interest in talking to someone from the pastoral service today. Palliative-CN HPI - Data of Consult Consult date: 11/29/17 Requesting Physician: Beni Kurtz MD Primary Care Provider: PCP NONE - Consult Narrative Palliative Care/Comfort Measures: Palliative care Reason for consult: goals of care, code status History of present illness: Ms. Sharma is a 57 year old female with history of COPD, smoking, malnutrition, chronic back pain, anxiety and depression. Patient recently discharged on Thursday following admission at [facility] for COPD exacerbation but continued to have shortness of breath at home. Previously her chart stated she took norco on route to [place] ED, however today patient admits taking Xanax and marijuana on route to help with anxiety. She did received Narcan in the ED and became more awake and alert. Chest x-ray did not show pneumonia Urine tox screen was positive for opiates, benzos and marijuana. Patient had another episode of somnolence and apnea yesterday morning, rapid response called, patient reportedly responded to narcan. Palliative care consulted for further discussion of goals of care. CC: Beni Kurtz MD Past Med Surg Social Fam HX - Past Medical History Medical history: asthma, cancer, COPD, other Psychiatric history: anxiety, depression - Past Surgical History Surgical History: other - Social History Smoking Status: Current every day smoker Smokeless Tobacco Status: No Alcohol use: unknown Drug use: marijuana - Family History Mother Living Status: Hx Family Respiratory Disorders: Yes Father Living Status: Hx Family Cardiac Disorders: Yes (heart valve surgery) Hx Family Respiratory Disorders: Yes Medications and Allergies Albuterol Sulfate [Albuterol Inhaler] 1 puff IH Q4HR PRN 10/22/15 [History] Tiotropium [Spiriva] 18 mcg IH DAILY 10/22/15 [History] Carisoprodol [Soma] 350 mg PO 1-2XD PRN 10/29/15 [History] Meloxicam [Mobic] 15 mg PO DAILY PRN 10/29/15 [History] Montelukast [Singulair] 10 mg PO DAILY 10/29/15 [History] traZODone [TraZODone] 50 mg PO HS PRN 10/29/15 [History] Albuterol Neb [Proventil Neb] 3 ml IH Q4HR #0 11/06/15 [Rx] ALPRAZolam [Xanax 1 MG Tablet] 1 mg PO QID #20 10/13/16 [Rx] Omeprazole 20 mg PO DAILY #30 tablet. 10/13/16 [Rx] Budesonide Neb [Pulmicort Neb] 2 ml IH Q4H 12/10/16 [History] Fluticasone Propionate [Flovent Hfa] 220 mcg IH DAILY 12/10/16 [History] Lactose-Reduced Food [Boost] 237 ml PO TID 12/10/16 [History] HYDROcodone/Acet 5/325 mg [[place] 5-325 mg] 1 tab PO Q4HR PRN #20 tablet [Rx] Oxygen 4 l NS CONT #0 12/15/16 [Rx] 3 Allergy/AdvReac Type Severity Reaction Status Date / Time ketorolac [From Toradol] Allergy Hallucinati Verified 11/22/17 12:49 ng ibuprofen AdvReac Gastrointestinal Verified 11/22/17 12:49 Upset naproxen AdvReac Nausea Verified 11/22/17 12:49 - Constitutional Constitutional ROS PAL: weight loss, no chills, no fever(s) - EENT Eyes: no change in vision Ears: no decreased hearing Ears, nose, mouth, throat: no dysphagia - Cardiovascular Cardiovascular ROS: dyspnea on exertion, no chest pain, no edema - Respiratory Respiratory: cough, dyspnea, excessive phlegm production, no pain on inspiration - Gastrointestinal Gastrointestinal: no abdominal pain, no change in bowel habits, no nausea, no vomiting - Genitourinary Palliative ROS female: no difficulty voiding, no dysuria - Musculoskeletal Musculoskeletal ROS IM: back pain, neck pain - Integumentary ROS Integumentary: no dry skin, no erythema, no new lesions, no rash - Neurological Neurological ROS: headache(s), no confusion, no memory loss - Psychiatric Psychiatric general PM: anxiety, depression, no confusion Palliative Care-Exam - Constitutional Vitals: Temp Pulse Resp BP Pulse Ox 97.8 F 82 16 142/84 93 11/30/17 07:08 11/30/17 07:08 11/30/17 08:22 11/30/17 08:22 11/30/17 08:22 General appearance: Present: no acute distress, thin - Head Head Exam: Present: atraumatic, normocephalic - Eye Eye exam: Present: EOMI. Absent: scleral icterus - ENT ENT exam: Present: mucous membranes moist - Neck Neck exam: Present: full ROM Additional comments: supple - Respiratory Respiratory exam: Absent: accessory muscle use Additional comments: diffuse coarse breath sounds throughout with rhonchi and wheezing. - Cardiovascular Cardiovascular exam: Present: RRR. Absent: diastolic murmur, systolic murmur - GI/Abdominal Exam GI/Abdominal exam: Present: normal bowel sounds, soft. Absent: tenderness - Extremities Exam Extremities exam: Present: normal capillary refill. Absent: calf tenderness, pedal edema - Neurological Exam Neurological exam: Present: alert, oriented X3. Absent: facial droop, speech deficit - Psychiatric Additional comments: emotions labile- joyful/smiling to anger to crying. - Skin Skin exam: Present: dry, intact, normal color, warm. Absent: rash Internal Medicine - CN: Reslt - Labs CBC & Chem 7: 11/30/17 04:25 11/30/17 04:25 Labs: Short CBC 11/29/17 11/30/17 Range/Units 12:53 04:25 WBC 12.8 H D 8.7 (4.3-11.1) K/mcL Hgb 12.9 11.7 (11.5-15.4) g/dL Hct 40.8 37.4 (35.3-44.9) % Plt Count 307 297 (140-400) K/mcL Neutrophils # 11.9 H 7.9 (1.6-8.9) K/mcL BMP 11/29/17 11/30/17 12:53 04:25 Sodium 139 141 Potassium 4.5 4.6 Chloride 98 97 L Carbon Dioxide 38 H 39 H BUN 17 19 Creatinine 0.49 L 0.41 L Glucose 155 H 127 H Calcium 10.0 9.9 - ABG Interpretation ABG results: ABG ABG pH 7.36 pH Units (7.32-7.45) 11/29/17 05:33 ABG pCO2 70 mmHg (35-45) H* 11/29/17 05:33 ABG pO2 54 mmHg (85-104) L 11/29/17 05:33 ABG O2 Saturation 84 % (95-98) L 11/29/17 05:33 - Impressions Impressions Chest X-Ray 11/29/17 05:33 IMPRESSION: 1. Increased atelectasis/scarring in the left lung base. 2. Emphysema. D/ / 11/29/2017 10:03:21 Martin Clay MD / camilla Interpreting Provider: Martin Clay MD Consult Discharge Plan - Plan Referrals: NONE,PCP [Primary Care Provider] - Palliative Quality Palliative Quality: Screen for Code Status: Yes, Screen for Goals of Care: Yes, Screen for Pain: Yes, If Pain Regimen Started, Initiate Bowel Regimen: Yes, Screen for Nausea/Vomitting: Yes <Manoj Flores - Last Filed: 11/30/17 11:49> Date of Encounter: 11/30/17 Palliative-CN HPI - Data of Consult Requesting Physician: Beni Kurtz MD Primary Care Provider: PCP NONE - Consult Narrative History of present illness: Ms. Sharma is a 57 year old female CC: Beni Kurtz MD Palliative Care-Exam - Constitutional Vitals: Temp Pulse Resp BP Pulse Ox 97.9 F 88 17 122/78 94 11/30/17 10:45 11/30/17 10:45 11/30/17 10:45 11/30/17 10:45 11/30/17 10:45 Internal Medicine - CN: Reslt - Labs CBC & Chem 7: 11/30/17 04:25 11/30/17 04:25 Labs: Short CBC 11/29/17 11/30/17 Range/Units 12:53 04:25 WBC 12.8 H D 8.7 (4.3-11.1) K/mcL Hgb 12.9 11.7 (11.5-15.4) g/dL Hct 40.8 37.4 (35.3-44.9) % Plt Count 307 297 (140-400) K/mcL Neutrophils # 11.9 H 7.9 (1.6-8.9) K/mcL BMP 11/29/17 11/30/17 12:53 04:25 Sodium 139 141 Potassium 4.5 4.6 Chloride 98 97 L Carbon Dioxide 38 H 39 H BUN 17 19 Creatinine 0.49 L 0.41 L Glucose 155 H 127 H Calcium 10.0 9.9 - ABG Interpretation ABG results: ABG ABG pH 7.36 pH Units (7.32-7.45) 11/29/17 05:33 ABG pCO2 70 mmHg (35-45) H* 11/29/17 05:33 ABG pO2 54 mmHg (85-104) L 11/29/17 05:33 ABG O2 Saturation 84 % (95-98) L 11/29/17 05:33 - Impressions Impressions Chest X-Ray 11/29/17 05:33 IMPRESSION: 1. Increased atelectasis/scarring in the left lung base. 2. Emphysema. D/ / 11/29/2017 10:03:21 Martin Clay MD / camilla Interpreting Provider: Martin Clay MD - Attending Attestation I examined this patient and my medical decision-making was reviewed with the Resident Physician. I agree with the documented findings, disposition and treatment plan as described except to the extent set forth below.
[2017-11-30] MEDS: traMADol 50 MG TABLET PO PRN ×2 (10:38→22:07)
--- NOTE | 2017-11-30 18:02 | Internal Med Progress Note ---
Date of Encounter: 11/30/17 Time of Encounter: 11:00 - Assessment and plan (1) COPD exacerbation Current Visit: Yes Status: Acute Assessment and plan: Continue nebs and supplemental O2; wean as tolerated. Increase steroids to solumedrol 80 mg Q6H. Restart home COPD medications per patient request. Continue to monitor closely. (2) Acute on chronic respiratory failure with hypoxia Current Visit: Yes Status: Acute Assessment and plan: Continue supplemental O2 PRN; wean as tolerated. Treat COPD as per above. (3) Anxiety and depression Current Visit: Yes Status: Chronic Assessment and plan: Continue home scheduled xanax. Start celexa 20 mg QD. (4) Severe protein-calorie malnutrition Current Visit: Yes Status: Chronic Assessment and plan: Restart home supplemental shakes. (5) Smoking Current Visit: Yes Status: Chronic Assessment and plan: Counseled on smoking cessation. Not interested in quitting at this time. (6) DVT prophylaxis Current Visit: Yes Status: Acute Assessment and plan: Continue lovenox 40 mg SQ QD. - Time Spent With Patient Total time spent is greater than 50% in coordination of care (as documented) at patient's floor/unit and/or counseling patient: 25 - 35 minutes - Subjective Interval history: Patient had no acute events overnight. She states that breathing is better and she wants to go home. She complains of pain and wants her home pain medications. I counselled her on opioids and respiratory depression. She wants her home COPD medications ordered, and I told her that we will order them. She states that she has increased anxiety and does not like going out in public. - Constitutional Vitals: Temp Pulse Resp BP Pulse Ox 98.8 F 86 17 124/72 91 11/30/17 16:04 11/30/17 16:04 11/30/17 16:04 11/30/17 16:04 11/30/17 16:04 General appearance: Present: cooperative, A&O X 3, no acute distress, answers questions appropriately - Respiratory Respiratory exam: Absent: accessory muscle use, rales, rhonchi Additional comments: Mildly labored WOB, coarse breath sounds bilaterally with moderate expiratory wheezing - Cardiovascular Cardiovascular exam: Present: diastolic murmur, gallop, RRR, rubs, +S1, +S2, systolic murmur Additional comments: No BLE edema - GI/Abdominal GI/Abdominal exam: Present: normal bowel sounds, soft. Absent: distended, hepatomegaly, mass, splenomegaly, tenderness - Psychiatric Psychiatric exam: Present: anxious. Absent: depressed Additional comments: Anxious mood and affect, no depression or SI - Skin Skin exam: Present: dry, intact, warm. Absent: cyanosis, rash Internal Medicine: Result - Labs CBC & Chem 7: 11/30/17 04:25 11/30/17 04:25 Labs: Short CBC 11/30/17 Range/Units 04:25 WBC 8.7 (4.3-11.1) K/mcL Hgb 11.7 (11.5-15.4) g/dL Hct 37.4 (35.3-44.9) % Plt Count 297 (140-400) K/mcL Neutrophils # 7.9 (1.6-8.9) K/mcL BMP 11/30/17 04:25 Sodium 141 Potassium 4.6 Chloride 97 L Carbon Dioxide 39 H BUN 19 Creatinine 0.41 L Glucose 127 H Calcium 9.9 - ABG Interpretation ABG results: ABG ABG pH 7.36 pH Units (7.32-7.45) 11/29/17 05:33 ABG pCO2 70 mmHg (35-45) H* 11/29/17 05:33 ABG pO2 54 mmHg (85-104) L 11/29/17 05:33 ABG O2 Saturation 84 % (95-98) L 11/29/17 05:33 Consult Discharge Plan - Plan Referrals: NONE,PCP [Non-Partnered Physician] -
[2017-11-30] MEDS: Budesonide Neb 0.5 MG/2 ML IH SCH (22:57)
[2017-12-01] MEDS: Ipratropium/Albuterol Neb 3 ML IH SCH ×5 (03:29→23:08)
[2017-12-01] MEDS: traMADol 50 MG TABLET PO PRN (04:20)
[2017-12-01 05:06] LABS: Basophils % 0.1 %; Hematocrit 42.8 % (35.3-44.9); Immature Granulocytes % 0.9 % (0-4); Lymphocytes # 0.4 K/mcL (0.6-4.6); Lymphocytes % 5.2 %; Mean Corpuscular HGB Conc 31.5 g/dL (31.6-35.5); Mean Corpuscular Hemoglobin 30.6 pg (28.0-33.3); Mean Corpuscular Volume 97.1 fL (83.0-100.0); Mean Platelet Volume 10.2 fL (9.4-12.4); Monocytes # 0.4 K/mcL (0.0-1.3); Monocytes % 5.2 %; Platelet Count 343 K/mcL (140-400); Red Blood Count 4.41 M/mcL (3.82-4.97); Segmented Neutrophils % 88.6 %
--- NOTE | 2017-12-01 05:18 | Electrocardiograph Report ---
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
[2017-12-01 05:22] LABS: Hemoglobin 13.5 g/dL (11.5-15.4)
[2017-12-01 05:31] LABS: BUN/Creatinine Ratio 45 (6-26); Blood Urea Nitrogen 20 mg/dL (6-20); Calcium 9.9 mg/dL (8.6-10.3); Carbon Dioxide 38 mEq/L (23-29); Chloride 95 mEq/L (98-107); Glucose 121 mg/dL (70-105); Osmolality,Calculated 292 (280-300); Potassium 4.4 mEq/L (3.5-5.1); Sodium 139 mEq/L (136-145); eGFR For African Americans > 60 (> 60); eGFR For Non-African Americans > 60 (> 60)
--- NOTE | 2017-12-01 05:59 | Electrocardiograph Report ---
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
[2017-12-01] MEDS: *HR* Enoxaparin 40 MG/0.4 ML SYRINGE SQ SCH (06:18)
[2017-12-01] MEDS: methylPREDNISolone 125 MG/2 ML VIAL IVP SCH ×4 (06:19→22:04)
[2017-12-01] MEDS: Budesonide Neb 0.5 MG/2 ML IH SCH ×2 (07:41→20:22)
[2017-12-01] MEDS: ALPRAZolam 1 MG TABLET PO SCH ×4 (08:30→21:38)
--- NOTE | 2017-12-01 10:00 | Palliative Progress Note ---
Date of Encounter: 12/01/17 Time of Encounter: 08:50 - Assessment and plan (1) COPD exacerbation Current Visit: Yes Status: Acute Assessment and plan: Slowly improving although her lungs still sound terrible. Plan per hospitalist team (2) Constipation Current Visit: No Status: Acute Assessment and plan: Have placed patient on a bowel regimen as she is not having bowel movements like she does at home, I am concerned about her trying to strain at stool with her lung sounding as bad as they do. Qualifiers: Constipation type: unspecified constipation type Qualified Code(s): K59.00 - Constipation, unspecified (3) Thrush, oral Current Visit: No Status: Resolved Assessment and plan: I believe that she has a small amount of oral thrush making a come back. His is probably also responsible for small amount of lymphadenopathy in the left anterior chain. Have started nystatin swish and swallow. (4) Goals of care, counseling/discussion Current Visit: Yes Status: Acute Assessment and plan: Patient had a long code discussion with my resident yesterday she wishes to remain a full code. Her goal of care is to return home. - Time Spent With Patient Total time spent is greater than 50% in coordination of care (as documented) at patient's floor/unit and/or counseling patient: - Subjective Interval history: Breathing is a little better this morning, she does complain of a bit of a sore throat and soreness on the left hand side of her neck and head. She also states her bowels are not moving with a normally movement home. - Constitutional Vitals: Abnormal lab results MCHC 31.5 g/dL (31.6-35.5) L 12/01/17 04:07 RDW 15.0 % (11.5-14.5) H 12/01/17 04:07 Lymphocytes # 0.4 K/mcL (0.6-4.6) L 12/01/17 04:07 ABG pCO2 70 mmHg (35-45) H* 11/29/17 05:33 ABG pO2 54 mmHg (85-104) L 11/29/17 05:33 ABG HCO3 40 mEq/L (21-27) H 11/29/17 05:33 ABG Total CO2 42 mEq/L (20-26) H 11/29/17 05:33 ABG O2 Saturation 84 % (95-98) L 11/29/17 05:33 ABG Base Excess 11 mEq/L (-2 to 3) H 11/29/17 05:33 Chloride 95 mEq/L (98-107) L 12/01/17 04:07 Carbon Dioxide 38 mEq/L (23-29) H 12/01/17 04:07 Creatinine 0.44 mg/dL (0.60-1.20) L 12/01/17 04:07 BUN/Creatinine Ratio 45 (6-26) H 12/01/17 04:07 Glucose 121 mg/dL (70-105) H 12/01/17 04:07 POC Glucose 120 mg/dL (70-99) H 11/27/17 15:56 Total Bilirubin 0.2 mg/dL (0.3-1.0) L 11/28/17 03:18 AST 12 Units/L (13-39) L 11/28/17 03:18 Serum Total Protein 6.0 g/dL (6.4-8.9) L 11/28/17 03:18 Ur Specific [place] 1.028 (1.010-1.025) H 11/27/17 17:22 Urine Ketones Trace mg/dL (Negative) H 11/27/17 17:22 Ur Squamous Epith Cells Many per lpf (None-Few) H 11/27/17 17:22 Urine Opiates Screen Positive ng/mL (Ozgpsr=569) H 11/27/17 17:22 U Benzodiazepines Scrn Positive ng/mL (Cvyfgb=590) H 11/27/17 17:22 U Marijuana (THC) Screen Positive ng/mL (Cutoff = 50) H 11/27/17 17:22 General appearance: Present: no acute distress - Head Head exam: Present: atraumatic, normal inspection - ENT ENT exam: Present: mucous membranes moist. Absent: normal exam, normal oropharynx (Appears to be a small amount of thrush in the back of the oropharynx. This does not clear with swallowing. We will start nystatin.) - Neck Neck exam: Present: lymphadenopathy (Slightly tender over the left cleidomastoid muscle and there are palpable lymph nodes in the anterior chain.) , tenderness - Respiratory Respiratory exam: Present: decreased breath sounds, rhonchi, wheezes - Cardiovascular Cardiovascular exam: Present: RRR - GI/Abdominal GI/Abdominal exam: Present: normal bowel sounds, soft. Absent: tenderness - Extremities Exam Extremities exam: Absent: pedal edema, tenderness - Neurological Exam Neurological exam: Present: oriented X3. Absent: alert, altered - Psychiatric Psychiatric exam: Absent: agitated, anxious - Skin Skin exam: Present: dry, warm Palliative Quality Palliative Quality: Screen for Code Status: Yes, Screen for Goals of Care: Yes, Screen for Pain: Yes, If Pain Regimen Started, Initiate Bowel Regimen: Yes, Screen for Nausea/Vomitting: Yes - Labs CBC & Chem 7: 12/01/17 04:07 12/01/17 04:07 Labs: Laboratory Results - last 24 hr 12/01/17 12/01/17 04:07 04:07 WBC 6.7 RBC 4.41 Hgb 13.5 D Hct 42.8 MCV 97.1 MCH 30.6 MCHC 31.5 L RDW 15.0 H Plt Count 343 MPV 10.2 Immature Gran % 0.9 Seg Neutrophils % 88.6 Lymphocytes % 5.2 Monocytes % 5.2 Eosinophils % 0.0 Basophils % 0.1 Neutrophils # 6.0 Lymphocytes # 0.4 L Monocytes # 0.4 Eosinophils # 0.0 Basophils # 0.0 Sodium 139 Potassium 4.4 Chloride 95 L Carbon Dioxide 38 H BUN 20 Creatinine 0.44 L Est GFR ( Amer) > 60 Est GFR (Non-Af Amer) > 60 BUN/Creatinine Ratio 45 H Glucose 121 H Calculated Osmolality 292 Calcium 9.9 - ABG Interpretation ABG results: ABG ABG pH 7.36 pH Units (7.32-7.45) 11/29/17 05:33 ABG pCO2 70 mmHg (35-45) H* 11/29/17 05:33 ABG pO2 54 mmHg (85-104) L 11/29/17 05:33 ABG O2 Saturation 84 % (95-98) L 11/29/17 05:33 Consult Discharge Plan - Plan Referrals: NONE,PCP [Non-Partnered Physician] -
[2017-12-01] MEDS: Nystatin SUSP 5 ML UD.LIQ PO SCH ×3 (11:57→21:39)
[2017-12-01] MEDS ORDERED: Albuterol 2.5 MG/3 ML NEBULIZER IH PRN (15:29)
[2017-12-01] MEDS ORDERED: Ipratropium/Albuterol Neb 3 ML IH SCH (16:00)
--- NOTE | 2017-12-01 21:03 | Internal Med Progress Note ---
Date of Encounter: 12/01/17 Time of Encounter: 14:47 - Assessment and plan (1) COPD exacerbation Current Visit: Yes Status: Acute Assessment and plan: Continue nebs and supplemental O2; wean as tolerated. Continue solumedrol 80 mg Q6H; consider starting to wean tomorrow if continued improvement. Continue home COPD medications per patient request. Continue to monitor closely. Palliative care consulted for end stage COPD; appreciate input. (2) Acute on chronic respiratory failure with hypoxia Current Visit: Yes Status: Acute Assessment and plan: Continue supplemental O2 PRN; wean as tolerated. Treat COPD as per above. (3) Anxiety and depression Current Visit: Yes Status: Chronic Assessment and plan: Continue home scheduled xanax. Patient refused celexa. Will have her follow up with PCP and psychiatrist for further management as outpatient. (4) Severe protein-calorie malnutrition Current Visit: Yes Status: Chronic Assessment and plan: Nutrition consulted; appreciate input. Continue home supplemental shakes. (5) Smoking Current Visit: Yes Status: Chronic Assessment and plan: Counseled on smoking cessation. Not interested in quitting at this time. (6) Oral thrush Current Visit: Yes Status: Acute Assessment and plan: Continue nystatin swish and swallow. (7) DVT prophylaxis Current Visit: Yes Status: Acute Assessment and plan: Continue lovenox 40 mg SQ QD. - Time Spent With Patient Total time spent is greater than 50% in coordination of care (as documented) at patient's floor/unit and/or counseling patient: 25 - 35 minutes - Subjective Interval history: Patient had no acute events overnight. She states that breathing is better today compared to yesterday, but still not back to baseline. She continues to have some anxiety, but ok when she gets her xanax. She refused celexa because she is afraid of becoming addicted. I counselled her on SSRIs. She has no other complaints. - Constitutional Vitals: Temp Pulse Resp BP Pulse Ox 98.8 F 94 18 154/91 90 12/01/17 19:31 12/01/17 19:31 12/01/17 19:31 12/01/17 19:31 12/01/17 19:31 General appearance: Present: cooperative, A&O X 3, no acute distress, answers questions appropriately - Respiratory Respiratory exam: Absent: accessory muscle use, rales, rhonchi Additional comments: Mildly labored WOB, coarse breath sounds with rare intermittent wheeze bilaterally - Cardiovascular Cardiovascular exam: Present: RRR, +S1, +S2. Absent: diastolic murmur, gallop, rubs, systolic murmur Additional comments: No BLE edema - GI/Abdominal GI/Abdominal exam: Present: normal bowel sounds, soft. Absent: distended, hepatomegaly, mass, splenomegaly, tenderness - Psychiatric Psychiatric exam: Present: normal affect, normal mood. Absent: agitated, anxious, depressed - Skin Skin exam: Present: dry, intact, warm. Absent: cyanosis, rash Internal Medicine: Result - Labs CBC & Chem 7: 12/01/17 04:07 12/01/17 04:07 Labs: Short CBC 12/01/17 Range/Units 04:07 WBC 6.7 (4.3-11.1) K/mcL Hgb 13.5 D (11.5-15.4) g/dL Hct 42.8 (35.3-44.9) % Plt Count 343 (140-400) K/mcL Neutrophils # 6.0 (1.6-8.9) K/mcL BMP 12/01/17 04:07 Sodium 139 Potassium 4.4 Chloride 95 L Carbon Dioxide 38 H BUN 20 Creatinine 0.44 L Glucose 121 H Calcium 9.9 - ABG Interpretation ABG results: ABG ABG pH 7.36 pH Units (7.32-7.45) 11/29/17 05:33 ABG pCO2 70 mmHg (35-45) H* 11/29/17 05:33 ABG pO2 54 mmHg (85-104) L 11/29/17 05:33 ABG O2 Saturation 84 % (95-98) L 11/29/17 05:33 Consult Discharge Plan - Plan Referrals: Arley Jo CNP [Advanced Practice Nurse] - 12/08/17 1:00 pm ([facility] seeing patients)
[2017-12-01] MEDS: Sennosides/Docusate Sodium TABLET PO SCH (21:37)
[2017-12-02] MEDS: Ipratropium/Albuterol Neb 3 ML IH SCH ×3 (03:51→11:11)
[2017-12-02] MEDS: *HR* Enoxaparin 40 MG/0.4 ML SYRINGE SQ SCH (06:38)
[2017-12-02] MEDS: methylPREDNISolone 125 MG/2 ML VIAL IVP SCH ×2 (06:39→12:29)
[2017-12-02] MEDS: Budesonide Neb 0.5 MG/2 ML IH SCH (07:18)
[2017-12-02] MEDS: Sennosides/Docusate Sodium TABLET PO SCH ×2 (09:16→19:57)
[2017-12-02] MEDS: Nystatin SUSP 5 ML UD.LIQ PO SCH ×4 (09:16→19:56)
[2017-12-02] MEDS: ALPRAZolam 1 MG TABLET PO SCH ×4 (09:17→19:56)
--- NOTE | 2017-12-02 09:49 | Palliative Progress Note ---
Date of Encounter: 12/02/17 Time of Encounter: 07:15 - Assessment and plan (1) COPD exacerbation Current Visit: Yes Status: Acute Assessment and plan: Acutely short of breath. Patient doing much better after being on BiPAP and getting breathing treatment lungs still sound terrible. Plan per hospitalist team (2) Constipation Current Visit: No Status: Acute Assessment and plan: Have placed patient on a bowel regimen as she is not having bowel movements like she does at home, I am concerned about her trying to strain at stool with her lung sounding as bad as they do. Have started bowel regimen. Continue to watch Qualifiers: Constipation type: unspecified constipation type Qualified Code(s): K59.00 - Constipation, unspecified (3) Thrush, oral Current Visit: No Status: Resolved Assessment and plan: She reports this is feeling better. We will make an swish and swallow. Continue to watch (4) Goals of care, counseling/discussion Current Visit: Yes Status: Acute Assessment and plan: Patient had a long code discussion with my resident yesterday she wishes to remain a full code. Her goal of care is to return home. No changes as above. - Time Spent With Patient Total time spent is greater than 50% in coordination of care (as documented) at patient's floor/unit and/or counseling patient: - Subjective Interval history: Breathing is a worse this morning. Patient is actively short of breath. She also had a very bad night. She did refuse her BiPAP last night. After talking with her she has excepted the BiPAP on reexam approximate 945 the patient is doing much better. - Constitutional Vitals: Abnormal lab results MCHC 31.5 g/dL (31.6-35.5) L 12/01/17 04:07 RDW 15.0 % (11.5-14.5) H 12/01/17 04:07 Lymphocytes # 0.4 K/mcL (0.6-4.6) L 12/01/17 04:07 ABG pCO2 70 mmHg (35-45) H* 11/29/17 05:33 ABG pO2 54 mmHg (85-104) L 11/29/17 05:33 ABG HCO3 40 mEq/L (21-27) H 11/29/17 05:33 ABG Total CO2 42 mEq/L (20-26) H 11/29/17 05:33 ABG O2 Saturation 84 % (95-98) L 11/29/17 05:33 ABG Base Excess 11 mEq/L (-2 to 3) H 11/29/17 05:33 Chloride 95 mEq/L (98-107) L 12/01/17 04:07 Carbon Dioxide 38 mEq/L (23-29) H 12/01/17 04:07 Creatinine 0.44 mg/dL (0.60-1.20) L 12/01/17 04:07 BUN/Creatinine Ratio 45 (6-26) H 12/01/17 04:07 Glucose 121 mg/dL (70-105) H 12/01/17 04:07 POC Glucose 120 mg/dL (70-99) H 11/27/17 15:56 Total Bilirubin 0.2 mg/dL (0.3-1.0) L 11/28/17 03:18 AST 12 Units/L (13-39) L 11/28/17 03:18 Serum Total Protein 6.0 g/dL (6.4-8.9) L 11/28/17 03:18 Ur Specific [place] 1.028 (1.010-1.025) H 11/27/17 17:22 Urine Ketones Trace mg/dL (Negative) H 11/27/17 17:22 Ur Squamous Epith Cells Many per lpf (None-Few) H 11/27/17 17:22 Urine Opiates Screen Positive ng/mL (Wbsypj=278) H 11/27/17 17:22 U Benzodiazepines Scrn Positive ng/mL (Fnahcw=272) H 11/27/17 17:22 U Marijuana (THC) Screen Positive ng/mL (Cutoff = 50) H 11/27/17 17:22 General appearance: Present: no acute distress - Head Head exam: Present: atraumatic, normal inspection - ENT ENT exam: Present: mucous membranes moist (Thrush is noted in the back of the oropharynx) - Neck Neck exam: Present: tenderness (On left side) - Respiratory Respiratory exam: Present: decreased breath sounds - Cardiovascular Cardiovascular exam: Present: RRR, tachycardia - GI/Abdominal GI/Abdominal exam: Present: normal bowel sounds, soft. Absent: tenderness - Extremities Exam Extremities exam: Present: normal inspection. Absent: pedal edema, tenderness - Neurological Exam Neurological exam: Present: alert (On recheck, patient was not oriented on initial exam.) - Psychiatric Psychiatric exam: Present: agitated, anxious (This was apparent on initial exam on recheck at 0 945 the patient looks much better.) - Skin Skin exam: Present: dry, warm Palliative Quality Palliative Quality: Screen for Code Status: Yes, Screen for Goals of Care: Yes, Screen for Pain: Yes, If Pain Regimen Started, Initiate Bowel Regimen: Yes, Screen for Nausea/Vomitting: Yes - Labs CBC & Chem 7: 12/01/17 04:07 12/01/17 04:07 - ABG Interpretation ABG results: ABG ABG pH 7.36 pH Units (7.32-7.45) 11/29/17 05:33 ABG pCO2 70 mmHg (35-45) H* 11/29/17 05:33 ABG pO2 54 mmHg (85-104) L 11/29/17 05:33 ABG O2 Saturation 84 % (95-98) L 11/29/17 05:33 Consult Discharge Plan - Plan Referrals: Arley Jo CNP [Advanced Practice Nurse] - 12/08/17 1:00 pm ([facility] seeing patients)
[2017-12-02] MEDS: Acetylcysteine 10% 2 ML INHSOL IH SCH ×3 (11:12→20:50)
[2017-12-02 12:17] LABS: ABG Base Excess 14 mEq/L (-2 to 3); ABG HCO3 42 mEq/L (21-27); ABG Oxygen Saturation 88 % (95-98); ABG PCO2 61 mmHg (35-45); ABG PH 7.44 pH Units (7.32-7.45); ABG PO2 55 mmHg (85-104); ABG TCO2 44 mEq/L (20-26)
[2017-12-02] MEDS: *HR* HYDROcodone/Acet 5/325 mg TABLET PO PRN (12:37)
[2017-12-02] MEDS: Albuterol 2.5 MG/3 ML NEBULIZER IH SCH ×2 (15:26→20:48)
[2017-12-02 16:19] LABS: Bilirubin,Urine Negative (Negative); Blood,Urine Negative (Negative); Clarity,Urine Clear (Clear); Color,Urine Yellow (Yellow); Glucose,Urine (UA) Normal (Normal); Ketones,Urine Negative (Negative); Leukocyte Esterase,Urine Negative (Negative); Nitrite,Urine Negative (Negative); Protein,Urine Negative (Neg-Trace); Specific Gravity,Urine 1.025 (1.010-1.025); Urobilinogen,Urine Normal (Normal)
[2017-12-02] MEDS ORDERED: predniSONE 20 MG TABLET PO SCH (17:00)
[2017-12-02] MEDS: Beclomethasone 80mcg MDI IH SCH (20:48)
--- NOTE | 2017-12-02 21:55 | Internal Med Progress Note ---
Date of Encounter: 12/02/17 Time of Encounter: 15:37 - Assessment and plan (1) COPD exacerbation Current Visit: Yes Status: Acute Assessment and plan: Improving. Changed completely to her home COPD regimen today per patient and daughter request. Switch solumedrol to prednisone 40 mg TID; will taper slowly given high risk of decompensation; plan to send home with long taper tomorrow if stay stable overnight and with good respirations in the AM. Continue to monitor closely. Palliative care consulted for end stage COPD; appreciate input. (2) Acute on chronic respiratory failure with hypoxia Current Visit: Yes Status: Acute Assessment and plan: Continue supplemental O2 PRN; wean as tolerated. Looks to now be at home O2 requirement. Treat COPD as per above. (3) Anxiety and depression Current Visit: Yes Status: Chronic Assessment and plan: Continue home scheduled xanax. Patient took celexa today. She is agreeable to seeing psychiatrist. Consult psychiatry; appreciate input. Will have her follow up with PCP for further management as outpatient. (4) Severe protein-calorie malnutrition Current Visit: Yes Status: Chronic Assessment and plan: Nutrition consulted; appreciate input. Continue home supplemental shakes. (5) Smoking Current Visit: Yes Status: Chronic Assessment and plan: Counseled on smoking cessation. Not interested in quitting at this time. (6) Oral thrush Current Visit: Yes Status: Acute Assessment and plan: Continue nystatin swish and swallow. (7) DVT prophylaxis Current Visit: Yes Status: Acute Assessment and plan: Continue lovenox 40 mg SQ QD. - Time Spent With Patient Total time spent is greater than 50% in coordination of care (as documented) at patient's floor/unit and/or counseling patient: Greater than 35 minutes - Subjective Interval history: Patient had an issue with her nebulizer treatments last night. She states that she was unable to get her duoneb treatment every 4 hours. At home, she takes it every 4 hours. I explained that she did have Q2H albuterol nebs if needed in between her duonebs. I have changed her now to albuterol nebs Q4H scheduled , just like she takes at home. She is happy with this. I have also restarted all her home COPD medications just like she takes at home. She states that her breathing is very good today. She continues to have some anxiety, but ok when she gets her xanax. She is agreeable to see a psychiatrist while here to help better control her anxiety. She denies chest pain, SOB, fever, chills, nausea, vomiting, or abdominal pain. She has no other complaints. I had long conversation with patient's daughter this evening. We discussed goals of care, and I addressed all of her concerns. We are all on the same page in regards to resuming all of patient's home COPD regimen, and plan for discharge home tomorrow if she does well overnight. Daughter voiced understanding and agreement with plan. - Constitutional Vitals: Temp Pulse Resp BP Pulse Ox 98.9 F 82 17 144/79 90 12/02/17 19:51 12/02/17 19:51 12/02/17 19:51 12/02/17 19:51 12/02/17 19:51 General appearance: Present: cooperative, A&O X 3, no acute distress, answers questions appropriately - Respiratory Respiratory exam: Absent: accessory muscle use, rales, rhonchi, wheezes Additional comments: Mildly labored WOB, coarse breath sounds bilaterally - Cardiovascular Cardiovascular exam: Present: RRR, +S1, +S2. Absent: diastolic murmur, gallop, rubs, systolic murmur Additional comments: No BLE edema - GI/Abdominal GI/Abdominal exam: Present: normal bowel sounds, soft. Absent: distended, hepatomegaly, mass, splenomegaly, tenderness - Psychiatric Psychiatric exam: Present: normal affect, normal mood. Absent: agitated, anxious, depressed - Skin Skin exam: Present: dry, intact, warm. Absent: cyanosis, rash Internal Medicine: Result - Labs CBC & Chem 7: 12/01/17 04:07 12/01/17 04:07 Labs: Urine 12/02/17 Range/Units 16:09 Urine Color Yellow (Yellow) Urine Clarity Clear (Clear) Urine pH 6.0 (5.0-8.0) pH Units Ur Specific [place] 1.025 (1.010-1.025) Urine Protein Negative (Neg-Trace) mg/dL Urine Glucose (UA) Normal (Normal) mg/dL - ABG Interpretation ABG results: ABG ABG pH 7.44 pH Units (7.32-7.45) 12/02/17 12:14 ABG pCO2 61 mmHg (35-45) H 12/02/17 12:14 ABG pO2 55 mmHg (85-104) L 12/02/17 12:14 ABG O2 Saturation 88 % (95-98) L 12/02/17 12:14 Consult Discharge Plan - Plan Referrals: Arley Jo, PROPERTY CUSTODIAN [Advanced Practice Nurse] - 12/08/17 1:00 pm ([facility] seeing patients)
[2017-12-03] MEDS: predniSONE 20 MG TABLET PO SCH ×4 (00:08→17:21)
[2017-12-03] MEDS: Albuterol 2.5 MG/3 ML NEBULIZER IH SCH ×5 (00:15→15:13)
[2017-12-03] MEDS ORDERED: ALPRAZolam 0.5 MG TABLET PO ONE (03:58)
[2017-12-03] MEDS: *HR* Enoxaparin 40 MG/0.4 ML SYRINGE SQ SCH (07:01)
[2017-12-03] MEDS: Beclomethasone 80mcg MDI IH SCH (07:25)
[2017-12-03] MEDS: Sennosides/Docusate Sodium TABLET PO SCH (09:14)
[2017-12-03] MEDS: ALPRAZolam 1 MG TABLET PO SCH ×3 (09:14→17:22)
[2017-12-03] MEDS: Nystatin SUSP 5 ML UD.LIQ PO SCH ×3 (09:14→17:22)
[2017-12-03] MEDS: *HR* HYDROcodone/Acet 5/325 mg TABLET PO PRN ×2 (09:17→17:22)
--- NOTE | 2017-12-03 09:56 | Palliative Progress Note ---
<Deep Montiel - Last Filed: 12/03/17 09:48> Date of Encounter: 12/03/17 Time of Encounter: 07:40 - Assessment and plan (1) COPD exacerbation Current Visit: Yes Status: Acute Assessment and plan: Breathing improved from yesterday, on 4L via nasal cannula. Patient refused BiPAP. Plan for hospitalist team. (2) Acute on chronic respiratory failure with hypoxia Current Visit: Yes Status: Acute (3) Anxiety and depression Current Visit: Yes Status: Chronic Assessment and plan: Daughter notes that patient takes Xanax Q4H at home and that she feels patient' s breathing has been worse at night here as her anxiety is not well controlled. Currently receiving Xanax 1mg PO QID. Management per hospitalist team. (4) Constipation Current Visit: No Status: Acute Assessment and plan: Last BM reported on 11/28/17. Bowel Regimen with Senna. Patient notes she using Colace at home. Will continue to monitor. This should not prevent discharge. Qualifiers: Constipation type: unspecified constipation type Qualified Code(s): K59.00 - Constipation, unspecified (5) Goals of care, counseling/discussion Current Visit: Yes Status: Acute Assessment and plan: Patient had a long code discussion on 12/01/17, she wishes to remain a full code. Her goal of care is to return home. No changes as above. - Time Spent With Patient Total time spent is greater than 50% in coordination of care (as documented) at patient's floor/unit and/or counseling patient: - Subjective Interval history: Patient seen and examined at bedside, patient's daughter, Haley present. Daughter notes that patient had a difficult night with shortness of breath and anxiety. Patient not wanting to use BiPAP overnight. Patient notes she feels better this morning.Per patient and daughter they are planning for discharge today with homehealth. Patient notes that she has not had a bowel movement. - Constitutional Vitals: Abnormal lab results MCHC 31.5 g/dL (31.6-35.5) L 12/01/17 04:07 RDW 15.0 % (11.5-14.5) H 12/01/17 04:07 Lymphocytes # 0.4 K/mcL (0.6-4.6) L 12/01/17 04:07 ABG pCO2 61 mmHg (35-45) H 12/02/17 12:14 ABG pO2 55 mmHg (85-104) L 12/02/17 12:14 ABG HCO3 42 mEq/L (21-27) H 12/02/17 12:14 ABG Total CO2 44 mEq/L (20-26) H 12/02/17 12:14 ABG O2 Saturation 88 % (95-98) L 12/02/17 12:14 ABG Base Excess 14 mEq/L (-2 to 3) H 12/02/17 12:14 Chloride 95 mEq/L (98-107) L 12/01/17 04:07 Carbon Dioxide 38 mEq/L (23-29) H 12/01/17 04:07 Creatinine 0.44 mg/dL (0.60-1.20) L 12/01/17 04:07 BUN/Creatinine Ratio 45 (6-26) H 12/01/17 04:07 Glucose 121 mg/dL (70-105) H 12/01/17 04:07 POC Glucose 120 mg/dL (70-99) H 11/27/17 15:56 Total Bilirubin 0.2 mg/dL (0.3-1.0) L 11/28/17 03:18 AST 12 Units/L (13-39) L 11/28/17 03:18 Serum Total Protein 6.0 g/dL (6.4-8.9) L 11/28/17 03:18 Ur Squamous Epith Cells Many per lpf (None-Few) H 11/27/17 17:22 Urine Opiates Screen Positive ng/mL (Igpisy=194) H 11/27/17 17:22 U Benzodiazepines Scrn Positive ng/mL (Mhakcs=339) H 11/27/17 17:22 U Marijuana (THC) Screen Positive ng/mL (Cutoff = 50) H 11/27/17 17:22 General appearance: Present: no acute distress, thin - Head Head exam: Present: atraumatic, normal inspection - ENT ENT exam: Present: mucous membranes moist - Neck Neck exam: Present: tenderness (on left side) - Respiratory Respiratory exam: Present: wheezes (diffuse). Absent: accessory muscle use, rales, respiratory distress, rhonchi, stridor - Cardiovascular Cardiovascular exam: Present: RRR - GI/Abdominal GI/Abdominal exam: Present: normal bowel sounds, soft. Absent: tenderness - Extremities Exam Extremities exam: Present: normal inspection. Absent: pedal edema, tenderness - Neurological Exam Neurological exam: Present: alert, oriented X3 - Psychiatric Psychiatric exam: Present: normal affect, normal mood - Skin Skin exam: Present: dry, warm Palliative Quality Palliative Quality: Screen for Code Status: Yes, Screen for Goals of Care: Yes, Screen for Pain: Yes, If Pain Regimen Started, Initiate Bowel Regimen: Yes, Screen for Nausea/Vomitting: Yes - Labs CBC & Chem 7: 12/01/17 04:07 12/01/17 04:07 Labs: Laboratory Results - last 24 hr 12/02/17 12/02/17 12:14 16:09 ABG pH 7.44 ABG pCO2 61 H ABG pO2 55 L ABG HCO3 42 H ABG Total CO2 44 H ABG O2 Saturation 88 L ABG Base Excess 14 H O2 Delivery Device Cannula Inspired O2 4.0 Urine Color Yellow Urine Clarity Clear Urine pH 6.0 Ur Specific [place] 1.025 Urine Protein Negative Urine Glucose (UA) Normal Urine Ketones Negative Urine Blood Negative Urine Nitrite Negative Urine Bilirubin Negative Urine Urobilinogen Normal Ur Leukocyte Esterase Negative Ur Culture Indicated? NO - ABG Interpretation ABG results: ABG ABG pH 7.44 pH Units (7.32-7.45) 12/02/17 12:14 ABG pCO2 61 mmHg (35-45) H 12/02/17 12:14 ABG pO2 55 mmHg (85-104) L 12/02/17 12:14 ABG O2 Saturation 88 % (95-98) L 12/02/17 12:14 Consult Discharge Plan - Plan Referrals: Arley Jo, [facility]ALD [Advanced Practice Nurse] - 12/08/17 1:00 pm ([facility] seeing patients) <Manoj Flores - Last Filed: 12/03/17 11:12> Date of Encounter: 12/03/17 - Assessment and plan (1) COPD exacerbation Current Visit: Yes Status: Acute (2) Constipation Current Visit: No Status: Acute Qualifiers: Constipation type: unspecified constipation type Qualified Code(s): K59.00 - Constipation, unspecified (3) Thrush, oral Current Visit: No Status: Resolved (4) Goals of care, counseling/discussion Current Visit: Yes Status: Acute - Time Spent With Patient Total time spent is greater than 50% in coordination of care (as documented) at patient's floor/unit and/or counseling patient: - Constitutional Vitals: Abnormal lab results MCHC 31.5 g/dL (31.6-35.5) L 12/01/17 04:07 RDW 15.0 % (11.5-14.5) H 12/01/17 04:07 Lymphocytes # 0.4 K/mcL (0.6-4.6) L 12/01/17 04:07 ABG pCO2 61 mmHg (35-45) H 12/02/17 12:14 ABG pO2 55 mmHg (85-104) L 12/02/17 12:14 ABG HCO3 42 mEq/L (21-27) H 12/02/17 12:14 ABG Total CO2 44 mEq/L (20-26) H 12/02/17 12:14 ABG O2 Saturation 88 % (95-98) L 12/02/17 12:14 ABG Base Excess 14 mEq/L (-2 to 3) H 12/02/17 12:14 Chloride 95 mEq/L (98-107) L 12/01/17 04:07 Carbon Dioxide 38 mEq/L (23-29) H 12/01/17 04:07 Creatinine 0.44 mg/dL (0.60-1.20) L 12/01/17 04:07 BUN/Creatinine Ratio 45 (6-26) H 12/01/17 04:07 Glucose 121 mg/dL (70-105) H 12/01/17 04:07 POC Glucose 120 mg/dL (70-99) H 11/27/17 15:56 Total Bilirubin 0.2 mg/dL (0.3-1.0) L 11/28/17 03:18 AST 12 Units/L (13-39) L 11/28/17 03:18 Serum Total Protein 6.0 g/dL (6.4-8.9) L 11/28/17 03:18 Ur Squamous Epith Cells Many per lpf (None-Few) H 11/27/17 17:22 Urine Opiates Screen Positive ng/mL (Ylpyjw=154) H 11/27/17 17:22 U Benzodiazepines Scrn Positive ng/mL (Jxsiax=624) H 11/27/17 17:22 U Marijuana (THC) Screen Positive ng/mL (Cutoff = 50) H 11/27/17 17:22 - Attending Attestation I examined this patient and my medical decision-making was reviewed with the Resident Physician. I agree with the documented findings, disposition and treatment plan as described except to the extent set forth below. - Labs CBC & Chem 7: 12/01/17 04:07 12/01/17 04:07 Labs: Laboratory Results - last 24 hr 12/02/17 12/02/17 12:14 16:09 ABG pH 7.44 ABG pCO2 61 H ABG pO2 55 L ABG HCO3 42 H ABG Total CO2 44 H ABG O2 Saturation 88 L ABG Base Excess 14 H O2 Delivery Device Cannula Inspired O2 4.0 Urine Color Yellow Urine Clarity Clear Urine pH 6.0 Ur Specific [place] 1.025 Urine Protein Negative Urine Glucose (UA) Normal Urine Ketones Negative Urine Blood Negative Urine Nitrite Negative Urine Bilirubin Negative Urine Urobilinogen Normal Ur Leukocyte Esterase Negative Ur Culture Indicated? NO - ABG Interpretation ABG results: ABG ABG pH 7.44 pH Units (7.32-7.45) 12/02/17 12:14 ABG pCO2 61 mmHg (35-45) H 12/02/17 12:14 ABG pO2 55 mmHg (85-104) L 12/02/17 12:14 ABG O2 Saturation 88 % (95-98) L 12/02/17 12:14
[2017-12-03] MEDS ORDERED: Tiotropium 18 MCG inhalation IH SCH (10:00)
--- NOTE | 2017-12-03 14:10 | Consult Note ---
Date of Encounter: 12/03/17 Time of Encounter: 13:15 Assessment & Recommendation (1) Generalized anxiety disorder with panic attacks Current visit: Yes Status: Chronic Assessment & Recommendation: start escitalopram 5 mg for 5 days then 10 mg po am decrease xanax to 0.5 mg qid. out patient follow up with psyciatry and counselling History of Present Illness Patient: new to practice Requesting Physician: Beni Kurtz MD Reason for consult: anxiety History of present illness: Ms. Sharma is a 57 year old female was consulted today for severe anxiety and on 4 mg xanax a day with not much improvement. Patient was seen at her bedside she was pleasant at times SOB and cooperative and gave detailed history. She has anxiety for several years now and on Xanax for several years , she denies taking it more than prescribed but takes it regularly sometimes has to take early as anxiety high. Her anxiety is consistence and meets criteria for generalized anxiety and panic attacks, she is scared of , and lately has been afraid of dark, she sleeps with 2 candles on whole night across the room states i know it is dangerous with my oxygen so now kids have bought electric ones. SHe is mostly home, does not drive and has multiple fears. She denies paranoia but at times with increase anxiety she has seen thru window if someone was there. She denies any depressive s/s but is thinking about her mother and sister a lot , her mother dies at age of 58 , father at age of 62 , sister at age 57 and stated i am 57 , i know is process of life but i am scared. Her son is living with her and her daughter is also supportive. she is not suicidal/homicidal or psychotic. Past PSych She has long h/o anxiety but has not seen psychiatrist and is treated by PCP. Family h/o Mother had anxiety. Substance Use DEnies any but still a smoker even with End stage COPD. she is on Vicodin and taking benzo with it which can also impact her respiration . she had cut down to 6-7 cig/day and since inpatient has not smoked and planning to not smoke. A/P Generalized Anxiety Disorder. Panic Disorder can start escitalopram 5 mg po am for 5 days then 10 mg , which has less side effects and drug interactions than citalopram will recommend to decrease xanax to 0.5 mg qid and continue that till escitalopram is effective. recommend to make psychiatric and counselling appointment as out patient. Thank you for involving ume in your patients care. will sign off, can call prn CC: Beni Kurtz MD Past Med Surg Social Fam HX - Past Medical History Medical history: asthma, cancer, COPD, other - Past Psychiatric History Psychiatric history: Reports: anxiety Family psychiatric history: Yes Family History of Suicide: None - Past Surgical History Surgical History: other - Social History Smoking Status: Current every day smoker Smokeless Tobacco Status: No Alcohol use: unknown Drug use: marijuana - Family History Mother Living Status: Hx Family Respiratory Disorders: Yes Father Living Status: Hx Family Cardiac Disorders: Yes (heart valve surgery) Hx Family Respiratory Disorders: Yes Medications & Allergies Albuterol Sulfate [Albuterol Inhaler] 1 puff IH Q4HR PRN 10/22/15 [History] Tiotropium [Spiriva] 18 mcg IH DAILY 10/22/15 [History] Carisoprodol [Soma] 350 mg PO 1-2XD PRN 10/29/15 [History] Meloxicam [Mobic] 15 mg PO DAILY PRN 10/29/15 [History] Montelukast [Singulair] 10 mg PO DAILY 10/29/15 [History] traZODone [TraZODone] 50 mg PO HS PRN 10/29/15 [History] Albuterol Neb [Proventil Neb] 3 ml IH Q4HR #0 11/06/15 [Rx] ALPRAZolam [Xanax 1 MG Tablet] 1 mg PO QID #20 10/13/16 [Rx] Omeprazole 20 mg PO DAILY #30 tablet. 10/13/16 [Rx] Fluticasone Propionate [Flovent Hfa] 220 mcg IH DAILY 12/10/16 [History] Lactose-Reduced Food [Boost] 237 ml PO TID 12/10/16 [History] HYDROcodone/Acet 5/325 mg [[place] 5-325 mg] 1 tab PO Q4HR PRN #20 tablet [Rx] Oxygen 4 l NS CONT #0 12/15/16 [Rx] 3 Allergy/AdvReac Type Severity Reaction Status Date / Time ketorolac [From Toradol] Allergy Hallucinati Verified 11/22/17 12:49 ng ibuprofen AdvReac Gastrointestinal Verified 11/22/17 12:49 Upset naproxen AdvReac Nausea Verified 11/22/17 12:49 Psychiatry Exam - Constitutional Vitals: Temp Pulse Resp BP Pulse Ox 98.9 F 75 17 140/80 90 12/03/17 10:56 12/03/17 10:56 12/03/17 10:56 12/03/17 10:56 12/03/17 10:56 General appearance: thin - Musculoskeletal Station: other - Psychiatric Patient Orientation: Yes Person, Yes Time, Yes Place Level of alertness: Alert Behavior: cooperative, anxious Eye Contact: Maintains Eye Contact Mood Description: Anxious Affect description: congruent with mood Speech Volume: Soft/Quiet Speech pattern: coherent Language & Vocabulary: consistent with education Thought Process: Linear, Goal Oriented Thought Content: No Suicidal ideation, No Homicidal ideation, No Overt delusions Perceptual Disturbances: No Auditory hallucinations, No Visual hallucinations Attention Span Ability: Capable of Focused Attention Memory Description: Grossly Intact Patient Reliability: Reliable Historian Fund of knowledge: Yes abstraction ability, Yes aware of current events Intelligence Estimate: Average Judgment: Fair Insight: Partial Results - Labs Labs: Laboratory Last Values WBC 6.7 K/mcL (4.3-11.1) 12/01/17 04:07 RBC 4.41 M/mcL (3.82-4.97) 12/01/17 04:07 Hgb 13.5 g/dL (11.5-15.4) D 12/01/17 04:07 Hct 42.8 % (35.3-44.9) 12/01/17 04:07 MCV 97.1 fL (83.0-100.0) 12/01/17 04:07 MCH 30.6 pg (28.0-33.3) 12/01/17 04:07 MCHC 31.5 g/dL (31.6-35.5) L 12/01/17 04:07 RDW 15.0 % (11.5-14.5) H 12/01/17 04:07 Plt Count 343 K/mcL (140-400) 12/01/17 04:07 MPV 10.2 fL (9.4-12.4) 12/01/17 04:07 Immature Gran % 0.9 % (0-4) 12/01/17 04:07 Seg Neutrophils % 88.6 % 12/01/17 04:07 Lymphocytes % 5.2 % 12/01/17 04:07 Monocytes % 5.2 % 12/01/17 04:07 Eosinophils % 0.0 % 12/01/17 04:07 Basophils % 0.1 % 12/01/17 04:07 Neutrophils # 6.0 K/mcL (1.6-8.9) 12/01/17 04:07 Lymphocytes # 0.4 K/mcL (0.6-4.6) L 12/01/17 04:07 Monocytes # 0.4 K/mcL (0.0-1.3) 12/01/17 04:07 Eosinophils # 0.0 K/mcL (0.0-0.6) 12/01/17 04:07 Basophils # 0.0 K/mcL (0.0-0.2) 12/01/17 04:07 Sample Site R Radial 11/29/17 05:33 ABG pH 7.44 pH Units (7.32-7.45) 12/02/17 12:14 ABG pCO2 61 mmHg (35-45) H 12/02/17 12:14 ABG pO2 55 mmHg (85-104) L 12/02/17 12:14 ABG HCO3 42 mEq/L (21-27) H 12/02/17 12:14 ABG Total CO2 44 mEq/L (20-26) H 12/02/17 12:14 ABG O2 Saturation 88 % (95-98) L 12/02/17 12:14 ABG Base Excess 14 mEq/L (-2 to 3) H 12/02/17 12:14 Christopher Test Positive 11/29/17 05:33 O2 Delivery Device Cannula 12/02/17 12:14 Inspired O2 4.0 (1-15=lpm [id number]=%) 12/02/17 12:14 Sodium 139 mEq/L (136-145) 12/01/17 04:07 Potassium 4.4 mEq/L (3.5-5.1) 12/01/17 04:07 Chloride 95 mEq/L (98-107) L 12/01/17 04:07 Carbon Dioxide 38 mEq/L (23-29) H 12/01/17 04:07 BUN 20 mg/dL (6-20) 12/01/17 04:07 Creatinine 0.44 mg/dL (0.60-1.20) L 12/01/17 04:07 Est GFR ( Amer) > 60 (> 60) 12/01/17 04:07 Est GFR (Non-Af Amer) > 60 (> 60) 12/01/17 04:07 BUN/Creatinine Ratio 45 (6-26) H 12/01/17 04:07 Glucose 121 mg/dL (70-105) H 12/01/17 04:07 POC Glucose 120 mg/dL (70-99) H 11/27/17 15:56 Calculated Osmolality 292 (280-300) 12/01/17 04:07 Lactic Acid 0.6 mmol/L (0.5-2.2) 11/27/17 16:00 Calcium 9.9 mg/dL (8.6-10.3) 12/01/17 04:07 Phosphorus 4.0 mg/dL (2.7-4.5) 11/27/17 15:59 Magnesium 2.0 mg/dL (1.6-2.6) 11/28/17 03:18 Total Bilirubin 0.2 mg/dL (0.3-1.0) L 11/28/17 03:18 Direct Bilirubin 0.1 mg/dL (0.0-0.2) 11/27/17 15:59 Indirect Bilirubin 0.2 mg/dL (0.0-1.2) 11/27/17 15:59 AST 12 Units/L (13-39) L 11/28/17 03:18 ALT 13 Units/L (7-52) 11/28/17 03:18 Alkaline Phosphatase 81 Units/L (34-104) 11/28/17 03:18 Ammonia 37 mcmol/L (16-53) 11/27/17 16:37 Creatine Kinase 36 Units/L (30-223) 11/27/17 15:59 Troponin I < 0.03 ng/mL (< 0.04) 11/29/17 05:45 B-Natriuretic Peptide 65 pg/mL (Less than 100) 11/27/17 16:00 Serum Total Protein 6.0 g/dL (6.4-8.9) L 11/28/17 03:18 Albumin 3.5 g/dL (3.5-5.7) 11/28/17 03:18 Globulin 2.5 g/dL (2.4-3.5) 11/28/17 03:18 Albumin/Globulin Ratio 1.4 (1.1-2.2) 11/28/17 03:18 Lipase 18 Units/L (11-82) 11/27/17 15:59 Urine Color Yellow (Yellow) 12/02/17 16:09 Urine Clarity Clear (Clear) 12/02/17 16:09 Urine pH 6.0 pH Units (5.0-8.0) 12/02/17 16:09 Ur Specific [place] 1.025 (1.010-1.025) 12/02/17 16:09 Urine Protein Negative mg/dL (Neg-Trace) 12/02/17 16:09 Urine Glucose (UA) Normal mg/dL (Normal) 12/02/17 16:09 Urine Ketones Negative mg/dL (Negative) 12/02/17 16:09 Urine Blood Negative (Negative) 12/02/17 16:09 Urine Nitrite Negative (Negative) 12/02/17 16:09 Urine Bilirubin Negative (Negative) 12/02/17 16:09 Urine Urobilinogen Normal mg/dL (Normal) 12/02/17 16:09 Ur Leukocyte Esterase Negative (Negative) 12/02/17 16:09 Urine Microscopic RBC 0-3 per hpf (0-3) 11/27/17 17:22 Urine Microscopic WBC 0-3 per hpf (0-3) 11/27/17 17:22 Ur Squamous Epith Cells Many per lpf (None-Few) H 11/27/17 17:22 Urine Bacteria None Seen per hpf (None-Few) 11/27/17 17:22 Hyaline Casts None Seen per lpf (None-Few) 11/27/17 17:22 Ur Culture Indicated? NO (NO) 12/02/17 16:09 Urine Opiates Screen Positive ng/mL (Kaldpv=706) H 11/27/17 17:22 Ur Barbiturates Screen Negative ng/mL (Czizoo=278) 11/27/17 17:22 Ur Phencyclidine Scrn Negative ng/mL (Cutoff=25) 11/27/17 17:22 Ur Amphetamines Screen Negative ng/mL (Kplmbn=6434) 11/27/17 17:22 U Benzodiazepines Scrn Positive ng/mL (Uayomv=270) H 11/27/17 17:22 Urine Cocaine Screen Negative ng/mL (Cutoff= 300) 11/27/17 17:22 U Marijuana (THC) Screen Positive ng/mL (Cutoff = 50) H 11/27/17 17:22 Ethyl Alcohol < 10 mg/dL (Less than 10) 11/27/17 15:59 Specimen Rejected Hemolyzed 11/27/17 16:27 Consult Discharge Plan - Plan Referrals: Arley Jo, [facility]WALD [Advanced Practice Nurse] - 12/08/17 1:00 pm ([facility] seeing patients)
[2017-12-03 15:05] VITALS: BP 117/72
--- NOTE | 2017-12-03 15:46 | Discharge Summary ---
- NOTES TO OUTPATIENT PROVIDER Notes to Outpatient Provider: Follow up with PCP in 2-3 days after discharge. Anxiety can be addressed at that time. Adjust lexapro dose and/or refer to psychiatrist as needed. Follow up with pulmonology as directed. Date of Encounter: 12/03/17 Time of Encounter: 13:57 - Discharge Diagnosis (1) COPD exacerbation Priority: Primary Status: Acute (2) Acute on chronic respiratory failure with hypoxia Priority: Secondary Status: Chronic (3) Anxiety and depression Priority: Secondary Status: Chronic (4) Severe protein-calorie malnutrition Priority: Secondary Status: Chronic (5) Smoking Priority: Secondary Status: Chronic (6) Oral thrush Priority: Secondary Status: Resolved (7) DVT prophylaxis Priority: Secondary Status: Acute Hospital course: Ms. Sharma is a 57 year old white female with PMH of end-stage COPD admitted for AMS and acute exacerbation of COPD. Patient was admitted to general medical floor. She was started on IV steroids and nebulizer treatments. Mental status improved with narcan, so home opioids were held. Home benzodiazepines were also held until she was more alert. Her respiratory status improved slowly over the next few days. She was weaned to her home O2 of 4L NC. Steroids were slowly tapered with improvement, and she will be discharged home with a long prednisone taper. Palliative care was consulted for end-stage COPD, and followed along. She stated that she had increased anxiety not fully controlled by her xanax. She was started on celexa, but refused to take it. Psychiatry was consulted, and they recommended discontinuing celexa, starting lexapro 5 mg QD, and lowering xanax dose to 0.5 mg QID. Patient is agreeable to starting lexapro, but will not changes her xanax dose. She will follow up with PCP in 2- 3 days after discharge. Adjustment to anxiolytics can be made at that time. She will keep follow up with pulmonology as directed. PT/OT evaluated her and recommended that she walk only with a walker and get home PT/OT. SW worked on getting her set up with home health with home PT/OT. Patient has met maximum benefit of this hospitalization and will be discharged home in stable condition. Discharge discussed with: patient, family, nurse, social work, case management, other (Pharmacist) - Time Spent with Patient Total time spent providing and/or coordinating discharge services: Greater than 30 minutes - Discharge Medications Prescriptions: Escitalopram [Lexapro] 5 mg PO DAILY 7 Days #7 tablet predniSONE [PredniSONE] See Taper PO DAILY 16 Days #40 tablet Sennosides/Docusate Sodium [Senna Plus] 1 each PO BID 7 Days #14 tablet Home Medications: Albuterol Sulfate [Albuterol Inhaler] 1 puff IH Q4HR PRN 10/22/15 [History] Tiotropium [Spiriva] 18 mcg IH DAILY 10/22/15 [History] Carisoprodol [Soma] 350 mg PO 1-2XD PRN 10/29/15 [History] Meloxicam [Mobic] 15 mg PO DAILY PRN 10/29/15 [History] Montelukast [Singulair] 10 mg PO DAILY 10/29/15 [History] traZODone [TraZODone] 50 mg PO HS PRN 10/29/15 [History] Albuterol Neb [Proventil Neb] 3 ml IH Q4HR #0 11/06/15 [Rx] ALPRAZolam [Xanax 1 MG Tablet] 1 mg PO QID #20 10/13/16 [Rx] Omeprazole 20 mg PO DAILY #30 tablet. 10/13/16 [Rx] Fluticasone Propionate [Flovent Hfa] 220 mcg IH DAILY 12/10/16 [History] Lactose-Reduced Food [Boost] 237 ml PO TID 12/10/16 [History] HYDROcodone/Acet 5/325 mg [[place] 5-325 mg] 1 tab PO Q4HR PRN #20 tablet [Rx] Oxygen 4 l NS CONT #0 12/15/16 [Rx] Escitalopram [Lexapro] 5 mg PO DAILY 7 Days #7 tablet 12/03/17 [Rx] Sennosides/Docusate Sodium [Senna Plus] 1 each PO BID 7 Days #14 tablet [Rx] predniSONE [PredniSONE] See Taper PO DAILY 16 Days #40 tablet 12/03/17 [Rx] Allergies/Adverse Reactions: 3 Allergy/AdvReac Type Severity Reaction Status Date / Time ketorolac [From Toradol] Allergy Hallucinati Verified 11/22/17 12:49 ng ibuprofen AdvReac Gastrointestinal Verified 11/22/17 12:49 Upset naproxen AdvReac Nausea Verified 11/22/17 12:49 Date of admission: 11/27/17 21:00 Primary care physician: Rachel Velez CNP Consults: 11/27/17 21:04 Consult to Pulmonology [CONS] Routine Consulting Provider: [facility] [place] Reason for Consult: known to service copd exercebation Call Completed: No 11/28/17 07:14 Consult to [employer] [CONS] Routine Reason for SW Consult: poss d/c needs for home, lack of support 11/29/17 12:05 Consult to Palliative Care [CONS] Routine Comment: Consulting Provider: Palliative Care Raisa Reason for Consult: lung cancer Time Notified: 12:06 Call Completed: Yes 11/30/17 18:12 Consult to Nutrition [CONS] Routine Comment: Please determine nutritional needs. Consulting Provider: NUTRITION Reason for Dietary Consult: PO Supplementation Other:: Please determine nutritional needs. 12/02/17 13:30 Consult to Psychiatry [CONS] Stat Consulting Provider: Psychiatry Raisa Reason for Consult: anxiety Call Completed: Yes 12/02/17 18:21 Consult to Physical Therapy [CONS] Routine Comment: Evaluate, develop and implement POC Reason for Consult: eval for home needs Does patient have active BEDREST order?: No Is patient medically & hemodynamically stable?: Yes Patient assessed for mobility or mobilized this visit?: No OT [Consult to Occupational Therapy] [CONS] Routine Comment: Evaluate, develop and implement POC Reason for Consult: eval for home medications Does patient have active BEDREST order?: No Is patient medically & hemodynamically stable?: Yes Patient assessed for mobility or mobilized this visit?: No Discharging clinician: Wade King Anticipated date of discharge: 12/03/17 - Constitutional Vitals: Temp Pulse Resp BP Pulse Ox 98.4 F 91 18 117/72 92 12/03/17 15:04 12/03/17 15:04 12/03/17 15:17 12/03/17 15:04 12/03/17 15:17 General appearance: Present: cooperative, A&O X 3, no acute distress, answers questions appropriately - Respiratory Respiratory exam: Absent: accessory muscle use, rales, rhonchi, wheezes Additional comments: Normal WOB, coarse breath sounds bilaterally - Cardiovascular Cardiovascular exam: Present: diastolic murmur, gallop, RRR, rubs, +S1, +S2, systolic murmur Additional comments: No BLE edema - GI/Abdominal GI/Abdominal exam: Present: normal bowel sounds, soft. Absent: distended, hepatomegaly, mass, splenomegaly, tenderness - Psychiatric Psychiatric exam: Absent: agitated, anxious, depressed, normal affect, normal mood - Skin Skin exam: Present: dry, intact, warm. Absent: cyanosis, rash - Patient Status Disposition: Home Health Service Condition: Fair Functional capacity at discharge: uses cane/walker Overall status at discharge: patient is progressing back to baseline - Discharge Instructions Follow Up With: Arley Jo CNP [Advanced Practice Nurse] - 12/08/17 1:00 pm (TOOK [facility] Velez place seeing patients) Additional Instructions: Follow up with PCP in 2-3 days after discharge. Anxiety can be addressed at that time. Adjust lexapro dose and/or refer to psychiatrist as needed. Follow up with pulmonology as directed. - Diet and Activity Activity: as per physical therapy Diet: advance to your usual diet, regular diet
--- NOTE | 2017-12-03 16:07 | Physician Discharge Referral ---
Home Health/Hosp Referral Info Transfer to: Home Health Provider in Charge Post Discharge: PCP - Diagnosis (1) COPD exacerbation Priority: Primary Status: Acute (2) Acute on chronic respiratory failure with hypoxia Priority: Secondary Status: Chronic (3) Anxiety and depression Priority: Secondary Status: Chronic (4) Severe protein-calorie malnutrition Priority: Secondary Status: Chronic (5) Smoking Priority: Secondary Status: Chronic (6) Oral thrush Priority: Secondary Status: Resolved (7) DVT prophylaxis Priority: Secondary Status: Acute - Respiratory Orders Oxygen / L per min (4L NC) Smoking Cessation: Smoking cessation has been advised. For more information, call the [place] Tobacco Quit Line at 1-748-LZIS-NOW. - Diet/Nutrition Diet/Nutrition Orders: Regular - Activity Activity: List: Per physical therapy - Services Needed Following services are medically necessary services: Nursing, Physical Therapy, Occupational Therapy - Transfer Medications Prescriptions: Escitalopram [Lexapro] 5 mg PO DAILY 7 Days #7 tablet predniSONE [PredniSONE] See Taper PO DAILY 16 Days #40 tablet Sennosides/Docusate Sodium [Senna Plus] 1 each PO BID 7 Days #14 tablet Home Medications: Albuterol Sulfate [Albuterol Inhaler] 1 puff IH Q4HR PRN 10/22/15 [History] Tiotropium [Spiriva] 18 mcg IH DAILY 10/22/15 [History] Carisoprodol [Soma] 350 mg PO 1-2XD PRN 10/29/15 [History] Meloxicam [Mobic] 15 mg PO DAILY PRN 10/29/15 [History] Montelukast [Singulair] 10 mg PO DAILY 10/29/15 [History] traZODone [TraZODone] 50 mg PO HS PRN 10/29/15 [History] Albuterol Neb [Proventil Neb] 3 ml IH Q4HR #0 11/06/15 [Rx] ALPRAZolam [Xanax 1 MG Tablet] 1 mg PO QID #20 10/13/16 [Rx] Omeprazole 20 mg PO DAILY #30 tablet. 10/13/16 [Rx] Fluticasone Propionate [Flovent Hfa] 220 mcg IH DAILY 12/10/16 [History] Lactose-Reduced Food [Boost] 237 ml PO TID 12/10/16 [History] HYDROcodone/Acet 5/325 mg [[place] 5-325 mg] 1 tab PO Q4HR PRN #20 tablet [Rx] Oxygen 4 l NS CONT #0 12/15/16 [Rx] Escitalopram [Lexapro] 5 mg PO DAILY 7 Days #7 tablet 12/03/17 [Rx] Sennosides/Docusate Sodium [Senna Plus] 1 each PO BID 7 Days #14 tablet [Rx] predniSONE [PredniSONE] See Taper PO DAILY 16 Days #40 tablet 12/03/17 [Rx] Allergies/Adverse Reactions: 3 Allergy/AdvReac Type Severity Reaction Status Date / Time ketorolac [From Toradol] Allergy Hallucinati Verified 11/22/17 12:49 ng ibuprofen AdvReac Gastrointestinal Verified 11/22/17 12:49 Upset naproxen AdvReac Nausea Verified 11/22/17 12:49 Certification: Further, I certify that my clinical findings support that this patient is homebound (i.e. absences from home require considerable and taxing effort and are for medical reasons or amish services or infrequently or short duration when for other reasons) because: end-stage COPD. Homebound Reason: Patient requires assistance of a person or device to safely leave home, Leaving home requires considerable and taxing effort due to condition, Severity of cardiac or pulmonary status limits activity tolerance Attestation: My signature below is to certify that this patient is under my care and that I, or nurse practitioner, or a physician's assistant education director working with me, has a face-to -face encounter with this patient.
== END 2017-12-03 18:59 | disposition home health service (06) | DRG 140 ==
LOC: 2ANU 15:48 → EMEROO 15:48 → 2ANU 21:21
PROVIDERS: ADMIT Internal Medicine Cardiovascular Disease; ATTEND Internal Medicine Cardiovascular Disease

== ENCOUNTER 2019-09-09 11:55 | Inpatient (IN) ==
[2019-09-09] MEDS ORDERED: Azithromycin 500 MG in 0.9 % Sodium Chloride 250 ML IVPB ONE (12:23)
[2019-09-09] MEDS ORDERED: cefTRIAXone 1,000 MG in Water for inj. (sterile) 10 ML IVP ONE (12:23)
[2019-09-09] MEDS ORDERED: Ipratropium/Albuterol Neb 3 ML IH ONE (12:26)
[2019-09-09] MEDS ORDERED: methylPREDNISolone 125 MG/2 ML VIAL IVP ONE (12:26)
[2019-09-09 12:37] LABS: Basophils % 0.3 %; Hemoglobin 14.6 g/dL (11.5-15.4); Immature Granulocytes % 0.4 % (0-4); Lymphocytes # 0.6 K/mcL (0.6-4.6); Lymphocytes % 3.9 %; Mean Corpuscular HGB Conc 32.4 g/dL (31.6-35.5); Mean Corpuscular Hemoglobin 30.5 pg (28.0-33.3); Mean Corpuscular Volume 94.1 fL (83.0-100.0); Mean Platelet Volume 10.4 fL (9.4-12.4); Monocytes # 1.4 K/mcL (0.0-1.3); Monocytes % 9.2 %; Neutrophils # 13.1 K/mcL (1.6-8.9); Platelet Count 296 K/mcL (140-400); Red Blood Count 4.78 M/mcL (3.82-4.97); Red Cell Distribution Width 15.4 % (11.5-14.5); Segmented Neutrophils % 86.2 %; White Blood Count 15.2 K/mcL (4.3-11.1)
[2019-09-09 12:40] LABS: INR 1.2; Prothrombin Time 13.5 Seconds (9.4-12.1)
[2019-09-09 12:42] LABS: Activated Partial Thrombo Time 35.9 Seconds (26.0-36.0)
[2019-09-09] MEDS ORDERED: Isovue-370 500 ML BOTTLE IVP ONE (12:49)
[2019-09-09] MEDS: 0.9 % Sodium Chloride 1,000 ML IVC SCH ×2 (12:52→14:02)
[2019-09-09 12:57] LABS: Alanine Aminotransferase 9 Units/L (7-52); Albumin 4.2 g/dL (3.5-5.7); Albumin/Globulin Ratio 1.3 (1.1-2.2); Alkaline Phosphatase 129 Units/L (34-104); Aspartate Amino Transferase 14 Units/L (13-39); BUN/Creatinine Ratio 15 (6-26); Bilirubin,Direct 0.1 mg/dL (0.0-0.2); Bilirubin,Indirect 0.2 mg/dL (0.0-1.0); Bilirubin,Total 0.3 mg/dL (0.3-1.0); Blood Urea Nitrogen 9 mg/dL (6-20); Carbon Dioxide 35 mEq/L (23-29); Chloride 91 mEq/L (98-107); Globulin 3.2 g/dL (2.4-3.5); Glucose 126 mg/dL (70-105); Magnesium 1.8 mg/dL (1.6-2.6); Osmolality,Calculated 280 (280-300); Potassium 4.3 mEq/L (3.5-5.1); Sodium 135 mEq/L (136-145); Total Protein 7.4 g/dL (6.4-8.9); Troponin I < 0.03 ng/mL (< 0.04); eGFR For African Americans > 60 (> 60); eGFR For Non-African Americans > 60 (> 60)
[2019-09-09] MEDS ORDERED: *HR* OxyCODONE/APAP 5/325 TABLET PO STA (13:43)
[2019-09-09 14:20] LABS: Bilirubin,Urine Negative (Negative); Blood,Urine Negative (Negative); Clarity,Urine Clear (Clear); Color,Urine Yellow (Yellow); Glucose,Urine (UA) Normal (Normal); Ketones,Urine Negative (Negative); Leukocyte Esterase,Urine Negative (Negative); Nitrite,Urine Negative (Negative); PH,Urine 6.5 pH Units (5.0-8.0); Protein,Urine Negative (Neg-Trace); Specific Gravity,Urine 1.016 (1.010-1.025); Urobilinogen,Urine Normal (Normal)
[2019-09-09] MEDS ORDERED: Acetaminophen 325 MG TABLET PO PRN (14:51)
[2019-09-09] MEDS ORDERED: Ondansetron ODT 4 MG TAB.RAPDIS SL PRN (14:51)
[2019-09-09] MEDS ORDERED: Naloxone 0.4 MG/ML INJ IVP PRN (14:51)
[2019-09-09] MEDS ORDERED: MOM Conc 10 ML UD.LIQ PO PRN (14:51)
[2019-09-09] MEDS ORDERED: 0.9 % Sodium Chloride 1,000 ML IVC ONE (14:51)
[2019-09-09] MEDS ORDERED: traZODone 50 MG TABLET PO PRN (14:56)
[2019-09-09] MEDS ORDERED: Carisoprodol 350 MG TABLET PO PRN (14:56)
[2019-09-09] MEDS ORDERED: OXYGEN NS SCH (15:00)
[2019-09-09] MEDS ORDERED: NON-FORMULARY MEDICATION 1 EACH EACH (Lactose-Reduced Food [Boost] 237 ML) PO SCH (15:00)
[2019-09-09] MEDS: Ipratropium/Albuterol Neb 3 ML IH SCH ×2 (15:32→22:39)
[2019-09-09] MEDS: ALPRAZolam 1 MG TABLET PO SCH ×2 (18:27→21:23)
[2019-09-09] MEDS: methylPREDNISolone 125 MG/2 ML VIAL IVP SCH (18:27)
[2019-09-09] MEDS: Carisoprodol 350 MG TABLET PO SCH ×2 (18:28→21:23)
[2019-09-09 19:57] LABS: Adenovirus Not Detected (Not Detect)
[2019-09-09 19:58] LABS: Bordetella Pertussis Not Detected (Not Detect); Chlamydophila pneumoniae Not Detected (Not Detect); Coronavirus 229E Not Detected (Not Detect); Coronavirus HKU1 DETECTED (Not Detect); Coronavirus NL63 Not Detected (Not Detect); Coronavirus OC43 Not Detected (Not Detect); Human Metapneumovirus Not Detected (Not Detect); Human Rhinovirus/Enterovirus Not Detected (Not Detect); Influenza A Subtype 2009 H1 Not Detected (Not Detect); Influenza B Not Detected (Not Detect); Mycoplasma pneumoniae Not Detected (Not Detect); Parainfluenza Virus 1 Not Detected (Not Detect); Parainfluenza Virus 2 Not Detected (Not Detect); Parainfluenza Virus 3 Not Detected (Not Detect); Parainfluenza Virus 4 Not Detected (Not Detect); Respiratory Syncytial Virus Not Detected (Not Detect)
[2019-09-09] MEDS: Albuterol 2.5 MG/3 ML NEBULIZER IH PRN (20:30)
[2019-09-09] MEDS: Sennosides/Docusate Sodium TABLET PO SCH (21:23)
[2019-09-10] MEDS: methylPREDNISolone 125 MG/2 ML VIAL IVP SCH ×2 (01:12→07:55)
[2019-09-10 02:08] LABS: Hematocrit 38.3 % (35.3-44.9); Mean Corpuscular HGB Conc 32.1 g/dL (31.6-35.5); Mean Corpuscular Hemoglobin 30.6 pg (28.0-33.3); Mean Corpuscular Volume 95.3 fL (83.0-100.0); Mean Platelet Volume 10.6 fL (9.4-12.4); Platelet Count 241 K/mcL (140-400); Red Blood Count 4.02 M/mcL (3.82-4.97); Red Cell Distribution Width 15.4 % (11.5-14.5); White Blood Count 17.1 K/mcL (4.3-11.1)
[2019-09-10 02:11] LABS: Hemoglobin 12.3 g/dL (11.5-15.4)
[2019-09-10 02:24] LABS: BUN/Creatinine Ratio 28 (6-26); Blood Urea Nitrogen 15 mg/dL (6-20); Calcium 9.2 mg/dL (8.6-10.3); Carbon Dioxide 35 mEq/L (23-29); Chloride 101 mEq/L (98-107); Glucose 132 mg/dL (70-105); Osmolality,Calculated 289 (280-300); Phosphorous 2.9 mg/dL (2.7-4.5); Potassium 4.7 mEq/L (3.5-5.1); Sodium 138 mEq/L (136-145); eGFR For African Americans > 60 (> 60); eGFR For Non-African Americans > 60 (> 60)
[2019-09-10] MEDS: Ipratropium/Albuterol Neb 3 ML IH SCH ×4 (03:59→22:05)
[2019-09-10] MEDS: ALPRAZolam 1 MG TABLET PO SCH ×4 (07:55→23:14)
[2019-09-10] MEDS: Sennosides/Docusate Sodium TABLET PO SCH ×2 (07:55→23:00)
[2019-09-10] MEDS: Carisoprodol 350 MG TABLET PO SCH ×3 (07:56→23:11)
[2019-09-10] MEDS: Azithromycin 500 MG in 0.9 % Sodium Chloride 250 ML IVPB SCH (12:59)
[2019-09-10] MEDS ORDERED: cefTRIAXone 1,000 MG in Water for inj. (sterile) 10 ML IVP SCH (13:00)
[2019-09-10] MEDS: Mag Hydrox/Al Hydrox/Simeth 30 ML UDC PO PRN (14:09)
[2019-09-10] MEDS: predniSONE 20 MG TABLET PO SCH (17:24)
[2019-09-10] MEDS: *HR* Heparin 5,000 UNIT/ML VIAL SQ SCH (17:24)
[2019-09-10] MEDS: *HR* HYDROcodone/Acet 5/325 mg TABLET PO PRN (23:14)
[2019-09-11] MEDS: Ipratropium/Albuterol Neb 3 ML IH SCH ×4 (04:33→19:58)
[2019-09-11] MEDS: *HR* Heparin 5,000 UNIT/ML VIAL SQ SCH ×2 (06:28→17:09)
[2019-09-11 06:47] LABS: Basophils % 0.1 %; Hematocrit 35.9 % (35.3-44.9); Hemoglobin 11.5 g/dL (11.5-15.4); Immature Granulocytes % 0.5 % (0-4); Lymphocytes # 0.9 K/mcL (0.6-4.6); Lymphocytes % 5.3 %; Mean Corpuscular Hemoglobin 30.3 pg (28.0-33.3); Mean Corpuscular Volume 94.7 fL (83.0-100.0); Monocytes # 0.9 K/mcL (0.0-1.3); Monocytes % 5.2 %; Neutrophils # 14.9 K/mcL (1.6-8.9); Platelet Count 263 K/mcL (140-400); Red Blood Count 3.79 M/mcL (3.82-4.97); Red Cell Distribution Width 15.6 % (11.5-14.5); Segmented Neutrophils % 88.9 %; White Blood Count 16.8 K/mcL (4.3-11.1)
[2019-09-11 07:04] LABS: BUN/Creatinine Ratio 44 (6-26); Blood Urea Nitrogen 19 mg/dL (6-20); Calcium 9.4 mg/dL (8.6-10.3); Carbon Dioxide 36 mEq/L (23-29); Chloride 101 mEq/L (98-107); Glucose 129 mg/dL (70-105); Osmolality,Calculated 298 (280-300); Potassium 4.7 mEq/L (3.5-5.1); Sodium 142 mEq/L (136-145); eGFR For African Americans > 60 (> 60); eGFR For Non-African Americans > 60 (> 60)
[2019-09-11] MEDS ORDERED: Carisoprodol 350 MG TABLET PO PRN (08:39)
[2019-09-11] MEDS: predniSONE 20 MG TABLET PO SCH ×2 (09:40→17:09)
[2019-09-11] MEDS: ALPRAZolam 1 MG TABLET PO SCH ×4 (09:40→21:46)
[2019-09-11] MEDS: Sennosides/Docusate Sodium TABLET PO SCH ×2 (09:41→21:46)
[2019-09-11] MEDS: Azithromycin 500 MG in 0.9 % Sodium Chloride 250 ML IVPB SCH (12:54)
[2019-09-11] MEDS: Albuterol 2.5 MG/3 ML NEBULIZER IH PRN (17:11)
[2019-09-11] MEDS: *HR* HYDROcodone/Acet 5/325 mg TABLET PO PRN (17:13)
[2019-09-12] MEDS: Ipratropium/Albuterol Neb 3 ML IH SCH ×6 (03:36→20:14)
[2019-09-12] MEDS: *HR* Heparin 5,000 UNIT/ML VIAL SQ SCH ×2 (06:06→18:10)
[2019-09-12 06:18] LABS: Hematocrit 34.7 % (35.3-44.9); Hemoglobin 10.9 g/dL (11.5-15.4); Immature Granulocytes % 0.2 % (0-4); Lymphocytes # 0.9 K/mcL (0.6-4.6); Lymphocytes % 10.4 %; Mean Corpuscular HGB Conc 31.4 g/dL (31.6-35.5); Mean Corpuscular Hemoglobin 30.9 pg (28.0-33.3); Mean Corpuscular Volume 98.3 fL (83.0-100.0); Mean Platelet Volume 10.7 fL (9.4-12.4); Monocytes # 0.7 K/mcL (0.0-1.3); Monocytes % 7.5 %; Neutrophils # 7.4 K/mcL (1.6-8.9); Platelet Count 240 K/mcL (140-400); Red Blood Count 3.53 M/mcL (3.82-4.97); Red Cell Distribution Width 15.7 % (11.5-14.5); Segmented Neutrophils % 81.9 %
[2019-09-12 06:37] LABS: BUN/Creatinine Ratio 38 (6-26); Blood Urea Nitrogen 15 mg/dL (6-20); Calcium 9.1 mg/dL (8.6-10.3); Carbon Dioxide 39 mEq/L (23-29); Chloride 99 mEq/L (98-107); Glucose 105 mg/dL (70-105); Osmolality,Calculated 295 (280-300); Potassium 4.3 mEq/L (3.5-5.1); Sodium 142 mEq/L (136-145); eGFR For African Americans > 60 (> 60); eGFR For Non-African Americans > 60 (> 60)
[2019-09-12] MEDS: *HR* HYDROcodone/Acet 5/325 mg TABLET PO PRN ×2 (08:18→18:03)
[2019-09-12] MEDS: Sennosides/Docusate Sodium TABLET PO SCH ×2 (08:19→21:09)
[2019-09-12] MEDS: predniSONE 20 MG TABLET PO SCH ×2 (08:20→18:02)
[2019-09-12] MEDS: ALPRAZolam 1 MG TABLET PO SCH ×4 (08:20→21:09)
[2019-09-12] MEDS: Azithromycin 500 MG in 0.9 % Sodium Chloride 250 ML IVPB SCH (13:54)
[2019-09-12] MEDS: Piperacillin/Tazobactam 3.375 GM in 0.9 % Sodium Chloride Mini Bag 100 ML IVPB SCH (18:07)
[2019-09-13] MEDS: Ipratropium/Albuterol Neb 3 ML IH SCH ×7 (00:11→23:50)
[2019-09-13] MEDS: Piperacillin/Tazobactam 3.375 GM in 0.9 % Sodium Chloride Mini Bag 100 ML IVPB SCH ×4 (01:07→23:59)
[2019-09-13 06:08] LABS: Hematocrit 38.3 % (35.3-44.9); Hemoglobin 11.9 g/dL (11.5-15.4); Immature Granulocytes % 0.2 % (0-4); Lymphocytes # 0.6 K/mcL (0.6-4.6); Lymphocytes % 10.5 %; Mean Corpuscular HGB Conc 31.1 g/dL (31.6-35.5); Mean Corpuscular Hemoglobin 30.4 pg (28.0-33.3); Mean Platelet Volume 10.7 fL (9.4-12.4); Monocytes # 0.7 K/mcL (0.0-1.3); Monocytes % 11.5 %; Neutrophils # 4.6 K/mcL (1.6-8.9); Platelet Count 280 K/mcL (140-400); Red Blood Count 3.91 M/mcL (3.82-4.97); Red Cell Distribution Width 15.6 % (11.5-14.5); Segmented Neutrophils % 77.8 %; White Blood Count 5.9 K/mcL (4.3-11.1)
[2019-09-13] MEDS: *HR* Heparin 5,000 UNIT/ML VIAL SQ SCH ×2 (06:09→18:46)
[2019-09-13 06:41] LABS: BUN/Creatinine Ratio 29 (6-26); Blood Urea Nitrogen 12 mg/dL (6-20); Calcium 9.6 mg/dL (8.6-10.3); Carbon Dioxide 40 mEq/L (23-29); Chloride 97 mEq/L (98-107); Glucose 118 mg/dL (70-105); Osmolality,Calculated 297 (280-300); Potassium 4.4 mEq/L (3.5-5.1); Sodium 143 mEq/L (136-145); eGFR For African Americans > 60 (> 60); eGFR For Non-African Americans > 60 (> 60)
[2019-09-13] MEDS: Mag Hydrox/Al Hydrox/Simeth 30 ML UDC PO PRN (08:04)
[2019-09-13] MEDS: Sennosides/Docusate Sodium TABLET PO SCH ×2 (08:04→20:41)
[2019-09-13] MEDS: predniSONE 20 MG TABLET PO SCH ×2 (08:05→18:45)
[2019-09-13] MEDS: ALPRAZolam 1 MG TABLET PO SCH ×4 (08:05→20:41)
[2019-09-13] MEDS: *HR* HYDROcodone/Acet 5/325 mg TABLET PO PRN ×2 (08:05→18:45)
[2019-09-13] MEDS: Azithromycin 500 MG in 0.9 % Sodium Chloride 250 ML IVPB SCH (13:51)
[2019-09-13] MEDS: Azithromycin 250 MG TABLET PO SCH (16:24)
[2019-09-13] MEDS: Albuterol 2.5 MG/3 ML NEBULIZER IH PRN (18:41)
[2019-09-14 01:51] LABS: Basophils % 0.3 %; Eosinophils % 0.7 %; Hematocrit 38.6 % (35.3-44.9); Hemoglobin 12.4 g/dL (11.5-15.4); Immature Granulocytes % 0.3 % (0-4); Lymphocytes # 1.9 K/mcL (0.6-4.6); Lymphocytes % 30.5 %; Mean Corpuscular HGB Conc 32.1 g/dL (31.6-35.5); Mean Corpuscular Hemoglobin 30.7 pg (28.0-33.3); Mean Corpuscular Volume 95.5 fL (83.0-100.0); Mean Platelet Volume 10.2 fL (9.4-12.4); Monocytes # 1.1 K/mcL (0.0-1.3); Platelet Count 267 K/mcL (140-400); Red Blood Count 4.04 M/mcL (3.82-4.97); Red Cell Distribution Width 15.3 % (11.5-14.5); Segmented Neutrophils % 50.2 %; White Blood Count 6.1 K/mcL (4.3-11.1)
[2019-09-14 02:13] LABS: BUN/Creatinine Ratio 31 (6-26); Blood Urea Nitrogen 18 mg/dL (6-20); Calcium 9.3 mg/dL (8.6-10.3); Carbon Dioxide 38 mEq/L (23-29); Chloride 97 mEq/L (98-107); Glucose 99 mg/dL (70-105); Osmolality,Calculated 290 (280-300); Potassium 4.2 mEq/L (3.5-5.1); Sodium 139 mEq/L (136-145); eGFR For African Americans > 60 (> 60); eGFR For Non-African Americans > 60 (> 60)
[2019-09-14] MEDS: Ipratropium/Albuterol Neb 3 ML IH SCH ×6 (03:55→23:29)
[2019-09-14] MEDS: *HR* Heparin 5,000 UNIT/ML VIAL SQ SCH ×2 (06:08→18:27)
[2019-09-14] MEDS: Piperacillin/Tazobactam 3.375 GM in 0.9 % Sodium Chloride Mini Bag 100 ML IVPB SCH ×2 (08:19→16:28)
[2019-09-14] MEDS: ALPRAZolam 1 MG TABLET PO SCH ×4 (08:19→21:54)
[2019-09-14] MEDS: predniSONE 20 MG TABLET PO SCH ×2 (08:19→16:28)
[2019-09-14] MEDS: Sennosides/Docusate Sodium TABLET PO SCH ×2 (08:19→21:54)
[2019-09-14] MEDS: Azithromycin 250 MG TABLET PO SCH (16:28)
[2019-09-14] MEDS: *HR* HYDROcodone/Acet 5/325 mg TABLET PO PRN (21:54)
[2019-09-15] MEDS: Piperacillin/Tazobactam 3.375 GM in 0.9 % Sodium Chloride Mini Bag 100 ML IVPB SCH ×3 (00:21→16:49)
[2019-09-15] MEDS: Ipratropium/Albuterol Neb 3 ML IH SCH ×4 (03:56→15:43)
[2019-09-15] MEDS: ALPRAZolam 1 MG TABLET PO SCH ×3 (08:55→16:53)
[2019-09-15] MEDS: Sennosides/Docusate Sodium TABLET PO SCH (08:56)
[2019-09-15] MEDS: predniSONE 20 MG TABLET PO SCH ×2 (08:56→16:49)
[2019-09-15] MEDS: *HR* Heparin 5,000 UNIT/ML VIAL SQ SCH ×2 (09:04→16:49)
[2019-09-15 12:40] VITALS: BP 107/79
[2019-09-15] MEDS: Azithromycin 250 MG TABLET PO SCH (14:38)
== END 2019-09-15 17:46 | disposition home health service (06) | DRG 720 ==
LOC: EMEROOARM 11:55 → 2NENU 11:55 → SUATTDRO 14:53 → 2NENU 16:33 → SUATTDRO 09-11 12:16
PROVIDERS: ADMIT Internal Medicine; ATTEND Internal Medicine